=== PATIENT | female | born 1975 | race Caucasian/White ===

== ENCOUNTER → 2020-09-18 14:54 | Outpatient (BNVA) | payer MEDICAID, SELFPAY | PROVIDERS: PCP Family Medicine; Visit Provider Urology ==

== ENCOUNTER 2021-07-29 12:55 | Outpatient (REF) | payer MEDICAID, SELFPAY ==
--- NOTE | ~2021-07-29 | US_ITS ---
EXAMINATION: US RETROPERITONEAL LIMITED (RENAL ONLY) CLINICAL INFORMATION: Calculus of kidney. COMPARISON: Ultrasound abdomen complete 05/09/2017. TECHNIQUE: Real-time imaging of the kidneys. FINDINGS: RIGHT KIDNEY: 12.5 x 6.2 x 6.8 cm (SAG x AP x TRV). The kidney is normal in size, contour, and echogenicity. Renal cortical thickness is normal. No calculi or focal parenchymal lesions. No hydronephrosis. LEFT KIDNEY: 11.8 x 6.9 x 5.1 cm (SAG x AP x TRV). The kidney is normal in size, contour, and echogenicity. Renal cortical thickness is normal. No calculi or focal parenchymal lesions. No hydronephrosis. US/US renal BI IMPRESSION: No stone seen.
== END 2021-07-29 12:56 | disposition home or self-care (01) ==
LOC: HO.US 12:55
PROVIDERS: PCP Internal Medicine; Visit Provider Urology
DX: N20.0 Calculus of kidney (principal)
CPT/HCPCS: 76775

== ENCOUNTER → 2021-08-18 08:23 | Outpatient (BNVA) | payer MEDICAID, SELFPAY | PROVIDERS: PCP Internal Medicine; Visit Provider Urology | DX: N20.0 Calculus of kidney (principal); N32.81 Overactive bladder ==

== ENCOUNTER 2021-11-30 15:06 | Emergency (ER) | payer MEDICAID, SELFPAY ==
--- NOTE | ~2021-11-30 | US_ITS ---
EXAMINATION: ULTRASOUND OF THE PELVIS CLINICAL INFORMATION: Heavy vaginal bleeding. COMPARISON: None. TECHNIQUE: Transabdominal and transvaginal pelvic ultrasound. A transvaginal study was performed in addition to the transabdominal study which did not yield an adequate examination of the uterus and ovaries due to superimposed distended gas-filled loops of bowel. FINDINGS: The uterus is normal in size and appearance, measuring 9 x 4.5 x 5.6 cm longitudinally, anteroposteriorly and transversely. The endometrial stripe thickness is normal, measuring 1 cm in thickness. No focal myometrial mass is seen. Nabothian cysts are identified, appearing complex with internal echoes. The largest measures up to 1 cm. The ovaries bilaterally are visualized, with the right ovary measuring 4.7 x 3.4 x 3.9 cm and the left ovary measuring 2.9 x 1.7 x 1.6 cm. Dominant right ovarian cyst measures 3.1 cm with some internal echoes noted. No adnexal mass or free fluid collection seen. US/US pelvic and transvaginal IMPRESSION: Dominant right ovarian cyst measures 3.1 cm with some internal echoes. This could be a hemorrhagic cyst. Normal appearance of the endometrium. Complex nabothian cysts..
[2021-11-30 16:23] VITALS: BP 124/70; PULSE 86; RESP 16; TEMP 36.2; O2SAT 98; BMI 36.1
[2021-11-30 17:07] LABS: Hematocrit 40.1 % (37.0-47.0); Hemoglobin 12.8 g/dl (12.0-16.0); Mean Corpuscular HGB Conc 31.9 g/dl (31.0-35.0); Mean Corpuscular Hemoglobin 28.4 pg (27.0-33.0); Mean Corpuscular Volume 89.1 fL (80.0-98.0); Mean Platelet Volume 9.8 fL (9.4-12.3); Platelet Count 479 X10*3/uL (160-400); Red Cell Distribution Width 13.6 % (11.0-16.0); White Blood Count 16.8 X10*3/uL (4.8-10.8)
[2021-11-30 17:20] LABS: Anion Gap 11 (12-20); Blood Urea Nitrogen 13 mg/dL (9-16); Calcium 9.5 mg/dL (8.4-10.2); Carbon Dioxide 28 mmol/L (22-29); Chloride 103 mmol/L (96-108); Creatinine Clr Calc Pharmacy 95.8; Estimated Glomerular Filt Rate > 60; Glucose Random 69 mg/dL (60-115); Potassium 4.2 mmol/L (3.3-5.1); Sodium 138 mmol/L (135-145)
[2021-11-30 17:31] LABS: Atypical Lymph Absolute Manual 0.8 x10*3/uL; Atypical Lymphs Percent Manual 5 % (0-6); Band Neutrophils Percent 0 % (3-5); Basophils Abs Manual 0.2 X10*3/uL (0.0-0.2); Basophils Percent Manual 1 % (0-2); Eosinophils Absolute Manual 0.3 X10*3/uL (0.0-0.4); Eosinophils Percent Manual 2 % (0-4); Large Platelet PRESENT; Lymphocytes Absolute Manual 4.2 X10*3/uL (1.2-4.9); Lymphocytes Percent Manual 25 % (20-40); Monocytes Absolute Manual 1.7 X10*3/uL (0.1-1.2); Monocytes Percent Manual 10 % (2-11); Neutrophils Absolute Manual 9.6 X10*3/uL (2.0-8.3); Neutrophils Percent Manual 57 % (45-73); Platelet Estimate NORMAL (NORMAL); Platelet Morphology Comment NORMAL; RBC Morphology NORMAL
[2021-11-30 17:32] LABS: Acanthocytes 1+ (0-2) /OIF; Tear Drop Cells 1+ (0-2) /OIF; Toxic Vacuolation PRESENT
[2021-11-30 21:34] LABS: HCG Quantitative < 2 mIU/mL
[2021-11-30 22:29] VITALS: BP 121/72; PULSE 80; RESP 18; O2SAT 97
--- NOTE | 2021-11-30 22:34 | ED_ITS ---
HPI - Female Genitourinary General Chief complaint: Abdominal Pain Stated complaint: vaginal bleeding for 20 days Time Seen by Provider: 11/30/21 21:06 Source: patient Mode of arrival: ambulatory Limitations: no limitations History of Present Illness HPI Narrative: Patient comes to the emergency room complaining of heavy vaginal bleeding. Patient states that she has been having her menstrual period for 20 days. Patient states that over the last few months, her menstrual periods have been coming irregular, sometimes she has menstrual. Sometimes she does not, and at times like this time, it is very heavy. Patient denies abdominal pain, no chest pain or shortness of breath. Related Data Home Medications Medication Instructions Recorded Confirmed amlodipine 10 mg tablet 10 mg PO DAILY 08/18/21 aspirin 81 mg tablet,delayed 81 mg PO DAILY 08/18/21 release atorvastatin 40 mg tablet 40 mg PO DAILY 08/18/21 calcium carbonate 600 mg-vitamin 1 tab PO DAILY 08/18/21 D3 10 mcg (400 unit) tablet cetirizine 10 mg tablet 10 mg PO DAILY 08/18/21 clonazepam 1 mg tablet 1 mg PO TID PRN 08/18/21 escitalopram oxalate 10 mg tablet 10 mg PO DAILY 08/18/21 gabapentin 800 mg tablet 800 mg PO TID 08/18/21 glipizide 5 mg tablet 5 mg PO BID 08/18/21 hydrochlorothiazide 25 mg tablet 25 mg PO DAILY 08/18/21 losartan 100 mg tablet 100 mg PO DAILY 08/18/21 metformin 1,000 mg tablet 1,000 mg PO 08/18/21 Previous Rx's Medication Instructions Recorded tolterodine 4 mg capsule,extended 4 mg PO BID #180 caps 08/18/21 release 24 hr medroxyprogesterone 10 mg tablet 10 mg PO DAILY #10 tabs 12/01/21 (Provera) Allergies Allergy/AdvReac Type Severity Reaction Status Date / Time No Known Allergies Allergy Verified 11/30/21 16:38 [No Known Allergies*] Review of Systems Review of Systems: Constitutional : No Weight loss, No Fever, No Chills, No Night Sweats, No Fatigue, No Malaise ENT/Mouth : No Hearing loss, No Ear Pain, No Nasal Congestion, No Sinus Pain, No Hoarseness, No sore throat, No Rhinorrhea, No Swallowing Difficulty Eyes: No Eye Pain, No Swelling, No Redness, No Foreign Body, No Discharge, No Vision Changes Cardiovascular : No Chest Pain, No SOB, No Dyspnea on Exertion, No Orthopnea, No Edema, No Palpitations Respiratory : No Cough, No Sputum, No Wheezing, No Smoke Exposure, No Dyspnea Gastrointestinal : No Nausea, No Vomiting, No Diarrhea, No Constipation, No abdominal Pain, No Hematochezia, No Melena Genitourinary : Complaining of intermittent, irregular heavy vaginal bleeding, No Dysuria, No Urinary Frequency, No Hematuria, No Urinary Incontinence, No Urgency, No Flank Pain, No Urinary Flow Changes, No Hesitancy Musculoskeletal : No joint pain, No Myalgias, No Joint Swelling Skin : No Skin Lesions, No rash Neuro : No Weakness, No Numbness, No Paresthesias, No Loss of Consciousness, No Dizziness, No Headache Psych : No Anxiety/Panic, No Depression, No SI/HI/AH/VH, No Social Issues, Heme/Lymph: No Bruising, No Bleeding,No Lymphadenopathy Endocrine : No Polyuria, No Polydipsia, No Temperature Intolerance [facility] Past Medical History Medical History Carpal tunnel syndrome, bilateral Diabetes mellitus HTN (hypertension) Hyperlipidemia Urgency incontinence Urinary incontinence Surgical History History of surgery Family History Family History Father Skin cancer Diabetes mellitus Mother Diabetes mellitus Social History Social History Advance Directives: No Physical Exam Vital Signs: Vital Signs: Last Vital Signs Temp 97.2 F 11/30/21 16:23 Pulse 80 11/30/21 22:29 Resp 18 11/30/21 22:29 BP 121/72 11/30/21 22:29 Pulse Ox 97 11/30/21 22:29 O2 Del Method 11/30/21 22:29 BMI result Body Mass Index 36.1 Const: Other: Appearance: Alert. Oriented X3. No acute distress. Eyes: Pupils equal, round and reactive to light. ENT: Pharynx normal. Neck: Normal inspection. Neck supple. No lymph nodes noted. No crepitus CVS: Normal heart rate and rhythm. Pulses normal. Normal S1 and S2 Respiratory: No respiratory distress. Breath sounds normal. No Wheezing. No rales Abdomen: Soft and nontender. No rigidity. No distention. : Patient has mild to moderate vaginal bleeding. No cervical bleeding with applied pressure in the suprapubic area. No pain in the adnexa. Skin: Skin warm and dry. Normal skin color. Normal skin turgor. Extremities: No lower extremity edema. No Lacerations. No Rash Neuro: Oriented X 3. No motor deficit. No sensory deficit. Moving all extremities. No slurred speech. CN 2 through 12 grossly intact Psych: calm, cooperative, normal affect Course Course Course Narrative: This time, patient has oxog-wl-bdhmwpme vaginal bleeding. I discussed the ultrasound with the patient, patient may have hemorrhagic cyst. However, patient does not have any abdominal pain at this time. We do not have Provera and this facility. Patient will go to a 24 hour pharmacy and start treatment Despite 20 days of vaginal bleeding. Patient's hemoglobin and hematocrit is stable. MDM - Female Genitourinary Lab Data Result diagrams: 11/30/21 16:54 11/30/21 16:54 Labs: Lab Results 11/30/21 11/30/21 Range/Units 16:54 16:54 WBC 16.8 H (4.8-10.8) X10*3/uL RBC 4.50 (4.20-5.50) X10*6/uL Hgb 12.8 (12.0-16.0) g/dl Hct 40.1 (37.0-47.0) % MCV 89.1 (80.0-98.0) fL MCH 28.4 (27.0-33.0) pg MCHC 31.9 (31.0-35.0) g/dl RDW 13.6 (11.0-16.0) % Plt Count 479 H (160-400) X10*3/uL MPV 9.8 (9.4-12.3) fL Immature Gran % (Auto) Cancelled Neut % (Auto) Cancelled Lymph % (Auto) Cancelled [place] % (Auto) Cancelled Eos % (Auto) Cancelled Baso % (Auto) Cancelled Lymph # (Auto) Cancelled [place] # (Auto) Cancelled Eos # (Auto) Cancelled Baso # (Auto) Cancelled Abs Immat Gran (auto) Cancelled Absolute Neuts (auto) Cancelled Absolute Nucleated RBC 0.000 (0.0-0.012) X10*3/uL Nucleated RBC % (auto) 0.0 (0.0-0.2) /100WBC Neutrophils % (Manual) 57 (45-73) % Band Neutrophils % 0 L (3-5) % Lymphocytes % (Manual) 25 (20-40) % Atypical Lymphs % (Man) 5 (0-6) % Monocytes % (Manual) 10 (2-11) % Eosinophils % (Manual) 2 (0-4) % Basophils % (Manual) 1 (0-2) % Abs Neuts (Manual) 9.6 H (2.0-8.3) X10*3/uL Lymphocytes # (Manual) 4.2 (1.2-4.9) X10*3/uL Atyp Lymphs # (Manual) 0.8 x10*3/uL Monocytes # (Manual) 1.7 H (0.1-1.2) X10*3/uL Eosinophils # (Manual) 0.3 (0.0-0.4) X10*3/uL Basophils # (Manual) 0.2 (0.0-0.2) X10*3/uL Toxic Vacuolation PRESENT Platelet Estimate NORMAL (NORMAL) Large Platelets PRESENT Plt Morphology Comment NORMAL RBC Morphology NORMAL Tear Drop Cells 1+ (0-2) /OIF Acanthocytes (Spur) 1+ (0-2) /OIF Sodium 138 (135-145) mmol/L Potassium 4.2 (3.3-5.1) mmol/L Chloride 103 (96-108) mmol/L Carbon Dioxide 28 (22-29) mmol/L Anion Gap 11 L (12-20) BUN 13 (9-16) mg/dL Creatinine 0.76 (0.5-1.4) mg/dL Estim Creat Clear Calc 95.8 Estimated GFR > 60 Random Glucose 69 (60-115) mg/dL Calcium 9.5 (8.4-10.2) mg/dL Beta HCG, Quant < 2 mIU/mL Imaging Data Pelvic ultrasound: Radiologist's impression: FINDINGS: The uterus is normal in size and appearance, measuring 9 x 4.5 x 5.6 cm longitudinally, anteroposteriorly and transversely. The endometrial stripe thickness is normal, measuring 1 cm in thickness. No focal myometrial mass is seen. Nabothian cysts are identified, appearing complex with internal echoes. The largest measures up to 1 cm. The ovaries bilaterally are visualized, with the right ovary measuring 4.7 x 3.4 x 3.9 cm and the left ovary measuring 2.9 x 1.7 x 1.6 cm. Dominant right ovarian cyst measures 3.1 cm with some internal echoes noted. No adnexal mass or free fluid collection seen. US/US pelvic and transvaginal IMPRESSION: Dominant right ovarian cyst measures 3.1 cm with some internal echoes. This could be a hemorrhagic cyst. ? Normal appearance of the endometrium. ? Complex nabothian cysts.. Discharge Plan Discharge Clinical Impression: Dysfunctional uterine bleeding Patient Disposition: Home, Self-Care Instructions: Dysfunctional Uterine Bleeding (ED) Additional Instructions: Please follow-up with your primary care physician tomorrow. If you have any worsening or new symptoms, please return to the emergency room or call 911 Prescriptions: New medroxyprogesterone [Provera] 10 mg tablet 10 mg PO DAILY Qty: 10 0RF No Action clonazepam 1 mg tablet 1 mg PO TID PRN gabapentin 800 mg tablet 800 mg PO TID cetirizine 10 mg tablet 10 mg PO DAILY calcium carbonate-vitamin D3 600 mg-10 mcg (400 unit) tablet 1 tab PO DAILY glipizide 5 mg tablet 5 mg PO BID atorvastatin 40 mg tablet 40 mg PO DAILY hydrochlorothiazide 25 mg tablet 25 mg PO DAILY amlodipine 10 mg tablet 10 mg PO DAILY losartan 100 mg tablet 100 mg PO DAILY aspirin 81 mg tablet,delayed release (DR/EC) 81 mg PO DAILY metformin 1,000 mg tablet 1,000 mg PO escitalopram oxalate 10 mg tablet 10 mg PO DAILY tolterodine 4 mg capsule,extended release 24hr 4 mg PO BID Qty: 180 3RF
[2021-12-01 00:23] VITALS: BP 120/79; PULSE 70; RESP 16; TEMP 36.4; O2SAT 100
== END 2021-12-01 00:51 | disposition home or self-care (01) ==
PROVIDERS: Emergency Provider Emergency Medicine; PCP Internal Medicine
DX: N93.8 Other specified abnormal uterine and vaginal bleeding (principal); N92.0 Excessive and frequent menstruation with regular cycle; Z79.899 Other long term (current) drug therapy
CPT/HCPCS: 36415; 76830; 76856; 80048; 84702; 85007; 85025; 85027; 86850; 86900; 86901; 99283

== ENCOUNTER 2021-12-09 13:39 | Emergency (ER) | payer MEDICAID, SELFPAY ==
[2021-12-09 13:59] VITALS: BP 130/86; PULSE 92; RESP 18; TEMP 36.7; O2SAT 98; BMI 37.6
[2021-12-09 14:13] LABS: Hematocrit 34.3 % (37.0-47.0); Hemoglobin 11.1 g/dl (12.0-16.0); Mean Corpuscular HGB Conc 32.4 g/dl (31.0-35.0); Mean Corpuscular Hemoglobin 28.4 pg (27.0-33.0); Mean Corpuscular Volume 87.7 fL (80.0-98.0); Mean Platelet Volume 9.5 fL (9.4-12.3); Platelet Count 480 X10*3/uL (160-400); Red Blood Count 3.91 X10*6/uL (4.20-5.50); Red Cell Distribution Width 13.7 % (11.0-16.0)
[2021-12-09 14:35] LABS: Anion Gap 13 (12-20); Blood Urea Nitrogen 12 mg/dL (9-16); Calcium 8.9 mg/dL (8.4-10.2); Carbon Dioxide 25 mmol/L (22-29); Chloride 103 mmol/L (96-108); Creatinine Clr Calc Pharmacy 94.9; Estimated Glomerular Filt Rate > 60; Glucose Random 167 mg/dL (60-115); Potassium 3.9 mmol/L (3.3-5.1); Sodium 137 mmol/L (135-145)
--- NOTE | 2021-12-09 20:50 | ED_ITS ---
HPI - Female Genitourinary General Chief complaint: Vaginal Bleeding Stated complaint: cyst and bleeding Time Seen by Provider: 12/09/21 20:06 Source: patient, family and certified court/medical interpreter Mode of arrival: ambulatory History of Present Illness HPI Narrative: 46-year-old female who presents for persistent vaginal bleeding and reports maximum of 3 pads a day and feeling fatigued. She denies any fevers chills but states that she was seen here on 12/01 and diagnosed with DUB and started on Provera 10 mg daily. She states she has some mild cramping but denies any palpitations or shortness S of breath. Related Data Home Medications Medication Instructions Recorded Confirmed amlodipine 10 mg tablet 10 mg PO DAILY 08/18/21 aspirin 81 mg tablet,delayed 81 mg PO DAILY 08/18/21 release atorvastatin 40 mg tablet 40 mg PO DAILY 08/18/21 calcium carbonate 600 mg-vitamin 1 tab PO DAILY 08/18/21 D3 10 mcg (400 unit) tablet cetirizine 10 mg tablet 10 mg PO DAILY 08/18/21 clonazepam 1 mg tablet 1 mg PO TID PRN 08/18/21 escitalopram oxalate 10 mg tablet 10 mg PO DAILY 08/18/21 gabapentin 800 mg tablet 800 mg PO TID 08/18/21 glipizide 5 mg tablet 5 mg PO BID 08/18/21 hydrochlorothiazide 25 mg tablet 25 mg PO DAILY 08/18/21 losartan 100 mg tablet 100 mg PO DAILY 08/18/21 metformin 1,000 mg tablet 1,000 mg PO 08/18/21 Previous Rx's Medication Instructions Recorded tolterodine 4 mg capsule,extended 4 mg PO BID #180 caps 08/18/21 release 24 hr medroxyprogesterone 10 mg tablet 10 mg PO DAILY #10 tabs 12/01/21 (Provera) medroxyprogesterone 10 mg tablet 10 mg PO DAILY #10 tabs 12/09/21 (Provera) nitrofurantoin 100 mg PO Q12H 5 days #10 caps 12/09/21 monohydrate/macrocrystals 100 mg capsule (Macrobid) Allergies Allergy/AdvReac Type Severity Reaction Status Date / Time No Known Allergies Allergy Verified 11/30/21 16:38 [No Known Allergies*] Review of Systems Review of Systems: Pertinent positives and negatives as stated in HPI 10 point review of systems is otherwise negative. PMFSH Past Medical History Source: nursing notes reviewed Medical History Carpal tunnel syndrome, bilateral Diabetes mellitus HTN (hypertension) Hyperlipidemia Urgency incontinence Urinary incontinence Surgical History History of surgery Family History Family History Father Skin cancer Diabetes mellitus Mother Diabetes mellitus Social History Social History Advance Directives: No Advance Directives Information Provided: Yes Physical Exam Vital Signs: Vital Signs: Last Vital Signs Temp 98.1 F 12/09/21 13:59 Pulse 92 12/09/21 13:59 Resp 18 12/09/21 13:59 BP 130/86 12/09/21 13:59 Pulse Ox 98 12/09/21 13:59 O2 Del Method 12/09/21 13:59 BMI result Body Mass Index 37.6 VITAL SIGNS: Reviewed. GENERAL: Well developed, well nourished, in no acute distress. HEAD: Normocephalic/atraumatic EYES: PERRLA, EOMI EARS: Ext canals without abnormality OROPHARYNX: no oral lesions noted, posterior pharynx clear LUNGS: Normal breath sounds. No adventitious sounds or accessory muscle use. SpO2<98> CARDIOVASCULAR: Regular rate and rhythm without noted murmurs ABDOMEN: Soft, non-tender, non-distended with bowel sounds. MUSCULOSKELETAL: No tenderness, deformities, or effusions noted on gross inspection. EXTREMITIES: No cyanosis, clubbing or edema. SKIN: Inspection of the skin reveals no rashes NEUROLOGIC: Alert and oriented x 4. Course Course Course Narrative: 46-year-old female with history and clinical presentation consistent with DUB. Review of all investigations demonstrates mild anemia and I discussed case with the on-call appliance fixer and recommendation is for continuation of the Provera and he will adjust patient's appointment but she needs to call the office in the morning. Patient has been diagnosed the UTI as well. MDM - Female Genitourinary Lab Data Result diagrams: 12/09/21 14:07 12/09/21 14:07 Labs: Lab Results 12/09/21 12/09/21 12/09/21 Range/Units 14:07 14:07 21:05 WBC 12.0 H (4.8-10.8) X10*3/uL RBC 3.91 L (4.20-5.50) X10*6/uL Hgb 11.1 L (12.0-16.0) g/dl Hct 34.3 L (37.0-47.0) % MCV 87.7 (80.0-98.0) fL MCH 28.4 (27.0-33.0) pg MCHC 32.4 (31.0-35.0) g/dl RDW 13.7 (11.0-16.0) % Plt Count 480 H (160-400) X10*3/uL MPV 9.5 (9.4-12.3) fL Absolute Nucleated RBC 0.000 (0.0-0.012) X10*3/uL Nucleated RBC % (auto) 0.0 (0.0-0.2) /100WBC Sodium 137 (135-145) mmol/L Potassium 3.9 (3.3-5.1) mmol/L Chloride 103 (96-108) mmol/L Carbon Dioxide 25 (22-29) mmol/L Anion Gap 13 (12-20) BUN 12 (9-16) mg/dL Creatinine 0.78 (0.5-1.4) mg/dL Estim Creat Clear Calc 94.9 Estimated GFR > 60 POC Glucose 87 (60-115) mg/dL Random Glucose 167 H (60-115) mg/dL Calcium 8.9 D (8.4-10.2) mg/dL Urine Color Urine Appearance Urine pH (5.0-8.0) Ur Specific [place] (1.005-1.025) Urine Protein (NEG-TRACE) MG/DL Urine Glucose (UA) (NEG) MG/DL Urine Ketones (NEG) MG/DL Urine Blood (NEG) Urine Nitrite (NEG) Ur Leukocyte Esterase (NEG) Urine RBC (0) /HPF Urine WBC (0-4) /HPF Ur Squamous Epith Cells /LPF Urine Bacteria /LPF Urine Test (NEGATIVE) 12/09/21 12/09/21 Range/Units 21:07 21:07 WBC (4.8-10.8) X10*3/uL RBC (4.20-5.50) X10*6/uL Hgb (12.0-16.0) g/dl Hct (37.0-47.0) % MCV (80.0-98.0) fL MCH (27.0-33.0) pg MCHC (31.0-35.0) g/dl RDW (11.0-16.0) % Plt Count (160-400) X10*3/uL MPV (9.4-12.3) fL Absolute Nucleated RBC (0.0-0.012) X10*3/uL Nucleated RBC % (auto) (0.0-0.2) /100WBC Sodium (135-145) mmol/L Potassium (3.3-5.1) mmol/L Chloride (96-108) mmol/L Carbon Dioxide (22-29) mmol/L Anion Gap (12-20) BUN (9-16) mg/dL Creatinine (0.5-1.4) mg/dL Estim Creat Clear Calc Estimated GFR POC Glucose (60-115) mg/dL Random Glucose (60-115) mg/dL Calcium (8.4-10.2) mg/dL Urine Color OTHER A Urine Appearance HAZY Urine pH 5.5 (5.0-8.0) Ur Specific [place] 1.025 (1.005-1.025) Urine Protein TRACE (NEG-TRACE) MG/DL Urine Glucose (UA) NEG (NEG) MG/DL Urine Ketones NEG (NEG) MG/DL Urine Blood 3+ H (NEG) Urine Nitrite NEG (NEG) Ur Leukocyte Esterase 2+ H (NEG) Urine RBC 50-75 H (0) /HPF Urine WBC 5-9 H (0-4) /HPF Ur Squamous Epith Cells TRACE /LPF Urine Bacteria TRACE /LPF Urine Test NEGATIVE (NEGATIVE) Discharge Plan Discharge Clinical Impression: Abnormal uterine bleeding (AUB), UTI (urinary tract infection), Anemia Patient Disposition: Home, Self-Care Instructions: Iron Supplements (By mouth), Dysfunctional Uterine Bleeding (ED), Urinary Tract Infection in Women (ED), Iron Rich Diet (ED), Anemia (ED) Additional Instructions: 1. Complete todo el curso de antibi?ticos seg?n lo prescrito. 2. Continuar? con Provera hasta que sea evaluado por el Dr. Zerbe 3. Recomiende comenzar con suplementos de wilfredo de venta tra, ya que se le proporcion? la informaci?n anterior y debe tomarlo diariamente. Deber? tomarlo con alimentos y beber keenan agua, ya que puede causar algo de estre?imiento y cambiar? lopez ke a un color oscuro / thee. 4. El Dr. Alcantar gannon dicho que llame a la oficina por la ma?gissel y acerque la tami al lunes. Regrese a la mar de emergencias si los s?ntomas empeoran. Prescriptions: New nitrofurantoin monohyd/m-cryst [Macrobid] 100 mg capsule 100 mg PO Q12H 5 Days Qty: 10 0RF Rx Instructions: must administer with a meal/food medroxyprogesterone [Provera] 10 mg tablet 10 mg PO DAILY Qty: 10 0RF No Action medroxyprogesterone [Provera] 10 mg tablet 10 mg PO DAILY Qty: 10 0RF clonazepam 1 mg tablet 1 mg PO TID PRN gabapentin 800 mg tablet 800 mg PO TID cetirizine 10 mg tablet 10 mg PO DAILY calcium carbonate-vitamin D3 600 mg-10 mcg (400 unit) tablet 1 tab PO DAILY glipizide 5 mg tablet 5 mg PO BID atorvastatin 40 mg tablet 40 mg PO DAILY hydrochlorothiazide 25 mg tablet 25 mg PO DAILY amlodipine 10 mg tablet 10 mg PO DAILY losartan 100 mg tablet 100 mg PO DAILY aspirin 81 mg tablet,delayed release (DR/EC) 81 mg PO DAILY metformin 1,000 mg tablet 1,000 mg PO escitalopram oxalate 10 mg tablet 10 mg PO DAILY tolterodine 4 mg capsule,extended release 24hr 4 mg PO BID Qty: 180 3RF Referrals: Henry Harvey MD [Primary Care Provider] - Mina Alcantar MD [Physician] - Print Language: Yi
[2021-12-09 21:12] LABS: Glucose, Whole Blood 87 mg/dL (60-115)
[2021-12-09 21:14] LABS: Appearance Urine HAZY; Color Urine OTHER; Glucose Urine UA NEG (NEG); Leukocyte Esterase Urine 2+ (NEG); Nitrite Urine NEG (NEG); PH 5.5 (5.0-8.0); Specific Gravity - Urine 1.025 (1.005-1.025); UACC Culture Trigger YES; Urine Blood 3+ (NEG); Urine Ketones NEG (NEG); Urine Protein TRACE MG/DL (NEG-TRACE)
[2021-12-09 21:17] LABS: UPreg QC Valid YES; Urine Pregnancy NEGATIVE (NEGATIVE)
[2021-12-09 21:20] LABS: Bacteria Urine TRACE /LPF; RBC Urine 50-75 /HPF (0); Squamous Epithelial Cell Urine TRACE /LPF
[2021-12-09] MEDS: Nitrofurantoin Monohyd/M-Cryst 100 MG CAPSULE PO (21:54)
== END 2021-12-09 22:06 | disposition home or self-care (01) ==
PROVIDERS: Emergency Provider Student in an Organized Health Care Education/Training Program; PCP Internal Medicine
DX: N39.0 Urinary tract infection, site not specified (principal); N93.8 Other specified abnormal uterine and vaginal bleeding; Z79.899 Other long term (current) drug therapy; Z79.82 Long term (current) use of aspirin
CPT/HCPCS: 36415; 80048; 81001; 81025; 82947; 85027; 87086; 99282; 99283

== ENCOUNTER 2021-12-15 13:36 | Outpatient (REF) | payer MEDICAID, SELFPAY ==
[2021-12-16 06:51] LABS: CT PCR NOT DETECTED (Not Detect.); NG PCR NOT DETECTED (Not Detect.)
[2021-12-18 12:47] LABS: HPV mRNA E6/E7 rflx Not Detected (Not Detected)
== END 2021-12-15 13:37 | disposition home or self-care (01) ==
LOC: HO.LAB 13:36
PROVIDERS: Visit Provider Obstetrics & Gynecology
DX: Z01.419 Encounter for gynecological examination (general) (routine) without abnormal findings (principal); N93.9 Abnormal uterine and vaginal bleeding, unspecified; N83.299 Other ovarian cyst, unspecified side
CPT/HCPCS: 87491; 87591; 87624; 88142; 99212

== ENCOUNTER 2022-01-05 10:19 | Outpatient (REF) | payer MEDICAID, SELFPAY ==
--- NOTE | ~2022-01-05 | MM_ITS ---
EXAMINATION: MM SCREENING DIGITAL BREAST TOMOSYNTHESIS, BILATERAL CLINICAL INFORMATION: Screening. Asymptomatic. The lifetime risk of breast cancer based on the Tyrer-Cuzick Model is 8%. COMPARISON: Mammography: 08/01/2019, 09/08/2016, 02/21/2014 TECHNIQUE: Digital breast tomosynthesis is performed in both the craniocaudal and mediolateral oblique views along with computer-aided detection (CAD). Synthesized 2D images are generated from the tomosynthesis. FINDINGS: There are scattered areas of fibroglandular density (ACR BI-RADS breast composition Category b). Parenchymal pattern is similar to prior exams. There is no significant mass or architectural abnormality. No developing density or abnormal calcifications. The axilla and skin contours are unremarkable. MM/MM tomosynthesis screening BI IMPRESSION: No mammographic evidence of malignancy. ASSESSMENT: BI-RADS 1: Negative RECOMMENDATION: Routine annual mammography screening. This patient's information was entered into a reminder system with a target due date for their next mammogram.
== END 2022-01-05 10:20 | disposition home or self-care (01) ==
LOC: HO.MAMMO 10:19
PROVIDERS: Visit Provider Obstetrics & Gynecology
DX: Z12.31 Encounter for screening mammogram for malignant neoplasm of breast (principal)
CPT/HCPCS: 77063; 77067

== ENCOUNTER 2022-01-07 10:23 | Outpatient (REF) | payer MEDICAID, SELFPAY ==
[2022-01-07 11:28] LABS: Hematocrit 39.2 % (37.0-47.0); Hemoglobin 12.6 g/dl (12.0-16.0); Mean Corpuscular HGB Conc 32.1 g/dl (31.0-35.0); Mean Corpuscular Hemoglobin 28.3 pg (27.0-33.0); Mean Corpuscular Volume 87.9 fL (80.0-98.0); Mean Platelet Volume 10.1 fL (9.4-12.3); Platelet Count 540 X10*3/uL (160-400); Red Blood Count 4.46 X10*6/uL (4.20-5.50); Red Cell Distribution Width 13.3 % (11.0-16.0); White Blood Count 10.9 X10*3/uL (4.8-10.8)
[2022-01-07 12:15] LABS: HCG Quantitative < 2 mIU/mL; TSH reflex Free T4 1.19 uIU/mL (0.32-4.0)
[2022-01-10 13:37] LABS: CA-125 6 U/mL (<35)
== END 2022-01-07 10:24 | disposition home or self-care (01) ==
LOC: HO.LAB 10:23
PROVIDERS: PCP Internal Medicine; Visit Provider Obstetrics & Gynecology
DX: N93.9 Abnormal uterine and vaginal bleeding, unspecified (principal); N83.299 Other ovarian cyst, unspecified side; Z13.29 Encounter for screening for other suspected endocrine disorder
CPT/HCPCS: 36415; 84443; 84702; 85027; 86304

== ENCOUNTER 2022-01-11 12:52 | Outpatient (REF) | payer MEDICAID, SELFPAY | END 2022-01-11 12:53 | disposition home or self-care (01) | LOC: HO.LAB 12:52 | PROVIDERS: PCP Internal Medicine; Visit Provider Obstetrics & Gynecology | DX: Z32.02 Encounter for pregnancy test, result negative (principal); N93.9 Abnormal uterine and vaginal bleeding, unspecified | CPT/HCPCS: 58100; 81025; 88305 ==

== ENCOUNTER 2022-01-26 14:31 | Outpatient (REF) | payer MEDICAID, SELFPAY ==
[2022-01-26 14:52] LABS: Hematocrit 38.5 % (37.0-47.0); Hemoglobin 12.5 g/dl (12.0-16.0); Mean Corpuscular HGB Conc 32.5 g/dl (31.0-35.0); Mean Corpuscular Hemoglobin 27.6 pg (27.0-33.0); Mean Platelet Volume 9.6 fL (9.4-12.3); Platelet Count 481 X10*3/uL (160-400); Red Blood Count 4.53 X10*6/uL (4.20-5.50); Red Cell Distribution Width 13.2 % (11.0-16.0); White Blood Count 11.9 X10*3/uL (4.8-10.8)
[2022-01-29 11:07] LABS: CA-125 3 U/mL (<35)
== END 2022-01-26 14:32 | disposition home or self-care (01) ==
LOC: HO.LAB 14:31
PROVIDERS: PCP Internal Medicine; Visit Provider Obstetrics & Gynecology
DX: N93.9 Abnormal uterine and vaginal bleeding, unspecified (principal); N83.299 Other ovarian cyst, unspecified side
CPT/HCPCS: 36415; 85027; 86304; 99212

== ENCOUNTER → 2022-02-03 11:52 | Outpatient (BNVA) | payer MEDICAID, SELFPAY | PROVIDERS: PCP Internal Medicine; Visit Provider Obstetrics & Gynecology | DX: N93.9 Abnormal uterine and vaginal bleeding, unspecified (principal) | CPT/HCPCS: 99212 ==

== ENCOUNTER 2023-01-06 11:01 | Outpatient (REF) | payer MEDICAID, SELFPAY | END 2023-01-06 11:02 | disposition home or self-care (01) | LOC: HO.MAMMO 11:01 | PROVIDERS: PCP Internal Medicine; Visit Provider Internal Medicine | DX: Z12.31 Encounter for screening mammogram for malignant neoplasm of breast (principal) | CPT/HCPCS: 77063; 77067 ==

== ENCOUNTER → 2023-01-06 11:15 | Outpatient (BNV) | payer MEDICAID, SELFPAY | PROVIDERS: PCP Internal Medicine; Visit Provider Radiology Diagnostic Radiology | DX: Z12.31 Encounter for screening mammogram for malignant neoplasm of breast (principal) | CPT/HCPCS: 77063; 77067 ==

== ENCOUNTER 2023-02-06 15:52 | Outpatient (REF) | payer MEDICAID, SELFPAY ==
[2023-02-06 18:12] LABS: Basophils Absolute Auto 0.1 X10*3/uL (0.0-0.2); Eosinophils Absolute Auto 0.3 X10*3/uL (0.0-0.4); Hemoglobin 14.8 g/dl (12.0-16.0); Imm Gran Abs Auto 0.08 X10*3/uL (0.00-0.03); Imm Gran Pct Auto 0.6 % (0.0-0.4); Lymphocytes Absolute Auto 5.3 X10*3/uL (1.2-4.9); Lymphocytes Percent Auto 40.9 % (20-40); MANUAL DIFF FLAG SCAN; Mean Corpuscular HGB Conc 31.5 g/dl (31.0-35.0); Mean Corpuscular Hemoglobin 28.5 pg (27.0-33.0); Mean Corpuscular Volume 90.4 fL (80.0-98.0); Mean Platelet Volume 10.6 fL (9.4-12.3); Monocytes Absolute Auto 0.9 X10*3/uL (0.1-1.2); Neutrophils Absolute Auto 6.2 x10*3/uL (2.0-8.3); Neutrophils Percent Auto 48.5 % (45-73); Platelet Count 494 X10*3/uL (160-400); Red Cell Distribution Width 14.7 % (11.0-16.0); SCAN SMEAR FLAG 1; White Blood Count 12.9 X10*3/uL (4.8-10.8)
[2023-02-06 18:31] LABS: Alanine Aminotransferase 23 U/L (0-31); Albumin Level 4.1 g/dL (3.5-5.0); Alkaline Phosphatase 59 U/L (39-117); Anion Gap 16 (12-20); Aspartate Amino Transferase 20 U/L (5-31); Bilirubin Total 0.3 mg/dL (0.0-1.0); Blood Urea Nitrogen 16 mg/dL (9-16); Calcium 9.7 mg/dL (8.4-10.2); Carbon Dioxide 21 mmol/L (22-29); Chloride 106 mmol/L (96-108); Cholesterol 165 mg/dL (<200); Estimated Glomerular Filt Rate > 60; Glucose Random 80 mg/dL (60-115); HDL Cholesterol 34 mg/dL (>40); LDL Cholesterol Calculated 102 mg/dL (<100); Potassium 3.8 mmol/L (3.3-5.1); Sodium 139 mmol/L (135-145); Total Protein 7.4 g/dL (6.5-8.0); Triglycerides 147 mg/dL (<150)
[2023-02-06 18:44] LABS: SLIDE REVIEW VERIFIED
[2023-02-06 18:49] LABS: Vitamin D 25-OH Total 45.1 ng/mL (>30)
[2023-02-06 18:56] LABS: Creatinine Urine 41.44 mg/dL; Microalbumin Urine < 5.0 mg/L
[2023-02-07 04:09] LABS: ~HepC Num1 0.17 S/CO (0.00-0.79); ~Hepatitis C Antibody Nonreactive (Nonreactive)
[2023-02-09 14:13] LABS: HIV RNA PCR Qn Copies Not Detected Copies/mL; HIV RNA PCR Qn Log Copies Not Detected Log cps/mL
== END 2023-02-06 15:53 | disposition home or self-care (01) ==
LOC: HO.CHCLDS 15:52
PROVIDERS: Visit Provider Internal Medicine
DX: Z11.4 Encounter for screening for human immunodeficiency virus [HIV] (principal); E11.42 Type 2 diabetes mellitus with diabetic polyneuropathy
CPT/HCPCS: 36415; 80053; 80061; 82306; 82570; 84443; 85025; 86803; 87536; 87900

== ENCOUNTER → 2023-03-31 13:02 | Outpatient (BNV) | payer MEDICAID, SELFPAY | PROVIDERS: PCP Internal Medicine; Visit Provider Internal Medicine | DX: D75.839 Thrombocytosis, unspecified (principal) | CPT/HCPCS: 99204 ==

== ENCOUNTER 2024-01-16 13:07 | Outpatient (AMB) | payer MEDICAID, SELFPAY ==
--- NOTE | 2024-01-16 13:33 | MHC.OFFVIS ---
Intake Visit Reasons: Overactive Bladder/PVR Intake Note: Patient is present for OVERACTIVE BLADDER /PVR Urology Medication:TOLTERODINE Antibiotic Allergy:NONE Blood Thinner:ASPIRIN Today's PVR:0ML'S Winch Truck Operator Required: No Accompanied by: Self / Same As Patient Allergies No Known Allergies [No Known Allergies*] Allergy (Verified 01/16/24 13:35) HPI Comments Details: Marie is a female. She is a patient of Dr. Olivas. She is seen for the following urologic issues. - stress incontinence - overactive bladder Last seen 11/15/2021 Had been on tolterodine for urgency and frequency No longer effective Progressive diabetes on Jardiance. UA positive for glucose. Waking every 2-3 hours at night. Two prior procedures for stress incontinence. At this point in time reports has recurred Given complicated neurourology history recommend urodynamics with follow-up with Dr. Roth for possible assessment of InterStim Trial Myrbetriq Stress incontinence Previously underwent mid urethral sling De Maria Elena urinary urgency and frequency - diabetes long standing - on gabapentin Responded previously to tolterodine ER 4 mg b.i.d. [facility] Medical History Carpal tunnel syndrome, bilateral Diabetes mellitus HTN (hypertension) Hyperlipidemia Urgency incontinence Urinary incontinence Surgical History H/O tubal ligation History of surgery Family History Father Skin cancer Diabetes mellitus Mother Diabetes mellitus Social History Household Members Other:: daughter Housing: House Alcohol intake: never Patient Tobacco Use Status: Current everyday Tobacco user Review of Systems Const Denies chills and Denies fever(s) Card Reports no additional complaints and Denies syncope Resp Denies cough GI Denies abdominal pain and Denies heartburn Reports as per HPI and Denies change in libido Neuro Denies syncope Psych Denies change in libido Endo Denies change in libido Physical Exam Const General: cooperative, healthy appearing, comfortable and no acute distress Orientation/consciousness: patient oriented x3 HEENT Face and sinus: Yes normal facial exam Mouth: moist mucous membranes Neck Neck: Yes normal visual inspection, Yes full ROM and Yes trachea midline Chest Chest palpation & inspection: normal inspection of the chest Resp Effort & Inspection: normal respiratory effort, able to speak in complete sentences and no respiratory distress GI Inspection: Yes normal to inspection Back/Spine/Pelvis Cervical Spine: normal cervical lordosis Thoracic/Lumbar Spine: thoracic and lumbar spine normal to inspection Skin General skin exam: no rashes or lesions noted Neuro General: patient oriented x3, gait normal, tone normal and moves all extremities Extrem General: Yes normal to inspection and Yes capillary refill normal Office Procedures Post Void Residual Post Residual Void Post Void Residual (PVR): 0 22437-[id number] Void Residual by ultrasound Assessment & Plan Assessment & Plan (1) Nephrolithiasis: Code(s): N20.0 - Calculus of kidney Category: Medical (2) Overactive bladder: Code(s): N32.81 - Overactive bladder Category: Medical Plan Urodynamics Medications: New mirabegron ER (Myrbetriq) 50 mg PO DAILY 30 days 30 tabs 3RF N32.81 - Overactive bladder Patient Instructions: Imaging studies, laboratory and physical exam results were discussed and reviewed in detail. No major barriers to patient understanding were identified. An opportunity to ask questions regarding the treatment plan was provided. All questions were answered. The patient expressed understanding and agreement with the above treatment plan. The patient is aware they should contact our office by phone for worsening of their current condition or the appearance of new urologic symptoms. Compliance is encouraged with any medications and followup testing that is ordered. It is a privilege to participate in the urologic care of your patient. If you have any questions or concerns regarding treatment for the above conditions, or other urologic issues, please do not hesitate to contact me. The office telephone contact is [phone]. This note is constructed using voice recognition software. While every effort has been made to ensure accuracy paper and pulp mill operator errors may have been included. Yours sincerely, Dr Joe Crow MD, [facility] - Urology Providers of Expert, Compassionate Care for the Genitourinary System Coding Level of Care Code Est Pt Level 4 (57003) Diagnoses Nephrolithiasis N20.0 Overactive bladder N32.81 CPT Codes Post Residual Void - PVR CPT Code: 09285-Vhqz Void Residual by ultrasound ([id number])
== END 2024-01-16 14:06 | disposition home or self-care (01) ==
PROVIDERS: PCP Internal Medicine; Referring Provider Internal Medicine; Visit Provider Urology
DX: N20.0 Calculus of kidney (principal); N32.81 Overactive bladder; Z13.9 Encounter for screening, unspecified
CPT/HCPCS: 99214

== ENCOUNTER → 2024-01-16 13:07 | Outpatient (BNVA) | payer MEDICAID, SELFPAY | PROVIDERS: PCP Internal Medicine; Visit Provider Urology | DX: N32.81 Overactive bladder (principal); N39.3 Stress incontinence (female) (male); N20.0 Calculus of kidney | CPT/HCPCS: 51798; 81003; 99212 ==

== ENCOUNTER 2024-03-15 11:30 | Outpatient (REF) | payer MEDICAID, SELFPAY ==
[2024-03-15 13:46] LABS: Estimated Average Glucose 146 mg/dL; Hemoglobin A1C 197.0244 umol/L; Hemoglobin A1c % 6.7 % (<6.0)
[2024-03-15 13:49] LABS: Alanine Aminotransferase 30 U/L (0-31); Albumin Level 4.1 g/dL (3.5-5.0); Alkaline Phosphatase 66 U/L (39-117); Anion Gap 14 (12-20); Aspartate Amino Transferase 17 U/L (5-31); Bilirubin Total 0.3 mg/dL (0.0-1.0); Blood Urea Nitrogen 13 mg/dL (9-16); Calcium 8.8 mg/dL (8.4-10.2); Carbon Dioxide 27 mmol/L (22-29); Chloride 105 mmol/L (96-108); Cholesterol 135 mg/dL (<200); Estimated Glomerular Filt Rate > 60; Glucose Random 163 mg/dL (60-115); HDL Cholesterol 31 mg/dL (>40); LDL Cholesterol Calculated 88 mg/dL (<100); Potassium 3.9 mmol/L (3.3-5.1); Sodium 142 mmol/L (135-145); Triglycerides 83 mg/dL (<150)
== END 2024-03-15 11:31 | disposition home or self-care (01) ==
LOC: HO.HHCL 11:30
PROVIDERS: Visit Provider Internal Medicine
DX: E11.42 Type 2 diabetes mellitus with diabetic polyneuropathy (principal)
CPT/HCPCS: 36415; 80053; 80061; 83036

== ENCOUNTER 2024-03-19 16:20 | Outpatient (REF) | payer MEDICAID, SELFPAY ==
[2024-03-20 13:53] LABS: Bacterial Vaginosis PCR NEGATIVE (Negative); Candida Group PCR DETECTED (Not Detect); Candida glab krusei PCR NOT DETECTED (Not Detect); Trichomonas vaginalis PCR NOT DETECTED (Not Detect)
== END 2024-03-19 16:21 | disposition home or self-care (01) ==
LOC: HO.CHCLNP 16:20
PROVIDERS: Visit Provider Internal Medicine
DX: N89.8 Other specified noninflammatory disorders of vagina (principal)
CPT/HCPCS: 0352U

== ENCOUNTER → 2024-07-03 15:28 | Outpatient (BNVA) | payer MEDICAID, SELFPAY | PROVIDERS: PCP Internal Medicine; Visit Provider Urology | DX: N32.81 Overactive bladder (principal); N20.0 Calculus of kidney; N39.41 Urge incontinence | CPT/HCPCS: 99212 ==

== ENCOUNTER 2025-02-28 10:26 | Outpatient (AMB) | payer MEDICAID, SELFPAY ==
--- NOTE | 2025-02-28 07:56 | MHC.OFFVIS ---
Intake Visit Reasons: LDCT Allergies No Known Allergies (No Known Allergies*) Allergy (Verified 07/03/24 15:35) HPI HPI LDCT: Details: Initial visit for this 49yo smoker with a 30PYH. Patient started smoking at age 17 for 32 years at 1ppd. . Denies marijuana use. Denies second hand smoke exposure. Denies exposure to chemicals or substances like asbestos. . Denies known family history of lung cancer. Denies personal history of cancers. Denies chest CT in last year. . Denies recent travel outside the [place]. Denies recent respiratory illness or recent hospitalization for respiratory issues. Denies testing positive for COVID. Admits receiving COVID Vaccine. . Denies fever, chills, new/worsening cough, hemoptysis, hoarseness or dysphagia. Denies significant chest pain, significant dyspnea or unintentional weight loss. Patient Lung Cancer Screening Questionnaire reviewed with patient by provider. . Shared Decision Making Completed. Patient meets criteria. Discussed in detail with patient, the risk vs benefit of LDCT screening. Patient consents to proceed with scan. Discussed smoking cessation. [facility] Medical History (Updated 02/28/25 @ 10:29 by Brandy Greenberg PA-C) Nicotine dependence, cigarettes, uncomplicated Carpal tunnel syndrome, bilateral Urinary incontinence Diabetes mellitus Hyperlipidemia HTN (hypertension) Urgency incontinence Surgical History (Updated 01/02/25 @ 10:09 by Brandy Greenberg PA-C) History of pubovaginal sling H/O tubal ligation Family History Father Skin cancer Diabetes mellitus Mother Diabetes mellitus Social History (Updated 02/28/25 @ 10:29 by Brandy Greenberg PA-C) Household Members Other:: daughter Housing: House Alcohol intake: never Patient Tobacco Use Status: Current everyday Tobacco user Years Smoked: (onset 17yo, 1ppd x 32yrs, 30pyh) Assessment & Plan Assessment & Plan (1) Nicotine dependence, cigarettes, uncomplicated: Comment: (onset 17yo, 1ppd x 32yrs, 30pyh) Code(s): F17.210 - Nicotine dependence, cigarettes, uncomplicated Category: Medical Plan: - SDM visit completed today in office. - Patient meets criteria for LDCT for lung cancer screening purposes and is asymptomatic. - Smoking cessation counseling offered. Patients can always call [phone]. - Will arrange for a LDCT scan of the chest for screening purposes at [facility]. - Risks, benefits, and alternatives were discussed in detail and the patient agrees to proceed. - Risks discussed include but are not limited to: radiation exposure, anxiety during testing and while awaiting results, false negatives, false positives and possibility of additional intervention such as further imaging or surgical procedures for benign disease. - Benefits are obviously detection of lung cancer at an early stage which can lead to improved outcomes. - Discussed the importance of screening program compliance with adherence to yearly LDCT scan as scheduled - or sooner interval scans for personalized screening regimen. - Discussed follow up plan. Our office will send a letter discussing results and if needed set up phone call and office visit based on CT findings. - Patient educated on results categorization and the management decisions for suspicious findings potentially found on the screening LDCT scan. Any patient with a Lung RADS score of 3 or 4 will be reviewed by a multidisciplinary team at [facility] to form a plan of action in regards to scan findings. - If further work up is warranted for a suspicious lung finding this will be followed by the Lung Cancer Screening program in conjunction with the Thoracic Surgery Department at [facility]. - A copy of the office note and LDCT will be sent to the patient's PCP - as well as documentation on any associated further plans of care. - Incidental findings on LDCT are the PCP's responsibility. These findings are indicated with an S finding on the LDCT Assessment. A note discussing the findings will be sent to the PCP who is then responsible for further management. - All questions answered.? Coding Level of Care Code Lung Cancer Screening G0296 Diagnoses Nicotine dependence, cigarettes, uncomplicated F17.210
--- OUTSIDE RECORDS SUMMARY | 2025-02-28 11:19 | XMS_ITS | Encounter Summary ---
Author Organization [employer] Address [address] [place] [address] Care Team Providers Care Long Term Care Administrator Name Role Phone Henry Harvey MD Primary Care Prov ider Encounter Details Date Type Department Care Team (Latest Contact Info) Description 08/09/2018 Abstract [facility] CONVERSIONS Dental, Provider, DDS Social History Tobacco Use Types Packs/Day Years Used Date Smoking Tobacco: Never Assessed Comments Unknown Sex and Gender Information Value Date Recorded Sex Assigned at Female 03/28/2022 10:26 AM EDT Legal Sex Female 10:26 AM EDT Gender Identity Female 03/28/2022 10:26 AM EDT Sexual Orientation Straight 03/28/2022 10 :26 AM EDT documented as of this encounter Plan of Treatment Upcoming Encounters Date Type Department Care Team (Late st Contact Info) Description 04/21/2025 12:45 PM EST Office Visit [facility] ADULT DENTAL [address] [place] [address] [place], [address] [place] [address] documented as of this encounter Visit Diagnoses Not on filedocumented in this encounter Care Teams Long Term Care Administrator Relationship Specialty Start Date End Date Henry Harvey MD [address] [place] [address] PCP - General Internal Medicine 10/27/19 documented as of this encounter
--- OUTSIDE RECORDS SUMMARY | 2025-02-28 11:19 | XMS_ITS | Encounter Summary ---
Author Organization [employer] Address [address] [place] [address] Care Team Providers Care Meteorologist Liaison Name Role Phone Henry Harvey MD Primary Care Prov ider Encounter Details Date Type Department Care Team ([facility] Contact Info) Description 02/28/2025 Orders Only [facility] External Provider, [facility] Social History Tobacco Use Types Packs/Day Years Used Date Smoking Tobacco: Every Day Cigarettes 1 28 Smokeless Tobacco: Never Alcohol Use Standard Drinks/Week Comments Yes 0 (1 standard drink = 0.6 oz pur e alcohol) Depression Answer Date Recorded Patient Health Questionnaire-9 Score 0 07/25/2024 Patient Health Questionnaire-9 Score 0 07/25/2024 Last PHQ-9: Questionnaire Data Not on file 0 07/25/2024 Housing Stability Answer Date Recorded What is your housing situation today? I have conradroman concepcion 03/19/[address] you li ve. Do you have problems with any of the following? None of the above 03/19/2024 Food Insecurity Answer Date Recorded Within the past 12 months, y ou worried that your food would run out before you got money to buy more: Never True 03/19/2024 Within the past 12 months,th e food you bought just didn't last and you didn't have enough money to get more: Never True Transportation Answer Date Recorded In the past 12 months, has l ack of transportation kept you from medical appts, meetings, work or from getting things needed for daily living? No 03/19/2024 Utilities Answer Date Recorded In the past 12 months, has t he electric, gas, oil or water company threatened to shut off services in your home? No 03/19/2024 Depression Answer Date Recorded Patient Health Questionnaire-2 Score 0 07/25/2024 Internet Access Answer Date Recorded Internet Access Q1 Yes 03/19/2024 Internet Access Q2 Not on file 03/19/2024 Comments Unknown Sex and Gender Information Value [...] Description 04/21/2025 12:45 PM EST Office Visit [facility] ADULT DENTAL [address] [place] [address] [place], [address] [place] [address] documented as of this encounter Procedures Procedure Name Priority Date/Time Associated Diagnosis Comments LDCT LUNG SCREENING Routine 02/28/2025 1 0:39 AM EDT documented in this encounter Results * CT Lung Screening Low dose (02/28/2025 10:39 AM EDT) Anatomical Region Laterality Modality Lung Computed Tomogra phy 02/28/2025 10:3 9 AM EDT Narrative 02/28/2025 11:12 AM EDT [address] [address] [address] Scan Report Signed Patient: Marie Cobos MR#: [id number] : 1975 Acct:[id number] Age/Sex: 49 / F ADM Date: 02/28/25 Loc: HO.CT Attending Dr: Brandy Greenberg PA-C Ordering Physician: Brandy Greenberg PA-C Date of Service: 02/28/25 Procedure(s): CT lung screening Accession Number(s): [id number] cc: Henry Harvey MD; Brandy Greenberg PA-C Report Number: [id number]: Total DLP = 64.00 mGy-cm Reason for Exam: F17.210 - Nicotine dependence, cigarettes, uncomplicated EXAMINATION: CT LOW-DOSE SCREENING CHEST WITHOUT CONTRAST CLINICAL INFORMATION: 49-year-old female, current smoker, 33 pack years, lung cancer screening. COMPARISON: None available. TECHNIQUE: Multidetector volumetric CT imaging of the chest is performed on a Siemens SOMATOM Definition scanner without contrast using low dose technique. Additional 2D coronal and sagittal reformatted images and axial 3D maximum intensity projection (MIP) images are generated on the CT workstation. This CT examination was performed using dose optimization techniques as appropriate, variously including the following: *Automated exposure control *Adjustment of mA and/or kV according to patient size (this includes techniques or standardized protocols for targeted exams where dose is matched to indication/reason for exam; i.e. extremities or head) *Use of iterative reconstruction technique FINDINGS: PULMONARY NODULES: 3 mm nodule in the right major fissure, consistent with intrapulmonary lymph node (series 5, image 58). 3 mm nodule in the right major fissure, consistent with intrapulmonary lymph node (series 5, image 73). No suspicious pulmonary nodules present. LUNGS: Lungs are well expanded and clear bilaterally. There is mild emphysema. No abnormal consolidative opacities or interstitial opacities evident. Minimal thickening of the small airways in keeping with mild chronic bronchitis. No bronchiectasis. There is no effusion or pneumothorax. MEDIASTINUM: Normal thyroid. No mediastinal mass or lymphadenopathy present. Aorta is normal in caliber and course. Main pulmonary artery is normal in caliber. Heart size is normal. There is no pericardial effusion. Moderate aortic valvular calcifications are present. This could indicate aortic stenosis or bicuspid valve. Esophagus is normal. CORONARY ARTERY CALCIFICATION: Mild. CHEST WALL/AXILLA: No abnormal masses or lymph nodes present. UPPER ABDOMEN: Mild fatty infiltration of the liver present. Remainder of the imaged upper abdominal structures appear normal. OSSEOUS STRUCTURES: No suspicious lytic or blastic bone lesions. Mild degenerative changes of the spine. CT/CT lung screening IMPRESSION: 1. No suspicious pulmonary nodules. 2. Mild emphysema. No active pulmonary disease. 3. Mild small airway thickening consistent with mild chronic bronchitis. 4. Aortic valvular calcifications. This could indicate aortic stenosis or bicuspid valve. 5. Diffuse fatty infiltration of the liver. ASSESSMENT: 1. Lung-RADS Category 1: Negative. There are no nodules or there are definitely benign nodules. 2. Lung-RADS Category S: None. RECOMMENDATION: Continued routine annual low-dose CT lung screening in 1 year is recommended. An order for CT CHEST LOW DOSE CANCER SCREENING ([id number]) can be placed. Electronically signed by: Jerson Salvador MD 02/28/2025 11:09 AM EDT Dictated By: Jerson Salvador MD Signed By: <Electronically signed by Jerson Salvador MD in OV> 02/28/25 1109 DD/ 1039 TD/TT: 02/28/25 1054 Gum Worker: Procedure Note Donotuseinterpreter, Image - 02/28/[address] [place] [address] [address] Scan Report Signed Patient: Marie Cobos AMR#: M [id number] : 1975Acct:[id number] Age/Sex: 49 / FADM Date: 02/28/25 Loc: HO.CT Attending Dr: Brandy Greenberg PA-C Ordering Physician: Brandy Greenberg PA-C Date of Service: 02/28/25 Procedure(s): CT lung screening Accession Number(s): [id number] cc: Henry Harvey MD; Brandy Greenberg PA-C Report Number: [id number]: Total DLP = 64.00 mGy-cm Reason for Exam: F17.210 - Nicotine dependence, cigarettes, uncomplicated EXAMINATION: CT LOW-DOSE SCREENING CHEST WITHOUT CONTRAST CLINICAL INFORMATION: 49-year-old female, current smoker, 33 pack years, lung cancer screening. COMPARISON: None available. TECHNIQUE: Multidetector volumetric CT imaging of the chest is performed on a Siemens SOMATOM Definition scanner without contrast using low dose technique. Additional 2D coronal and sagittal reformatted images and axial 3D maximum intensity projection (MIP) images are generated on the CT workstation. This CT examination was performed using dose optimization techniques as appropriate, variously including the following: *Automated exposure control *Adjustment of mA and/or kV according to patient size (this includes techniques or standardized protocols for targeted exams where dose is matched to indication/reason for exam; i.e. extremities or head) *Use of iterative reconstruction technique FINDINGS: PULMONARY NODULES: 3 mm nodule in the right major fissure, consistent with intrapulmonary lymph node (series 5, image 58). 3 mm nodule in the right major fissure, consistent with intrapulmonary lymph node (series 5, image 73). No suspicious pulmonary nodules present. LUNGS: Lungs are well expanded and clear bilaterally. There is mild emphysema. No abnormal consolidative opacities or interstitial opacities evident. Minimal thickening of the small airways in keeping with mild chronic bronchitis. No bronchiectasis. There is no effusion or pneumothorax. MEDIASTINUM: Normal thyroid. No mediastinal mass or lymphadenopathy present. Aorta is normal in caliber and course. Main pulmonary artery is normal in caliber. Heart size is normal. There is no pericardial effusion. Moderate aortic valvular calcifications are present. This could indicate aortic stenosis or bicuspid valve. Esophagus is normal. CORONARY ARTERY CALCIFICATION: Mild. CHEST WALL/AXILLA: No abnormal masses or lymph nodes present. UPPER ABDOMEN: Mild fatty infiltration of the liver present. Remainder of the imaged upper abdominal structures appear normal. OSSEOUS STRUCTURES: No suspicious lytic or blastic bone lesions. Mild degenerative changes of the spine. CT/CT lung screening IMPRESSION: 1. No suspicious pulmonary nodules. 2. Mild emphysema. No active pulmonary disease. 3. Mild small airway thickening consistent with mild chronic bronchitis. 4. Aortic valvular calcifications. This could indicate aortic stenosis or bicuspid valve. 5. Diffuse fatty infiltration of the liver. ASSESSMENT: 1. Lung-RADS Category 1: Negative. There are no nodules or there are definitely benign nodules. 2. Lung-RADS Category S: None. RECOMMENDATION: Continued routine annual low-dose CT lung screening in 1 year is recommended. An order for CT CHEST LOW DOSE CANCER SCREENING ([id number]) can be placed. Electronically signed by: Jerson Salvador MD 02/28/2025 11:09 AM EDT Dictated By: Jerson Salvador MD Signed By: <Electronically signed by Jerson Salvador MD in OV> 02/28/25 1109 DD/ 1039 TD/TT: 02/28/25 1054 Gum Worker: [facility] External Provider IMG CT PROCEDURES Final Result documented in this encounter Visit Diagnoses Not on filedocumented in this encounter Additional Health Concerns Assessment Noted Time PHQ-9 Depression Total Score: 0 07/25/19 25 1:13 PM EST documented as of this encounter Care Teams Meteorologist Liaison Relationship Specialty Start Date End Date Henry Harvey MD [address] [place] [address] PCP - General Internal Medicine 10/27/19 documented as of this encounter
--- OUTSIDE RECORDS SUMMARY | 2025-02-28 11:19 | XMS_ITS | Encounter Summary ---
Author Organization [employer] Address [address] [facility] [address] [place] [address] Care Team Providers Care Shop Cooper Name Role Phone Henry Harvey MD Primary Care Prov ider Reason for Visit * Reason Onset Date Comments Prior Authorization 03/25/2024 Encounter Details Date Type Department Care Team ([facility] Contact Info) Description 03/25/2024 Telephone [facility] MEDICINE [address] [place] [address] Henry Harvey MD [address] [place] [address] Prior Authorization Social History Tobacco Use Types Packs/Day Years Used Date Smoking Tobacco: Former Cigarettes 1 Smokeless Tobacco: Never Alcohol Use Standard Drinks/Week Comments Yes 0 (1 standard drink = 0.6 oz pur e alcohol) Depression Answer Date Recorded Patient Health Questionnaire-9 Score 0 11/23/2022 Housing Stability Answer Date Recorded What is your housing situation today? I have conrad concepcion 03/19/[address] you [...] Date Recorded Patient Health Questionnaire-2 Score 0 11/23/2022 Internet Access Answer Date Recorded Internet Access Q1 Yes 03/19/2024 Internet Access Q2 Not on file 03/19/2024 Comments Unknown Sex and Gender Information Value Date Recorded Sex Assigned at Female 03/28/2022 10:26 AM EDT Legal Sex Female 10:26 AM EDT Gender Identity Female 03/28/2022 10:26 AM EDT Sexual Orientation Straight 03/28/2022 10 :26 AM EDT documented as of this encounter Miscellaneous Notes * Telephone Encounter - Mireya Crowder - 03/25/2024 4:20 PM EDT TC from pt requesting medication refill. Medications needing refill : Dulaglutide (Trulicity) 0.75 MG/0.5ML solution auto-injector To be sent to: [facility]/pharmacy #[id number] documented in this encounter Plan of Treatment Upcoming Encounters Date Type Department Care Team (Late st Contact Info) Description 04/21/2025 12:45 PM EST Office Visit [facility] ADULT DENTAL [address] [place] [address] [place], [address] [place] [address] documented as of this encounter Visit Diagnoses Not on filedocumented in this encounter Additional Health Concerns Assessment Noted Time PHQ-9 Depression Total Score: 0 11/24/19 23 2:12 PM EDT documented as of this encounter Care Teams Shop Cooper Relationship Specialty Start Date End Date Henry Harvey MD [address] [place] [address] PCP - General Internal Medicine 10/27/19 documented as of this encounter
--- OUTSIDE RECORDS SUMMARY | 2025-02-28 11:19 | XMS_ITS | Encounter Summary ---
Author Organization [employer] Address [address] [place] [address] Care Team Providers Care Urban Design Consultant Name Role Phone Henry Harvey MD Primary Care Prov ider Reason for Visit * Reason Comments Med Refill Encounter Details Date Type Department Care Team ([facility] Contact Info) Description 01/13/2024 Refill [facility] [address] [place] [address] Henry Harvey MD [address] [place] [address] Primary hypertension Social History Tobacco Use Types Packs/Day Years Used Date Smoking Tobacco: Former Cigarettes 1 28 Smokeless Tobacco: Never Alcohol Use Standard Drinks/Week Comments Yes 0 (1 standard drink = 0.6 oz pur e alcohol) Depression Answer Date Recorded Patient Health Questionnaire-9 Score 0 11/23/2022 Housing Stability Answer Date Recorded What is your housing situation today? I have conrad concepcion 03/13/[address] you li ve. Do you have problems with any of the following? None of the above 03/13/2023 Food Insecurity Answer Date Recorded Within the past 12 months, y ou worried that your food would run out before you got money to buy more: Never True 03/13/2023 Within the past 12 months,th e food you bought just didn't last and you didn't have enough money to get more: Never True Transportation Answer Date Recorded In the past 12 months, has l ack of transportation kept you from medical appts, meetings, work or from getting things needed for daily living? No 03/13/2023 Utilities Answer Date Recorded In the past 12 months, has t he electric, gas, oil or water company threatened to shut off services in your home? No 03/13/2023 Depression Answer Date Recorded Patient Health Questionnaire-2 Score 0 11/23/2022 Comments Unknown Sex and Gender Information Value [...] Description 04/21/2025 12:45 PM EST Office Visit [facility] [address] [place] [address] [place], [place] [address] [place] [address] documented as of this encounter Visit Diagnoses Diagnosis Primary hypertension Unspecified essential hypertension documented in this encounter Additional Health Concerns Assessment Noted Time PHQ-9 Depression Total Score: 0 11/24/19 23 2:12 PM EDT documented as of this encounter Care Teams Urban Design Consultant Relationship Specialty Start Date End Date Henry Harvey MD [address] [place] [id number] PCP - General Internal Medicine 10/27/19 documented as of this encounter
--- OUTSIDE RECORDS SUMMARY | 2025-02-28 11:19 | XMS_ITS | Clinical Summary ---
Author Organization [employer] Address [address] [place] [address] 7[address] [place] [address] Care Team Providers Care Electronic Technician Name Role Phone Henry Harvey MD Primary Care Prov ider Allergies No known active allergies Medications fluticasone (Flonase) 50 MCG/ACT nasal sprayIndications: Seasonal allergies USE 1 SPRAY IN EACH NOSTRIL IN THE MORNING. SHAKE GENTLY. BEFORE FIRST USE, PRIME PUMP. AFTER USE, CLEAN TIP AND REPLACE CAP. 32 mL 1 08/20/19 23 Active gabapentin (Neurontin) 800 MG tablet TOME ANIL TABLETA LUISA VECES AL DRU 90 tablet 7 10/04/19 24 Active Mirabegron ER (Myrbetriq) 8 MG/ML Suspension Reconstituted ER Take 50 mg by mouth Once per day. Active insulin pen needle 30G x 5 mm misc Use as instructed 100 each 12 03/19/20 24 2024 Active Blood Glucose Monitoring Suppl (FreeStyle Lite) w/Device kit 1 kit Once per day. 1 kit 04/18/20 24 Active FREESTYLE LITE test strip For glucose monitoring, check daily 100 each 12 04/18/20 24 2024 Active Calcium Carb-Cholecalcife rol 600-10 MG-MCG tabletIndications :Osteopenia of lumbar spine Take 1 tablet by mouth Once daily. 90 tablet 3 05/03/20 24 Active losartan-hydroCHL OROthiazide (Hyzaar) 100-25 MG tabletIndications :Primary hypertension Take 1 tablet by mouth Once per day. 90 tablet 3 07/25/19 25 2025 Active Acetaminophen Extra Strength 500 MG tablet TAKE 2 TABLETS BY MOUTH EVERY 8 HOURS IF NEEDED FOR MILD PAIN 120 tablet 07/26/19 25 Active Dulaglutide (Trulicity) 3 MG/0.5ML solution auto-injector Inject 3 mg under the skin 1 (one) time per week. 2 mL 3 10/18/19 25 2025 Active amLODIPine (Norvasc) 5 MG tabletIndications :Primary hypertension Take 1 tablet (5 mg) by mouth in the morning. 90 tablet 1 11/13/19 25 Active atorvastatin (Lipitor) 80 MG tabletIndications :Mixed hyperlipidemia Take 1 tablet (80 mg) by mouth Once per day. 90 tablet 3 11/13/19 25 2025 Active cetirizine (ZyrTEC) 10 MG tabletIndications :Chronic rhinitis Take 1 tablet (10 mg) by mouth in the morning. 90 tablet 1 11/13/19 25 Active aspirin (Aspirin Low Dose) 81 MG EC tablet Take 1 tablet (81 mg) by mouth Once per day. 90 tablet 3 11/13/19 25 2025 Active Dulaglutide (Trulicity) 4.5 MG/0.5ML solution auto-injector Inject 4.5 mg under the skin 1 (one) time per week. 2 mL 3 01/14/20 25 Active topiramate (Topamax) 50 MG tablet Take 1 tablet (50 mg) by mouth Once per day. 90 tablet 1 01/14/20 25 Active naproxen (Naprosyn) 500 MG tablet TAKE 1 TABLET BY MOUTH TWICE A DAY IF NEEDED FOR MILD PAIN 60 tablet 02/19/20 25 Active fluconazole (Diflucan) 150 MG tablet Take 1 tablet (150 mg) by mouth 1 (one) time per week. 12 tablet 1 08/20/19 25 2024 naproxen (Naprosyn) 500 MG tablet TAKE 1 TABLET BY MOUTH TWICE A DAY IF NEEDED FOR MILD PAIN 60 tablet 08/27/19 25 2024 Discontinued Active Problems Problem Noted Date Diagnosed Date Mixed hyperlipidemia 11/12/2024 Assessment & Plan (11/12/2024 2:36 PM EDT): On atorvastatin 80mg, continue low cholesterol diet, exercise as tolerated, pending new labs for guidance of therapy Staining of tooth 10/08/2024 Yeast infection 03/19/2024 Assessment & Plan (03/19/2024 7:04 PM EDT): Will order fluconazole, reviewed lifestyle modifications Advanced periodontitis 03/14/2024 Dental calculus 03/14/2024 Staining of teeth 03/14/2024 Acute gingival inflammation 03/14/2024 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 Type 2 diabetes mellitus wit h diabetic polyneuropathy, without long-term current use of insulin 11/23/2022 Assessment & Plan (10/29/2024 3:16 PM EDT): Uncontrolled, will increase trulicity to 3mg, continue with rest of treatment, encouraged to keep, low carb no sugar diet, follow up in 6 weeks Assessment & Plan (04/18/2024 1:53 PM EST): Will increase trulicity, stop metformin, continue jardiance, continue low carb/no sugar diet, follow up in 3 months Assessment & Plan (03/19/2024 7:03 PM EDT): Will add trulicity for better glucose control, weight loss and cardiovascular benefit Assessment & Plan (07/19/2023 2:19 PM EST): Refers morning results ranges in the 110's, during the day 140-150's, she is on metformin/glipizide and jardiance, will order new labs for guidance of therapy Eye exam booked for jul 24 at [place] Assessment & Plan (04/27/2023 12:15 PM EST): On triple oral therapy, will order new A1c for guidance of therapy, she refers ranges from 80's to 140's Eye exam due in june Assessment & Plan (02/06/2023 3:43 PM EDT): Controlled, a1c today was 7.0%. No changes will be made, reinforced importance of tight glucose control Assessment & Plan (11/23/2022 2:53 PM EDT): On metformin/jardiance and glipizide, today was 130 ranges from 90-145, new labs will be ordered for guidance of therapy Eye exam done, pending ophtalmology evaluation for eyelid surgery Callus of foot 11/23/2022 Assessment & Plan (11/23/2022 2:54 PM EDT): Will refer to podiatry for left foot callus Encounter for screening mamm ogram for malignant neoplasm of breast 11/23/2022 Assessment & Plan (11/23/2022 2:55 PM EDT): Will order a mammogram Screening for colon cancer 11/23/2022 Assessment & Plan (07/19/2023 2:20 PM EST): Patient has cologuard kit at home Assessment & Plan (11/23/2022 2:56 PM EDT): Patient refused colonoscopy, risk were discussed, will send cologuard which she agrees Diabetic polyneuropathy 03/21/2018 Gastroesophageal reflux disease without esophagi tis 02/28/2018 Hyperlipidemia associated with type 2 diabetes m gomez 02/28/2018 Assessment & Plan (11/12/2024 2:34 PM EDT): On trulicity 3.0, told to decrease carbs and eliminate sugar, pending blood work, will follow up in 3 months Assessment & Plan (10/29/2024 3:24 PM EDT): Will order blood test for guidance of therapy, encouraged to keep a healthy diet, exercise, avoid fried/fast food, Assessment & Plan (11/23/2022 2:52 PM EDT): On atorvastatin 40mg, will order new labs for guidance of therapy Hypertension 02/28/2018 Assessment & Plan (04/18/2024 1:54 PM EST): Controlled, keep low sodium diet and exercise as tolerated, keep bp log, follow up in 3 months Assessment & Plan (03/19/2024 7:02 PM EDT): Slightly elevated today, but refers has remained stable at home, will leave current therapy, continue low sodium diet and exercise as tolerated Assessment & Plan (01/13/2024 10:25 PM EDT): Patient not monitoring her blood pressure, encouraged to keep low soium diet, loose weight, exercise as tolerated Assessment & Plan (07/19/2023 2:20 PM EST): Controlled, on amlodipine 5mg, losartan/hydrochlorothiazide 100/25, no changes will be made, keep bp log, target <130/80 Assessment & Plan (04/27/2023 12:16 PM EST): Controlled with increased losartan, reinforced low sodium diet and exercise as tolerated, follow up in 3 months Assessment & Plan (02/06/2023 3:42 PM EDT): Controlled, reinforced low sodium diet and exercise as tolerated Assessment & Plan (11/23/2022 2:51 PM EDT): Controlled, last results as /82-120/79-127/80, on losartan/hctz 100/25 and amlodipine 5mg, reinforced low sodium diet and exercise as tolerated, she refers has been losing weight. Migraine 02/28/2018 Mood disorder 02/28/2018 Back pain 08/01/2014 Hepatic steatosis 06/04/2014 Encounters Date Type Department Care Team Description 02/28/2025 Orders Only [facility] External Provider, [facility] 02/15/2025 Refill [facility] [address] [place] [address] Henry Harvey MD 01/14/2025 Telephone [facility] [address] [place] [address] Henry Harvey MD Medication Question 01/13/2025 1:30 PM EDT Telemedicine [facility] [address] [place] [address] Henry Harvey MD Screening for colon cancer (Primary Dx); Encounter for screening mammogram for malignant neoplasm of breast 01/13/2025 Travel 01/10/2025 Telephone [facility] [address] [place] [address] Henry Harvey MD chart prep from Last 3 Months Social History Tobacco Use Types Packs/Day Years Used Date Smoking Tobacco: Every Day Cigarettes 1 28 Smokeless Tobacco: Never Tobacco Cessation:Ready to Q uit: Not Asked; Counseling Given: Not Answered Alcohol Use Standard Drinks/Week Comments Yes 0 [...] Orientation Straight 03/28/2022 10 :26 AM EDT Last Filed Vital Signs Vital Sign Reading Time Taken Comments Blood Pressure 122/78 01/13/2025 1:51 PM EDT Pulse 84 03/19/2024 2:44 PM EDT Temperature 36.7 C (98.1 F) 03/19/2024 2:44 PM EDT Respiratory Rate 20 03/19/2024 2:44 PM EDT Oxygen Saturation - - Inhaled Oxygen Concentration - - Weight 93 kg (205 lb) 03/19/2024 2:44 PM EDT Height 160 cm (5' 3 ) 03/19/2024 2:44 PM EDT Body Mass Index 36.31 03/19/2024 2:44 PM EDT Plan of Treatment Upcoming Encounters Date Type Department Care Team (Late st Contact Info) Description 04/21/2025 12:45 PM EST Office Visit [facility] [address] [place] [address] [place], [place] [address] [place] [address] Health Maintenance Due Date Last Done Comments CT Colonography 1975 Colonoscopy 1974 Colorectal Cancer Screening 1974 FIT DNA/Cologuard 1974 FIT 1974 FOBT 1975 HIV Screening 1975 Sigmoidoscopy 1974 Disability Screening 1974 Diabetes: Foot Exam 1984 Family Planning (PISQ) 1989 Pneumococcal Vaccine: 50+ Years (1 of 2 - PCV) 1993 Diabetes: Urine Protein Screening 02/07/2024 02/06/2023, 09/18/2020 Lung Cancer Screening 2024 02/28/2025 Zoster Vaccines (1 of 2) 2024 Eye Exam 07/25/2024 Dental Oral Exam 09/13/2024 03/14/2024, , 02/01/2018, Additional history exists Diabetes: Hemoglobin A1C 09/13/2024 024, 02/06/2023, 01/07/2022, Additional history exists Mammogram 01/06/2025 01/06/2023, 03/0 09/2019, 08/01/2019, Additional history exists COVID-19 Vaccine ( season) 2025 01/06/2021, 12/16/2020 Influenza Vaccine (#1) 2025 9, 02/28/2018, 02/28/2017, Additional history exists Dental X-Ray: Bitewings 03/15/2025 03/14/20 24, 02/14/2019, 02/01/2018, Additional history exists Lipid Panel 03/15/2025 03/15/2024, 01/27, 03/09/2021, Additional history exists Dental Prophylaxis 04/11/2025 10/08/2024, 1 07/24/2023, 02/14/2019, Additional history exists Alcohol/Substance Use Screening 07/25/2025 07/25/2024 Depression Screening 07/25/2025 07/25/2024, 07/25/19 25 SDOH Screening 07/25/2025 07/25/2024 Tobacco Screening 10/08/2025 10/08/2024 Cervical Cancer Screening 12/15/2026 DTaP/Tdap/Td Vaccines (3 - Td or Tdap) 12/15/2026 12/15/2016, 05/02/2014 HPV/Cotest 12/15/2026 12/15/2021, 11/27, 04/06/2021 Pap Smear 12/15/2026 12/15/2021, 04/06/2021 Dental X-Ray: Full Mouth 03/15/2027 024, 02/14/2019, 03/19/2014 RSV Patients and Patients Aged 60 years or older (1 - 1-dose 75+ series) 2049 Hepatitis A Vaccines Completed 01/21/2016, 02/14/20 15 Hepatitis B Vaccines Completed 02/22/2019, 09/11/2018, 01/21/2016 Hepatitis C Screening Completed 02/06/2023 HIB Vaccines Aged Out No longer eligi ble based on patient's age to complete this topic HPV Vaccines Aged Out No longer eligi ble based on patient's age to complete this topic IPV Vaccines Aged Out No longer eligi ble based on patient's age to complete this topic Meningococcal B Vaccine Aged Out No l onger eligible based on patient's age to complete this topic Meningococcal Vaccine Aged Out No kari rosa eligible based on patient's age to complete this topic RSV under 20 months Aged Out No longe r eligible based on patient's age to complete this topic Rotavirus Vaccines Aged Out No longer eligible based on patient's age to complete this topic Procedures Procedure Name Priority Date/Time Associated Diagnosis Comments LDCT LUNG SCREENING Routine 02/28/2025 1 0:39 AM EDT PROPHYLAXIS - ADULT Routine 10/08/2024 2 :00 PM EDT Staining of tooth Dental calculus Advanced periodontitis HEMOGLOBIN A1C Routine 03/15/2024 11:30 AM EDT Type 2 diabetes mellitus with diabetic polyneuropathy, without long-term current use of insulin ([facility]) LIPID PANEL, STANDARD Routine 03/15/2024 11:30 AM EDT Type 2 diabetes mellitus with diabetic polyneuropathy, without long-term current use of insulin ([facility]/HCC) INTRAORAL - COMPLETE SERIES OF RADIOGRAPHIC IMAGES Routine 03/14/2024 1:00 PM EDT Advanced periodontitis Dental calculus Staining of teeth Acute gingival inflammation PERIODIC ORAL EVALUATION - ESTABLISHED PATIENT Routine 03/14/2024 1:00 PM EDT ALBUMIN, RANDOM URINE W/CREATININE Routine 02/06/2023 4:00 PM EDT HEPATITIS C AB W/REFL TO HCV RNA, QN, PCR Routine 02/06/2023 3:56 PM EDT Type 2 diabetes mellitus with diabetic polyneuropathy, without long-term current use of insulin (CMS/HCC) BI MAMMOGRAM SCREENING TOMOSYNTHESIS BILATERAL Routine 01/06/2023 11:30 AM EDT ZZZ HISTORICAL HPV E6/E7 RFLX LG 16 18/45 Routine 12/15/2021 1:36 PM EDT HM PAP/HPV Routine 12/15/2021 from Last 3 Months or Most Recently Relevant to Health Maintenance Results * CT Lung Screening Low dose (02/28/2025 10:39 AM EDT) Anatomical Region Laterality Modality Lung Computed Tomogra phy 02/28/2025 10:3 9 AM EDT Narrative 02/28/2025 11:12 AM EDT [place] [address] [address] Scan Report Signed Patient: Marie Cobos MR#: [id number] : 1975 Acct:[id number] Age/Sex: 49 / F ADM Date: 02/28/25 Loc: HO.CT Attending Dr: Brandy Greenberg PA-C Ordering Physician: Brandy Greenberg PA-C Date of Service: 02/28/25 Procedure(s): CT lung screening Accession Number(s): [id number] cc: Henry Harvey MD; Brandy Greenberg PA-C Report Number: [id number]: Total DLP = 64.00 mGy-cm Reason for [...] for CT CHEST LOW DOSE CANCER SCREENING ([id number]) can be placed. Electronically signed by: Jerson Salvador MD 02/28/2025 11:09 AM EDT Dictated By: Jerson Salvador MD Signed By: <Electronically signed by Jerson Salvador MD in OV> 02/28/25 1109 DD/ 1039 TD/TT: 02/28/25 1054 Cell Biologist: Procedure Note Donyasirinterpreter, Image - 02/28/[address] [address] [address] Scan Report Signed Patient: Marie Cobos AMR#: [id number] : 1975Acct:[id number] Age/Sex: 49 / FADM Date: 02/28/25 Loc: HO.CT Attending Dr: Brandy Greenberg PA-C Ordering Physician: Brandy Greenberg PA-C Date of Service: 02/28/25 Procedure(s): CT lung screening Accession Number(s): [id number] cc: Henry Harvey MD; Brandy Greenberg PA-C Report Number: [id number]: Total DLP = 64.00 mGy-cm Reason for [...] for CT CHEST LOW DOSE CANCER SCREENING ([id number]) can be placed. Electronically signed by: Jerson Salvador MD 02/28/2025 11:09 AM EDT Dictated By: Jerson Salvador MD Signed By: <Electronically signed by Jerson Salvador MD in OV> 02/28/25 1109 DD/ 1039 TD/TT: 02/28/25 1054 Cell Biologist: us [facility] External Provider IMG CT PROCEDURES Final Result * (ABNORMAL) Hemoglobin A1c (03/15/2024 11:30 AM EDT) Hemoglobin A1c 6.7(H) <6.0 % [facility] Comment:Hemoglobin A1C Refer ence Range Adults: 4.8 - 6.0 % Non diabetic: < 6.0 % Goal: < 7.0 %Additional Action Suggested: > 8.0 %Note: Hemoglobin A1c results are invalid for patients with abnormal amounts of HbF. Blood transfusions may impact the HbA1c concentration in the patient sample. Estimated Average Glucose 146 mg/dL [facility] Comment:eAG = Estimated ave rage glucose which is %A1C expressed asaverage glucose, using the formula of the M0H-NnvrqrlEydgyfz Glucose study (ADAG), Diabetes Care, Vol.31,#8,Dec. 2007 Blood Venous blood specimen / Unknown 03/15/2024 11:30 AM EDT 03/15/2024 1:15 PM EDT us Henry Fajardo MD LAB BLOOD ORDERABL ES Final Result Performing Organization Address [facility] Co de Phone Number [facility] [address] [place] [address] [phone] * (ABNORMAL) Lipid Panel, Standard (03/15/2024 11:30 AM EDT) Triglycerides 83 <150 mg/dL [facility] Comment:Desirable Triglyceri de: less than 150 mg/dLBorderline High Triglyceride 150-199 mg/dLHigh Triglyceride: 200-499 mg/dLVery High Triglyceride: greater than or equal to 5OO mg/dL Cholesterol 135 <200 mg/dL [facility] Comment:Desirable Cholestero l: less than 200 mg/dLBorderline High Cholesterol: 200-239 mg/dLHigh Cholesterol: greater than 239 mg/dL LDL Cholesterol Calculated 88 <100 mg/dL [facility] Comment:Desirable LDL: less than 100 mg/dLNear Optimal/Above Optimal LDL: 110- 129 mg/dLBorderline High LDL: 130-159 mg/dLHigh LDL: 160-189 mg/dLVery High LDL: greater than or equal to 190 mg/dL HDL Cholesterol 31(L) >40 mg/dL [facility] Comment:Desirable HDL: great er than 40 mg/dL Note: This HDL assay may give artificially low results in patients with liver disease. Blood Venous blood specimen / Unknown 03/15/2024 11:30 AM EDT 03/15/2024 1:15 PM EDT us Henry Fajardo MD LAB BLOOD ORDERABL ES Final Result Performing Organization Address City/[facility]/ZIP Co de Phone Number [facility] [address] [place] [address] [phone] * Albumin, Random Urine W/Creatinine (02/06/2023 4:00 PM EDT) Creatinine, Urine 41.44 mg/dL [facility] Microalbumin Urine <5.0 mg/L [facility] Microalbum Creatinine Ratio Ur TNP <30 ug/mg cr [facility] Comment:Unable to calculate albumin/creatinine ratio due to lowmicroalbumin or creatinine result. 02/06/2023 4:00 PM EDT 02/06/2023 6:38 PM EDT Henry Fajardo MD LAB URINE ORDERABL ES Final Result Performing Organization Address [facility] Co de Phone Number [facility] [address] [place] [address] [phone] * Hepatitis C Antibody with Reflex to HCV, RNA, Quantitative, Real-Time PCR (02/06/2023 3:56 PM EDT) Hepatitis C Antibody Nonreactive Nonreactive [facility] Comment:Antibodies to HCV no t detected; does not exclude early acuteHCV infection. Blood Venous blood specimen / Unknown 02/06/2023 3:56 PM EDT 02/06/2023 5:49 PM EDT Henry Fajardo MD LAB BLOOD ORDERABL ES Final Result Performing Organization Address [facility] Co de Phone Number [facility] [address] [place] [address] [phone] * BI Mammogram Screening Tomosynthesis Bilateral (01/06/2023 11:30 AM EDT) Anatomical Region Laterality Modality Breast Bilateral Mammography 01/06/2023 11:3 0 AM EDT Narrative 01/09/2023 12:13 PM EDT [address] [place] [address] Mammography Report Signed Patient: Marie Cobos MR#: [id number] : 1975 Acct:[id number] Age/Sex: 47 / F ADM Date: 01/06/23 Loc: HO.MAMMO Attending Dr: Henyr Fajardo MD Ordering Physician: Henry Harvey MD Res ults: Date of Service: 01/06/23 Follow Up: Procedure(s): MM tomosynthesis screening BI Accession Number(s): [id number] cc: Henry Harvey MD EXAMINATION: MM SCREENING DIGITAL BREAST TOMOSYNTHESIS, BILATERAL CLINICAL INFORMATION: Screening. Asymptomatic. COMPARISON: Mammography: This study is compared with prior exams dating back to 2017. TECHNIQUE: Digital breast tomosynthesis is performed in both the craniocaudal and mediolateral oblique views along with computer-aided detection (CAD). Synthesized 2D images are generated from the tomosynthesis. FINDINGS: There are scattered areas of fibroglandular density (ACR BI-RADS breast composition Category b). There are no significant masses, abnormal calcifications, or other abnormalities. MM/MM tomosynthesis screening BI IMPRESSION: No mammographic evidence of malignancy. ASSESSMENT: BI-RADS BI-RADS 1 - Negative RECOMMENDATION: Routine annual mammography screening. 1 year F/U This examination should not preclude the clinical evaluation of a suspicious palpable abnormality. This patient's information was entered into a reminder system with a target due date for their next mammogram. Dictated By: Delmy Woods MD Signed By: <Electronically signed by Delmy Woods MD in OV> 01/09/23 1210 DD/ 1130 TD/TT: Cell Biologist: Procedure Note Donotuseinterpreter, Image - 01/09/[address] [place] [address] Mammography Report Signed Patient: Marie Cobos AMR#: [id number] : 1975Acct:[id number] Age/Sex: 47 / FADM Date: 01/06/23 Loc: HO.MAMMO Attending Dr: Henry Fajardo MD Ordering Physician: Henry Harvey ults: Date of Service: 01/06/23Follow Up: Procedure(s): MM tomosynthesis screening BI Accession Number(s): [id number] cc: Henry Harvey MD EXAMINATION: MM SCREENING DIGITAL BREAST TOMOSYNTHESIS, BILATERAL CLINICAL INFORMATION: Screening. Asymptomatic. COMPARISON: Mammography: This study is compared with prior exams dating back to 2017. TECHNIQUE: Digital breast tomosynthesis is performed in both the craniocaudal and mediolateral oblique views along with computer-aided detection (CAD). Synthesized 2D images are generated from the tomosynthesis. FINDINGS: There are scattered areas of fibroglandular density (ACR BI-RADS breast composition Category b). There are no significant masses, abnormal calcifications, or other abnormalities. MM/MM tomosynthesis screening BI IMPRESSION: No mammographic evidence of malignancy. ASSESSMENT: BI-RADS BI-RADS 1 - Negative RECOMMENDATION: Routine annual mammography screening. 1 year F/U This examination should not preclude the clinical evaluation of a suspicious palpable abnormality. This patient's information was entered into a reminder system with a target due date for their next mammogram. Dictated By: Delmy Woods MD Signed By: <Electronically signed by Delmy Woods MD in OV> 01/09/23 1210 DD/ 1130 TD/TT: Cell Biologist: Henry Fajardo MD IMG BI PROCEDURES Final Result * HPV E6/E7 RFLX LG 16 18/45 (12/15/2021 1:36 PM EDT) HPV 16 RNA [facility] HPV 18/45 RNA [facility] HPV E6 E7 ADD TNP [facility] HPV mRNA E6/E7 rflx Not Detected Not Detected [facility] Comment: Methodology: Video Coordinator-Mediated Amplification This assay detects E6/E7 viral messenger RNA (mRNA) from 14 high-risk HPV types (16,18,31,33,35,39,45,51,52,56,58,59,66,68). Cervical sources are required for HPV testing. If a vaginal source from a patient who has had a total hysterectomy with removal of cervix was submitted, please contact the testing laboratory for alternative testing options. For additional information, please refer to http://education.Automile/faq/DXX410k2 (This link if provided for information/ educational purposes only.) THIS TEST WAS PERFORMED AT: [facility] [address] [place] [address] [address] [address] LAMINE PIMENTEL MD 12/15/2021 1:36 PM EDT Mina Alcantar MD HISTORICAL/NON ORDERABLE LABS Fi nal Result [facility] [address] * Hm Pap Smear (12/15/2021) Lina Provider HEALTH MAINTENANCE Final Result from Last 3 Months or Most Recently Relevant to Health Maintenance Insurance [facility] C3 DENTAL-[facility] MEDICAID STAND ADULT Care Teams Electronic Technician Relationship Specialty Start Date End Date Henry Harvey MD [address] [place] [phone] PCP - General Internal Medicine 10/27/19
--- OUTSIDE RECORDS SUMMARY | 2025-02-28 11:20 | XMS_ITS | Encounter Summary ---
Author Organization [employer] Address [address] [facility] 7 [place] [address] Care Team Providers Care Front Desk Admin Name Role Phone Henry Harvey MD Primary Care Prov ider Encounter Details Date Type Department Care Team ([facility] Contact Info) Description 08/19/2024 Orders Only [facility] CHC MED & PEDS [address] [place] [address] Henry Harvey MD [address] [place] [address] Social History Tobacco Use Types Packs/Day Years [...] Description 04/21/2025 12:45 PM EST Office Visit [facility] ADULT DENTAL [address] [place] [address] [place], Ally [address] [place] [address] documented as of this encounter Visit Diagnoses Not on filedocumented in this encounter Additional Health Concerns Assessment Noted Time PHQ-9 Depression Total Score: 0 07/25/19 25 1:13 PM EST documented as of this encounter Care Teams Front Desk Admin Relationship Specialty Start Date End Date Henyr Harvey MD [address] [place] [address] PCP - General Internal Medicine 10/27/19 documented as of this encounter
--- OUTSIDE RECORDS SUMMARY | 2025-02-28 11:20 | XMS_ITS | Encounter Summary ---
Author Organization [employer] Address [address] [place] [address] Care Team Providers Care Production Wood Craftsman Name Role Phone Henry Harvey MD Primary Care Prov ider Reason for Visit * Reason Onset Date Comments Reschedule 12/12/2022 Encounter Details Date Type Department Care Team ([facility] Contact Info) Description 12/12/2022 Telephone [facility] CHC MED & PEDS [address] [place] [address] Henry Harvey MD [address] [place] [address] Reschedule Social History Tobacco Use Types Packs/Day Years Used Date Smoking Tobacco: Former Cigarettes 1 28 Smokeless Tobacco: Never Alcohol Use Standard Drinks/Week Comments Yes 0 (1 standard drink = 0.6 oz pur e alcohol) Depression Answer Date Recorded Patient Health Questionnaire-9 Score 0 11/23/2022 Depression Answer Date Recorded Patient Health Questionnaire-2 Score 0 11/23/2022 Comments Unknown Sex and Gender Information Value Date Recorded Sex Assigned at Female 03/28/2022 10:26 AM EDT Legal Sex Female 10:26 AM EDT Gender Identity Female 03/28/2022 10:26 AM EDT Sexual Orientation Straight 03/28/2022 10 :26 AM EDT documented as of this encounter Miscellaneous Notes * Telephone Encounter - Shana Ch - 12/12/2022 2:07 PM EDT Tc from pt requesting to r/s 11/08 derm f/u Please contact pt at [phone] documented in this encounter Plan of Treatment Upcoming Encounters Date Type Department Care Team (Late st Contact Info) Description 04/21/2025 12:45 PM EST Office Visit [facility] ADULT DENTAL [address] [place] [address] Ally [place] [address] [place] [address] documented as of this encounter Visit Diagnoses Not on filedocumented in this encounter Additional Health Concerns Assessment Noted Time PHQ-9 Depression Total Score: 0 11/24/19 23 2:12 PM EDT documented as of this encounter Care Teams Production Wood Craftsman Relationship Specialty Start Date End Date Henry Harvey MD [address] [place] [id number] PCP - General Internal Medicine 10/27/19 documented as of this encounter
--- OUTSIDE RECORDS SUMMARY | 2025-02-28 11:20 | XMS_ITS | Encounter Summary ---
Author Organization [employer] Address [address] [place] [address] 7 [place] [address] Care Team Providers Care Community Resource Officer Name Role Phone Henry Harvey MD Primary Care Prov ider Reason for Visit * Reason Comments Med Refill Encounter Details Date Type Department Care Team ([facility] Contact Info) Description 08/23/2024 Refill [facility] CHC MED & PEDS [address] [place] [address] Henry Harvey MD [address] [place] [address] Social History Tobacco Use Types Packs/Day Years [...] Description 04/21/2025 12:45 PM EST Office Visit [facility] ADULT DENTAL [address] [place] [address] [place], Ally [address] [place] [address] documented as of this encounter Visit Diagnoses Not on filedocumented in this encounter Additional Health Concerns Assessment Noted Time PHQ-9 Depression Total Score: 0 07/25/19 25 1:13 PM EST documented as of this encounter Care Teams Community Resource Officer Relationship Specialty Start Date End Date Henry Harvey MD [address] [place] [phone] PCP - General Internal Medicine 10/27/19 documented as of this encounter
--- OUTSIDE RECORDS SUMMARY | 2025-02-28 11:20 | XMS_ITS | Encounter Summary ---
Author Organization [employer] Address [address] [facility] 7 [place] [address] Care Team Providers Care Terminal Make Up Operator Name Role Phone Henry Harvey MD Primary Care Prov ider Reason for Visit * Reason Onset Date Comments Prior Authorization 10/16/2024 Encounter Details Date Type Department Care Team ([facility] Contact Info) Description 10/16/2024 Telephone [facility] MEDICINE [address] [place] [address] Henry Harvey MD [address] [place] [address] Prior Authorization Social History Tobacco Use Types [...] encounter Miscellaneous Notes * Telephone Encounter - Gadiel Browne - 10/16/2024 2:57 PM EDT Tc from pt stating Dulaglutide (Trulicity) 3 MG/0.5ML solution auto-injector needs a PA. documented in this encounter Plan of Treatment Upcoming Encounters Date Type Department Care Team (Late st Contact Info) Description 04/21/2025 12:45 PM EST Office Visit [facility] ADULT DENTAL [address] [place] [address] [place], Ally [address] [place] [address] documented as of this encounter Visit Diagnoses Not on filedocumented in this encounter Additional Health Concerns Assessment Noted Time PHQ-9 Depression Total Score: 0 07/25/19 25 1:13 PM EST documented as of this encounter Care Teams Terminal Make Up Operator Relationship Specialty Start Date End Date Henry Harvey MD [address] [place] [address] PCP - General Internal Medicine 10/27/19 documented as of this encounter
--- OUTSIDE RECORDS SUMMARY | 2025-02-28 11:20 | XMS_ITS | Clinical Summary ---
Author Organization [facility] Address [address] [facility] [address] [place] [phone] Phone Care Team Providers Care Name Plate Stamper Name Role Phone Henry Harvey MD Primary Care Prov ider Allergies No known active allergies Medications tolterodine (DETROL LA) 4 MG 24 hr capsule TOME ANIL C PSULA DOS VECES AL D A 2 Active terbinafine HCL (LAMISIL) 250 mg tablet TOME ANIL TABLETA TODOS LOS D 2 Active pantoprazole (PROTONIX) 20 MG tablet TOME ANIL TABLETA TODOS LOS D 2 Active naproxen (NAPROSYN) 500 MG tablet TOME ANIL TABLETA DOS VECES AL D A CON ALIMENTO 2 Active metFORMIN (GLUCOPHAGE) 1000 MG tablet TOME ANIL TABLETA DOS VECES AL D A IN AM AND EVENING 2 Active losartan-hydroC HLOROthiazide (HYZAAR) 100-25 mg per tablet TOME ANIL TABLETA TODOS LOS D 2 Active glipiZIDE (GLUCOTROL) 5 MG tablet TOME ANIL TABLETA DOS VECES AL D A BEFORE MEALS 2 Active escitalopram oxalate (LEXAPRO) 20 MG tablet TOME ANIL TABLETA TODOS LOS D EN LA MA JASMINE 2 Active JARDIANCE 25 mg tablet TOME ANIL TABLETA TODOS LOS D EN LA MA JASMINE 2 Active clonazePAM (KLONOPIN) 1 MG tablet TOME ANIL TABLETA LUISA VECES AL D A CUANDO SEA NECESARIO 2 Active cetirizine (ZYRTEC) 10 MG tablet Take 10 mg by mouth daily. 2 Active calcium carbonate-vitam in D3 1500 mg (600 mg elemental)-400 units per tablet Take 1 tablet by mouth daily. 2 Active atorvastatin (LIPITOR) 40 MG tablet TOME ANIL TABLETA TODOS LOS D 2 Active aspirin 81 MG EC tablet Take 81 mg by mouth daily. 2 Active amLODIPine (NORVASC) 5 MG tablet TOME ANIL TABLETA TODOS LOS D 2 Active acetaminophen (TYLENOL) 500 MG tablet TOME ANIL O DOS TABLETAS POR V A ORAL CADA OCHO HORAS CUANDO SEA NECESARIO PARA EL DOLOR 2 Active medroxyPROGESTE Abdirashid (PROVERA) 2.5 MG tabletIndicatio ns:Menorrhagia with irregular cycle TOME ANLI TABLETA TODOS LOS BUNN 30 tablet 3 3 Active Active Problems Problem Noted Date Diagnosed Date Hyperlipidemia 03/08/2022 Hypertension 03/08/2022 Type 2 diabetes mellitus wit h neurological manifestations, controlled 03/08/2022 Back pain 08/01/2014 CTS (carpal tunnel syndrome) 08/01/2014 Obesity 08/01/2014 Hepatic steatosis 06/04/2014 Immunizations Immunization Administration Dates Next Due Tdap 05/02/2014 Family History Relation Status Comments Mother Alive Social History Tobacco Use Types Packs/Day Years Used Date Smoking Tobacco: Every Day Cigarettes Smokeless Tobacco: Never Alcohol Use Standard Drinks/Week Comments Not Currently 0 (1 standard drink = 0.6 oz pur e alcohol) Education Answer Date Recorded Are you interested in more education? Not on lucille e 09/23/2022 Are you concerned about learning? Not on file 09/23/2022 No 09/23/2022 No 09/23/2022 Digital Access Answer Date Recorded No 10/24/2022 No 10/24/2022 No 10/24/2022 Reliable internet access at home? Not on file 10/24/2022 Device with a working camera? Not on file Comments No Sex and Gender Information Value Date Recorded Sex Assigned at Not on file Legal Sex Female 9:30 PM EDT Gender Identity Not on file Sexual Orientation Not on file Last Filed Vital Signs Vital Sign Reading Time Taken Comments Blood Pressure 122/76 06/29/2022 1:29 PM EST Pulse - - Temperature - - Respiratory Rate - - Oxygen Saturation - - Inhaled Oxygen Concentration - - Weight 93 kg (205 lb) 03/08/2022 2:41 PM EDT Height 157.5 cm (5' 2 ) 06/29/2022 1:29 PM EST Body Mass Index - - Plan of Treatment Health Maintenance Due Date Last Done Comments CREATININE LEVEL 1974 HEMOGLOBIN A1C 1974 POTASSIUM LEVEL 1974 DEPRESSION SCREENING 1986 SMOKING Hx and SMOKELESS TOB ACCO SCREENING 1987 HEPATITIS C SCREENING 1992 HIV ONE-TIME SCREENING (18-6 5 YEARS) 1992 PNEUMOCOCCAL VACCINES (50+ y ears) (1 of 2 - PCV) 1993 PAP SMEAR 1995 MAMMOGRAM 2014 COLOGUARD 2019 COLONOSCOPY 2019 COLORECTAL CANCER SCREENING 2019 FIT TEST 2019 FOBT 2019 SIGMOIDOSCOPY 2019 VIRTUAL COLONOSCOPY 2019 DIABETIC EYE EXAM 03/08/2022 10/08/2014 BLOOD PRESSURE 12/27/2022 06/29/2022 ZOSTER VACCINES (1 of 2) 2024 Adult Td,Tdap Booster 05/02/2024 05/02/2014 INFLUENZA VACCINE (#1) 2024 COVID-19 VACCINE (1 - 2023-2 5 season) 2025 HEPATITIS A VACCINES Aged Out No long er eligible based on patient's age to complete this topic HIB VACCINES Aged Out No longer eligi ble based on patient's age to complete this topic MENINGOCOCCAL VACCINES (ACWY) Aged Out No longer eligible based on patient's age to complete this topic MENINGOCOCCAL VACCINES (B) Aged Out N o longer eligible based on patient's age to complete this topic Medical Devices Not on file Insurance [facility] C3 ACO C3 ACO C3 ACO C3 ACO C3 ACO C3 ACO C[address] [place] [address] [place] [address] C3 ACO [facility] C3 ACO Care Teams Name Plate Stamper Relationship Specialty Start Date End Date Henry Harvey MD [address] [place] [phone] PCP - General Internal Medicine 02/16/22 Additional Source Comments The information contained in this document represents components of the legal health record. It is not the complete legal health record.[facility]
--- OUTSIDE RECORDS SUMMARY | 2025-02-28 11:20 | XMS_ITS | Encounter Summary ---
Author Organization [employer] Address [address] [facility] 7 [place] [address] Care Team Providers Care Casing Wringer Operator Name Role Phone Henry Harvey MD Primary Care Prov ider Reason for Visit * Reason Comments Med Refill Encounter Details Date Type Department Care Team ([facility] Contact Info) Description 11/10/2023 Refill [facility] CHC MED & PEDS [address] [place] [address] Henry Harvey MD [address] [place] [address] Primary hypertension; Type 2 diabetes mellitus without complication, without long-term current use of insulin ([facility]) Social History Tobacco Use Types Packs/Day Years Used Date Smoking Tobacco: Former Cigarettes 06 25 Smokeless Tobacco: Never Alcohol Use Standard Drinks/Week [...] Description 04/21/2025 12:45 PM EST Office Visit [facility] ADULT DENTAL [address] [place] [address] [place], Ally [address] [place] [address] documented as of this encounter Visit Diagnoses Diagnosis Primary hypertension Unspecified essential hypertension Type 2 diabetes mellitus without complication, without long-term current use of insulin (HCC) documented in this encounter Additional Health Concerns Assessment Noted Time PHQ-9 Depression Total Score: 0 11/24/19 23 2:12 PM EDT documented as of this encounter Care Teams Casing Wringer Operator Relationship Specialty Start Date End Date Henry Harvey MD [address] [place] [address] PCP - General Internal Medicine 10/27/19 documented as of this encounter
--- OUTSIDE RECORDS SUMMARY | 2025-02-28 11:20 | XMS_ITS | Encounter Summary ---
Author Organization [employer] Address [address] [facility] 7 [place] [address] Care Team Providers Care Incinerator Plant Laborer Name Role Phone Henry Harvey MD Primary Care Prov ider Reason for Visit * Reason Comments Med Refill Encounter Details Date Type Department Care Team ([facility] Contact Info) Description 11/04/2023 Refill [facility] CHC MED & PEDS [address] [place] [address] Henry Harvey MD [address] [place] [address] Primary hypertension Social History Tobacco Use Types [...] Description 04/21/2025 12:45 PM EST Office Visit [facility] ADULT DENTAL [address] [place] [address] [place], Ally [address] [place] [address] documented as of this encounter Visit Diagnoses Diagnosis Primary hypertension Unspecified essential hypertension documented in this encounter Additional Health Concerns Assessment Noted Time PHQ-9 Depression Total Score: 0 11/24/19 23 2:12 PM EDT documented as of this encounter Care Teams Incinerator Plant Laborer Relationship Specialty Start Date End Date Henry Harvey MD [address] [place] [id number] PCP - General Internal Medicine 10/27/19 documented as of this encounter
--- OUTSIDE RECORDS SUMMARY | 2025-02-28 11:20 | XMS_ITS | Encounter Summary ---
Author Organization [employer] Address [address] [place] [address] 7 [place] [address] Care Team Providers Care Rubber Goods Finisher Name Role Phone Henry Harvey MD Primary Care Prov ider Reason for Visit * Reason Comments Med Refill Encounter Details Date Type Department Care Team ([facility] Contact Info) Description 08/23/2024 Refill [facility] CHC MED & PEDS [address] [place] [address] Henry Harvey MD [address] [place] [address] Social History Tobacco Use Types Packs/Day Years [...] Description 04/21/2025 12:45 PM EST Office Visit [facility] ADULT DENTAL [address] [place] [address] [place], Ally [address] [place] [address] documented as of this encounter Visit Diagnoses Not on filedocumented in this encounter Additional Health Concerns Assessment Noted Time PHQ-9 Depression Total Score: 0 07/25/19 25 1:13 PM EST documented as of this encounter Care Teams Rubber Goods Finisher Relationship Specialty Start Date End Date Henry Harvey MD [address] [place] [id number] PCP - General Internal Medicine 10/27/19 documented as of this encounter
--- OUTSIDE RECORDS SUMMARY | 2025-02-28 11:20 | XMS_ITS | Encounter Summary ---
Author Organization [employer] Address [address] [facility] 7 [place] [address] Care Team Providers Care Director Talent Management Name Role Phone Henry Harvey MD Primary Care Prov ider Reason for Visit * Reason Comments Med Refill Encounter Details Date Type Department Care Team ([facility] Contact Info) Description 10/18/2024 Refill [facility] CHC MED & PEDS [address] [place] [address] Henry Harvey MD [address] [place] [address] Primary hypertension Social History Tobacco Use Types [...] [facility] ADULT DENTAL [address] [place] [address] [place], Ally [address] [place] [address] documented as of this encounter Visit Diagnoses Diagnosis Primary hypertension Unspecified essential hypertension documented in this encounter Additional Health Concerns Assessment Noted Time PHQ-9 Depression Total Score: 0 07/25/19 25 1:13 PM EST documented as of this encounter Care Teams Director Talent Management Relationship Specialty Start Date End Date Henry Harvey MD [address] [place] [address] PCP - General Internal Medicine 10/27/19 documented as of this encounter
--- OUTSIDE RECORDS SUMMARY | 2025-02-28 11:20 | XMS_ITS | Clinical Summary ---
Author Organization [facility] Address [address] [place] [address] Phone Care Team Providers Care Periodontal Assistant Name Role Phone Henry Harvey Primary Care Provide r Allergies No known active allergies Medications metFORMIN (GLUCOPHAGE) 1,000 mg tablet Take 1 tablet (1,000 mg total) by mouth 2 (two) times a day with meals. 5 Active glipiZIDE (GLUCOTROL) 5 mg tablet Take 1 tablet (5 mg total) by mouth 1 (one) time each day. 5 Active hydroCHLOROthiazi de (HYDRODIURIL) 50 mg tablet Take 1 tablet (50 mg total) by mouth 1 (one) time each day. 5 Active losartan (COZAAR) 100 mg tablet Take 1 tablet (100 mg total) by mouth 1 (one) time each day. 5 Active simvastatin (ZOCOR) 20 mg tablet take 1 tablet by mouth at bedtime 5 Active gabapentin (NEURONTIN) 100 mg capsule Take 1 Cap by mouth 3 times daily. Take 1 cap by mouth 3 times tid for 5 days, then 2 cap tid for 5 days, then 3 cap tid 5 Active fluorouraciL 5 % solution Apply 2 Drops topically daily. To the plantar wart 5 Active ammonium lactate (AMLACTIN) 12 % cream Apply to dry skin twice weekly 5 Active omeprazole (PriLOSEC) [address] capsule Take 1 Cap by mouth daily. 5 Active naproxen (NAPROSYN) 500 mg tablet Take 1 Tab by mouth 2 times daily (with meals). 5 Active RANITIDINE HCL ORAL ranitidine (ZANTAC) 300 MG capsule -Take 300 mg by mouth every evening. Active glucose blood test strip 1 Strip by In Vitro route 2 times daily. Active FREESTYLE LANCETS MISC 1 Strip by Does not apply route 2 times daily. Active medical supply, miscellaneous (BLOOD PRESSURE CUFF MISC) 1 Each by Does not apply route daily. BP cuff for home monitoring 4 Active UNABLE TO FIND Med Name: Salicylic Acid 40 % - Apply 1 Applicator topically daily. - Active ammonium lactate (AmLactin) 12 % lotion Apply topically if needed for dry skin. 400 g 5 09/05/19 26 Active Active Problems Problem Noted Date Diagnosed Date Hyperlipidemia 03/22/2024 Hypertension 03/22/2024 Type 2 diabetes mellitus wit h neurological manifestations, controlled ([facility] V24, [facility] V28) 03/22/2024 Back pain 08/01/2014 CTS (carpal tunnel syndrome) 08/01/2014 Obesity 08/01/2014 Hepatic steatosis 06/04/2014 Encounters Date Type Department Care Team Description 02/11/2025 2:15 PM EDT Office Visit Orthopedic Surgery [place] [address] [phone] Fred Bolton DPM Exostosis of right foot (Primary Dx); Verruca plantaris; Hammer toe of left foot; Acquired hammer toe of right foot 12/25/2024 2:00 PM EDT Office Visit Orthopedic Surgery [facility] [address] [phone] Fred Bolton DPM Dermatophytosis of nail (Primary Dx); Diabetic mononeuropathy simplex ([facility] V24, [facility] V28); Verruca plantaris; Acquired hammer toe of right foot; Hammer toe of left foot from Last 3 Months Immunizations Immunization Administration Dates Next Due Tdap Tetanus diptheria acell ular pertussis (Boostrix; Adacel) 7yo and older 05/02/2014 Medical History Medical History Date Comments Hypertension DX:Hypertension Diabetes ([facility] V24, [facility] V28) DX:Diabetes ([facility]) Hyperlipidemia DX:Hyperlipidemi a Diabetes mellitus type 2, uncontrolled DX:Diabetes mellitus type 2, uncontrolled Type 2 diabetes mellitus wit h neurological manifestations, controlled ([facility] V24, [facility] V28) DX:Type 2 diabetes mellitus with neurological manifestations, controlled ([facility]) Family History Medical History Relation Name Comments Blindness Neg Hx Cataracts Neg Hx Glaucoma Neg Hx Macular degeneration Neg Hx Strabismus Neg Hx Relation Name Status Comments Father Alive diabetes, HTN Mother Alive diabetes, HTN Social History Tobacco Use Types Packs/Day Years Used Date Smoking Tobacco: Every Day Cigarettes Alcohol Use Standard Drinks/Week Comments No 0 (1 standard drink = 0.6 oz pur e alcohol) Comments Unknown Sex and Gender Information Value Date Recorded Sex Assigned at Not on file Legal Sex Female 5:08 AM EST Gender Identity Not on file Sexual Orientation Not on file Obstetrics History Last Filed Vital Signs Vital Sign Reading Time Taken Comments Blood Pressure - - Pulse - - Temperature - - Respiratory Rate - - Oxygen Saturation - - Inhaled Oxygen Concentration - - Weight 94.3 kg (208 lb) 12/25/2024 2:17 PM EDT Height 157.5 cm (5' 2.01 ) 12/25/2024 2:17 PM ED T Body Mass Index 38.03 12/25/2024 2:17 PM EDT Plan of Treatment Upcoming Encounters Date Type Department Care Team (Late st Contact Info) Description 03/20/2025 1:30 PM EDT Office Visit Orthopedic Surgery - [place] [address] [phone] Fred Bolton, DPM [address] [phone] Health Maintenance Due Date Last Done Comments Breast Cancer Screening 1974 Colorectal Cancer Screening: Colonoscopy 1974 Diabetes: Annual Foot Exam 1984 Diabetes: Annual Retina Eye Exam 1984 Pneumococcal Vaccine: 50+ Years (1 of 2 - PCV) 1993 Cervical Cancer Screening: Pap Smear 1995 Diabetes: Annual GFR (Glomerular Filtration Rate) 09/12/2015 09/11/2014 HIV Screening 05/01/2022 Lung Cancer Screening (Low Dose CT) 05/01/2022 Social Influencers of Health Screening 05/01/2022 Diabetes: Annual Urine Albumin-Creatinine Ratio (uACR) 05/12/2022 09/11/2014 Hypertension/CHF/CAD Annual BMP Blood Test 05/12/2022 09/11/2014 Zoster Vaccines (1 of 2) 2024 Depression Screening 05/29/2024 Diabetes: Blood Sugar Control Test (HGBA1C) 09/13/2024 03/15/2024, 09/11/2014 COVID-19 Vaccine (3 - season) 2025 01/06/2021, 12/16/2020 Influenza Vaccine (#1) 2025 9, 02/28/2018, 02/28/2017, Additional history exists DTaP,Tdap,and Td Vaccines (3 - Td or Tdap) 12/15/2026 12/15/2016, 05/02/2014 Cholesterol Screening (Lipid Panel) 03/15/2029 03/15/2024, 09/11/2014 RSV Immunization Adult Patients (1 - 1-dose 75+ series) 2049 Hepatitis A Vaccines Aged Out 01/21/2016, 02/14/20 15 No longer eligible based on patient's age to complete this topic Hepatitis B Vaccines Completed 02/22/2019, 09/11/2018, 01/21/2016 Hepatitis C Screening Completed 02/06/2023 HIB Vaccines Aged Out No longer eligi ble based on patient's age to complete this topic HPV Vaccines Aged Out No longer eligi ble based on patient's age to complete this topic IPV Vaccines Aged Out No longer eligi ble based on patient's age to complete this topic MMR Vaccines Aged Out No longer eligi ble based on patient's age to complete this topic Meningococcal ACWY Vaccine Aged Out N o longer eligible based on patient's age to complete this topic Meningococcal B Vaccine Aged Out No l onger eligible based on patient's age to complete this topic RSV Immunization Patients Under 20 months Aged Out No longer eligible based on patient's age to complete this topic Varicella Vaccines Aged Out No longer eligible based on patient's age to complete this topic Procedures Procedure Name Priority Date/Time Associated Diagnosis Comments HM URINE ALBUMIN CREATININE RATIO Routine 09/11/2014 ANNUAL BMP BLOOD TEST Routine 09/11/2014 HEMOGLOBIN A1C Routine 09/11/2014 LIPID PANEL Routine 09/11/2014 from Last 3 Months or Most Recently Relevant to Health Maintenance Results * Urine Albumin Creatinine Ratio (09/11/2014) Urine Albumin Creatinine Ratio abstracted [facility] Provider MD HEALTH MAINTENANCE Final Result * Annual BMP Blood Test (09/11/2014) Pathologist [facility] Annual BMP Blood Test abstracted [facility] Provider MD HEALTH MAINTENANCE Final Result * (ABNORMAL) Hemoglobin A1c (09/11/2014) Pathologist [facility] Hemoglobin A1C 6.7(A) 4.0 - 6.0 % Blood Venous blood specimen / Unknown Result [facility] Provider MD LAB BLOOD ORDERABLES Ary l Result * (ABNORMAL) Lipid panel (09/11/2014) Pathologist [facility] LDL/HDL Ratio 4 0 - 4 Triglycerides 182(A) 0 - 150 mg/dL Cholesterol 219(A) 0 - 200 mg/dL HDL 49 >=40 mg/dL LDL Cholesterol 134(A) 0 - 100 mg/dL Blood Venous blood specimen / Unknown Result [facility] Provider LAB BLOOD ORDERABLES Ary l Result from Last 3 Months or Most Recently Relevant to Health Maintenance Insurance MEDICAID - [place] Care Teams Periodontal Assistant Relationship Specialty Start Date End Date Henry Harvey [address] [place], [place] PCP - General 01/17/24
--- OUTSIDE RECORDS SUMMARY | 2025-02-28 11:20 | XMS_ITS | Encounter Summary ---
Author Organization [employer] Address [address] [place] [address] 7 [place] [address] Care Team Providers Care Dot Net Architect Name Role Phone Henry Harvey MD Primary Care Prov ider Encounter Details Date Type Department Care Team (Late Contact Info) Description 02/23/2023 Orders Only [facility] MEDICINE [address] [place], [place] [phone] Provider, MD Lina Social History Tobacco Use Types Packs/Day Years [...] Office Visit [facility] ADULT DENTAL [address] [place], [place] [phone] Ally Berumen [address] [place], [place] [phone] documented as of this encounter Procedures Procedure Name Priority Date/Time Associated Diagnosis Comments HM PAP/HPV Routine 12/15/2021 documented in this encounter Results * Hm Pap Smear (12/15/2021) us Historical Provider HEALTH MAINTENANCE Final Result documented in this encounter Visit Diagnoses Not on filedocumented in this encounter Additional Health Concerns Assessment Noted Time PHQ-9 Depression Total Score: 0 11/24/19 23 2:12 PM EDT documented as of this encounter Care Teams Dot Net Architect Relationship Specialty Start Date End Date Henry Harvey MD [address] [place] [id number] PCP - General Internal Medicine 10/27/19 documented as of this encounter
--- OUTSIDE RECORDS SUMMARY | 2025-02-28 11:20 | XMS_ITS | Encounter Summary ---
Author Organization [email or web address] Address [address] [place] [address] [address], [place] [address] Care Team Providers Care Framing Machine Tender Name Role Phone Henry Harvey MD Primary Care Prov ider Encounter Details Date Type Department Care Team ([facility] Contact Info) Description 02/16/2023 Orders Only [facility] MED & PEDS [address] [place], [place] [phone] Henry Harvey MD [address] [place] [address] Mixed hyperlipidemia Social History Tobacco Use Types Packs/Day Years [...] Encounters Date Type Department Care Team (Late Contact Info) Description 04/21/2025 12:45 PM EST Office Visit [facility] ADULT DENTAL [address] [place], [place] [phone] [place], Ally [address] [place] [address] documented as of this encounter Visit Diagnoses Diagnosis Mixed hyperlipidemia documented in this encounter Additional Health Concerns Assessment Noted Time PHQ-9 Depression Total Score: 0 11/24/19 23 2:12 PM EDT documented as of this encounter Care Teams Framing Machine Tender Relationship Specialty Start Date End Date Henry Harvey MD [address] [place] [id number] PCP - General Internal Medicine 10/27/19 documented as of this encounter
== END 2025-02-28 10:49 | disposition home or self-care (01) ==
LOC: HO.HPS 10:26
PROVIDERS: PCP Internal Medicine; Referring Provider Internal Medicine; Visit Provider Physician Assistant Medical
DX: F17.210 Nicotine dependence, cigarettes, uncomplicated (principal)
CPT/HCPCS: G0296

== ENCOUNTER 2025-02-28 10:34 | Outpatient (REF) | payer MEDICAID, SELFPAY ==
--- NOTE | ~2025-02-28 | CT_ITS ---
EXAMINATION: CT LOW-DOSE SCREENING CHEST WITHOUT CONTRAST CLINICAL INFORMATION: 49-year-old female, current smoker, 33 pack years, lung cancer screening. COMPARISON: None available. TECHNIQUE: Multidetector volumetric CT imaging of the chest is performed on a Siemens SOMATOM Definition scanner without contrast using low dose technique. Additional 2D coronal and sagittal reformatted images and axial 3D maximum intensity projection (MIP) images are generated on the CT workstation. This CT examination was performed using dose optimization techniques as appropriate, variously including the following: *Automated exposure control *Adjustment of mA and/or kV according to patient size (this includes techniques or standardized protocols for targeted exams where dose is matched to indication/reason for exam; i.e. extremities or head) *Use of iterative reconstruction technique FINDINGS: PULMONARY NODULES: 3 mm nodule in the right major fissure, consistent with intrapulmonary lymph node (series 5, image 58). 3 mm nodule in the right major fissure, consistent with intrapulmonary lymph node (series 5, image 73). No suspicious pulmonary nodules present. LUNGS: Lungs are well expanded and clear bilaterally. There is mild emphysema. No abnormal consolidative opacities or interstitial opacities evident. Minimal thickening of the small airways in keeping with mild chronic bronchitis. No bronchiectasis. There is no effusion or pneumothorax. MEDIASTINUM: Normal thyroid. No mediastinal mass or lymphadenopathy present. Aorta is normal in caliber and course. Main pulmonary artery is normal in caliber. Heart size is normal. There is no pericardial effusion. Moderate aortic valvular calcifications are present. This could indicate aortic stenosis or bicuspid valve. Esophagus is normal. CORONARY ARTERY CALCIFICATION: Mild. CHEST WALL/AXILLA: No abnormal masses or lymph nodes present. UPPER ABDOMEN: Mild fatty infiltration of the liver present. Remainder of the imaged upper abdominal structures appear normal. OSSEOUS STRUCTURES: No suspicious lytic or blastic bone lesions. Mild degenerative changes of the spine. CT/CT lung screening IMPRESSION: 1. No suspicious pulmonary nodules. 2. Mild emphysema. No active pulmonary disease. 3. Mild small airway thickening consistent with mild chronic bronchitis. 4. Aortic valvular calcifications. This could indicate aortic stenosis or bicuspid valve. 5. Diffuse fatty infiltration of the liver. ASSESSMENT: 1. Lung-RADS Category 1: Negative. There are no nodules or there are definitely benign nodules. 2. Lung-RADS Category S: None. RECOMMENDATION: Continued routine annual low-dose CT lung screening in 1 year is recommended. An order for CT CHEST LOW DOSE CANCER SCREENING ([id number]) can be placed. Electronically signed by: Jerson Salvador MD 02/28/2025 11:09 AM EDT
== END 2025-02-28 10:35 | disposition home or self-care (01) ==
LOC: HO.CT 10:34
PROVIDERS: PCP Internal Medicine; Visit Provider Physician Assistant Medical
DX: Z12.2 Encounter for screening for malignant neoplasm of respiratory organs (principal); F17.210 Nicotine dependence, cigarettes, uncomplicated
CPT/HCPCS: 71271; G0296

== ENCOUNTER → 2025-02-28 10:36 | Outpatient (BNV) | payer MEDICAID, SELFPAY | PROVIDERS: PCP Internal Medicine; Visit Provider Radiology Diagnostic Radiology | DX: F17.210 Nicotine dependence, cigarettes, uncomplicated (principal) | CPT/HCPCS: 71271 ==

== ENCOUNTER 2025-04-07 10:50 | Outpatient (REF) | payer MEDICAID, SELFPAY ==
--- OUTSIDE RECORDS SUMMARY | 2025-04-07 12:56 | XMS_ITS | Encounter Summary ---
Author Organization [employer] Address [address] [place] [address] Care Team Providers Care [employer] Combination Teacher Name Role Phone Henry Harvey MD Primary Care Prov ider Encounter Details Date Type Department Care Team (Latest Contact Info) Description 08/09/2018 Abstract [facility] CONVERSIONS Dental, Provider, DDS Social History [...] Description 04/21/2025 12:45 PM EST Office Visit [facility] ADULT DENTAL [address] [place] [address] [place], Ally [address] [place] [address] 05/13/2025 1:15 PM EST Office Visit [facility] MED [facility] PEDS [address] [place] [address] Henry Harvey MD [address] [place], [place] [phone] documented as of this encounter Visit Diagnoses Not on filedocumented in this encounter Care Teams [employer] Combination Teacher Relationship Specialty Start Date End Date Henry Harvey MD [address] [place] [address] PCP - General Internal Medicine 10/27/19 documented as of this encounter
--- OUTSIDE RECORDS SUMMARY | 2025-04-07 12:56 | XMS_ITS | Encounter Summary ---
Author Organization [employer] Address [address] [facility] 7 [place] [address] Care Team Providers Care Labeling Strategist Name Role Phone Henry Harvey MD Primary Care Prov ider Reason for Visit * Reason Onset Date Comments Prior Authorization 03/25/2024 Encounter Details Date Type Department Care Team ([facility] Contact Info) Description 03/25/2024 Telephone [facility] MEDICINE [address] [place] [address] Henry Harvey MD [address] [place] [address] Prior Authorization Social History Tobacco Use Types [...] MG/0.5ML solution auto-injector To be sent to: [id number] documented in this encounter Plan of Treatment Upcoming Encounters Date Type Department Care Team (Late st Contact Info) Description 04/21/2025 12:45 PM EST Office Visit [facility] ADULT DENTAL [address] [place] [address] [place], Ally [address] [place] [address] 05/13/2025 1:15 PM EST Office Visit [facility] CHC MED & PEDS [address] [place] [address] Henry Harvey MD [address] [place] [address] documented as of this encounter Visit Diagnoses Not on filedocumented in this encounter Additional Health Concerns Assessment Noted Time PHQ-9 Depression Total Score: 0 11/24/19 23 2:12 PM EDT documented as of this encounter Care Teams Labeling Strategist Relationship Specialty Start Date End Date Henry Harvey MD [address] [place] [id number] PCP - General Internal Medicine 10/27/19 documented as of this encounter
--- OUTSIDE RECORDS SUMMARY | 2025-04-07 12:56 | XMS_ITS | Encounter Summary ---
Author Organization [employer] Address [address] [facility] 7 [place] [address] Care Team Providers Care Trouble Lineman Name Role Phone Henry Harvey MD Primary Care Prov ider Reason for Visit * Reason Comments Med Refill Encounter Details Date Type Department Care Team ([facility] Contact Info) Description 01/13/2024 Refill [facility] CHC MED & PEDS [address] [place] [address] Henry Harvey MD [address] [place] [address] Primary hypertension Social History Tobacco Use Types [...] Description 04/21/2025 12:45 PM EST Office Visit [facility] ADULT DENTAL [address] [place] [address] [place], Ally [address] [place] [address] 05/13/2025 1:15 PM EST Office Visit [facility] CHC MED & PEDS [address] [place] [address] Henry Harvey MD [address] [place] [address] documented as of this encounter Visit Diagnoses Diagnosis Primary hypertension Unspecified essential hypertension documented in this encounter Additional Health Concerns Assessment Noted Time PHQ-9 Depression Total Score: 0 11/24/19 23 2:12 PM EDT documented as of this encounter Care Teams Trouble Lineman Relationship Specialty Start Date End Date Henry Harvey MD [address] [place] [address] PCP - General Internal Medicine 10/27/19 documented as of this encounter
--- OUTSIDE RECORDS SUMMARY | 2025-04-07 12:56 | XMS_ITS | Clinical Summary ---
Author Organization [employer] Address [address] [place] [address] 7[address] [place] [address] Care Team Providers Care Contract Clerk Name Role Phone Henry Harvey MD Primary Care Prov ider Allergies No known active allergies Medications fluticasone (Flonase) 50 MCG/ACT nasal sprayIndications:S easonal allergies USE 1 SPRAY IN EACH NOSTRIL [...] mg by mouth Once per day. Active Blood Glucose Monitoring Suppl (FreeStyle Lite) w/Device kit 1 kit Once per day. 1 kit 04/18/20 24 Active FREESTYLE LITE test strip For glucose monitoring, check daily 100 each 12 04/18/20 24 025 Active Calcium Carb-Cholecalcifer ol 600-10 MG-MCG tabletIndications: Osteopenia of lumbar spine Take 1 tablet by mouth Once daily. 90 tablet 3 05/03/20 24 Active losartan-hydroCHLO ROthiazide (Hyzaar) 100-25 MG tabletIndications: Primary hypertension Take 1 tablet by mouth Once per day. 90 tablet 3 07/25/19 25 026 Active Acetaminophen Extra Strength 500 MG tablet TAKE 2 TABLETS BY MOUTH EVERY 8 HOURS IF NEEDED FOR MILD PAIN 120 tablet 07/26/19 25 Active Dulaglutide (Trulicity) 3 MG/0.5ML solution auto-injector Inject 3 mg under the skin 1 (one) time per week. 2 mL 3 10/18/19 25 026 Active amLODIPine (Norvasc) 5 MG tabletIndications: Primary hypertension Take 1 tablet (5 mg) by mouth in the morning. 90 tablet 1 11/13/19 25 Active atorvastatin (Lipitor) 80 MG tabletIndications: Mixed hyperlipidemia Take 1 tablet (80 mg) by mouth Once per day. 90 tablet 3 11/13/19 25 026 Active cetirizine (ZyrTEC) 10 MG tabletIndications: Chronic rhinitis Take 1 tablet (10 mg) by mouth in the morning. 90 tablet 1 11/13/19 25 Active aspirin (Aspirin Low Dose) 81 MG EC tablet Take 1 tablet (81 mg) by mouth Once per day. 90 tablet 3 11/13/19 25 026 Active Dulaglutide (Trulicity) 4.5 MG/0.5ML solution auto-injector [...] MILD PAIN 60 tablet 02/19/20 25 Active insulin pen needle 30G x 5 mm misc Use as instructed 100 each 12 03/19/20 24 025 Active Problems Problem Noted Date Diagnosed Date Mixed hyperlipidemia 11/12/2024 Assessment & Plan (03/10/2025 2:00 PM EDT): On statin therapy, keep low cholesterol diet and exercise as tolerated, target LDL<70 Assessment & Plan (11/12/2024 2:36 PM EDT): [...] with persistant vaginal cyst, will refer to ob-lunch wagon operator for evaluation Assessment & Plan (02/06/2023 3:42 [...] Eye exam booked for jul 24 at [place] Assessment & Plan (04/27/2023 12:15 PM EST): [...] Hyperlipidemia associated with type 2 diabetes m ellitus 02/28/2018 Assessment & Plan (11/12/2024 2:34 PM [...] of therapy Hypertension 02/28/2018 Assessment & Plan (03/10/2025 1:59 PM EDT): Controlled, keep low sodium diet and exercise as tolerated, keep blood pressure log, target <140/90 Assessment & Plan (04/18/2024 1:54 PM EST): [...] 2:51 PM EDT): Controlled, last results as [id number]/[id number]/79-127/80, on losartan/hctz 100/25 and amlodipine 5mg, reinforced low sodium diet and exercise as tolerated, she refers has been losing weight. Migraine 02/28/2018 Mood disorder 02/28/2018 Back pain 08/01/2014 Hepatic steatosis 06/04/2014 Encounters Date Type Department Care Team Description 02/28/2025 Orders Only [facility] External Provider, [facility] 02/15/2025 Refill [facility] [address] [place] [address] Henry Harvey MD 01/14/2025 Telephone [facility] [address] [place] [address] Henry Harvey MD Medication Question 01/13/2025 1:30 PM EDT Telemedicine [facility] [address] [place] [address] Henry Harvey MD Screening for colon cancer (Primary Dx); Encounter for screening mammogram for malignant neoplasm of breast; Dietary counseling; Exercise counseling; Primary hypertension; Mixed hyperlipidemia 01/13/2025 Travel 01/10/2025 Telephone [facility] [address] [place] [address] Henry Harvey MD chart prep from Last [...] Description 04/21/2025 12:45 PM EST Office Visit [facility] ADULT DENTAL [address] [place] [address] [place], Ally [address] [place] [address] 05/13/2025 1:15 PM EST Office Visit [facility] CHC MED & PEDS [address] [place] [address] Henry Harvey MD [address] [place] [address] Health Maintenance Due Date Last Done Comments CT Colonography 1974 Colonoscopy 1974 Colorectal Cancer Screening 1974 FIT DNA/Cologuard 1974 FIT 1974 FOBT 1974 HIV Screening 1974 Sigmoidoscopy 1974 Disability Screening 1974 Diabetes: Foot Exam 1984 Family Planning (PISQ) 1989 Pneumococcal Vaccine: 50+ Years (1 of 2 - PCV) 1993 Diabetes: Urine Protein Screening 02/07/2024 02/06/2023, 09/18/2020 Zoster Vaccines (1 of 2) 2024 Eye [...] Screening 07/25/2025 07/25/2024 Tobacco Screening 10/08/2025 10/08/2024 Lung Cancer Screening 02/28/2026 02/28/2025 Cervical Cancer Screening 12/15/2026 DTaP/Tdap/Td Vaccines (3 - Td or Tdap) 12/15/2026 12/15/2016, 05/02/2014 HPV/Cotest 12/15/2026 12/15/2021, 11/27, 04/06/2021 Pap Smear 12/15/2026 12/15/2021, 04/06/2021 Dental X-Ray: Full Mouth 03/15/2027 024, 02/14/2019, 03/19/2014 RSV Patients and Patients Aged 60 years or older (1 - 1-dose 75+ series) 2049 Hepatitis A Vaccines Completed 01/21/2016, 02/14/20 Hepatitis B Vaccines Completed 02/22/2019, 09/11/2018, 01/21/2016 [...] polyneuropathy, without long-term current use of insulin ([facility]/HCC) LIPID PANEL, STANDARD Routine 03/15/2024 11:30 AM EDT Type 2 diabetes mellitus with diabetic polyneuropathy, without long-term current use of insulin ([facility]/HCC) INTRAORAL - COMPLETE SERIES OF RADIOGRAPHIC IMAGES [...] AM EDT Narrative 02/28/2025 11:12 AM EDT [place] [address] [address] Scan Report Signed Patient: Marie Cobos MR#: [id number] : 1975 Acct:[id number] Age/Sex: 49 / F ADM Date: 02/28/25 Loc: HO.CT Attending Dr: Brandy Greenberg PA-C Ordering Physician: Brandy Greenberg PA-C Date of Service: 02/28/25 Procedure(s): CT lung screening Accession Number(s): [id number] cc: Henry Harvey MD; Brandy Greenberg PA-C Report Number: [id number]: Total DLP = 64.00 mGy-cm Reason for [...] for CT CHEST LOW DOSE CANCER SCREENING ([id number]) can be placed. Electronically signed by: Jerson Salvador MD 02/28/2025 11:09 AM EDT Dictated By: Jerson Salvador MD Signed By: <Electronically signed by Jerson Salvador MD in OV> 02/28/25 1109 DD/ 1039 TD/TT: 02/28/25 1054 Frame Nailer: Procedure Note Donotuseinterpreter, Image - 02/28/[address] [place] [address] [address] Scan Report Signed Patient: Marie Cobos AMR#: [id number] : 1975Acct:[id number] Age/Sex: 49 / FADM Date: 02/28/25 Loc: HO.CT Attending Dr: Brandy Greenberg PA-C Ordering Physician: Brandy Greenberg PA-C Date of Service: 02/28/25 Procedure(s): CT lung screening Accession Number(s): [id number] cc: Henry Harvey MD; Brandy Greenberg PA-C Report Number: [id number]: Total DLP = 64.00 mGy-cm Reason for [...] for CT CHEST LOW DOSE CANCER SCREENING ([id number]) can be placed. Electronically signed by: Jerson Salvador MD 02/28/2025 11:09 AM EDT Dictated By: Jesron Salvador MD Signed By: <Electronically signed by Jerson Salvaodr MD in OV> 02/28/25 1109 DD/ 1039 TD/TT: 02/28/25 1054 Frame Nailer: [facility] External Provider IMG CT PROCEDURES Final Result * (ABNORMAL) Hemoglobin A1c (03/15/2024 11:30 AM EDT) Hemoglobin A1c 6.7(H) <6.0 % [facility] Comment:Hemoglobin A1C Refer ence Range Adults: 4.8 - 6.0 % Non diabetic: < 6.0 % Goal: < 7.0 %Additional Action Suggested: > 8.0 %Note: Hemoglobin A1c results are invalid for patients with abnormal amounts of HbF. Blood transfusions may impact the HbA1c concentration in the patient sample. Estimated Average Glucose 146 mg/dL [facility] Comment:eAG = Estimated ave rage glucose which is %A1C expressed asaverage glucose, using the formula of the [id number] Glucose study (ADAG), Diabetes Care, Vol.31,#8,Dec. 2007 Blood Venous blood specimen / Unknown 03/15/2024 11:30 AM EDT 03/15/2024 1:15 PM EDT us Henry Fajardo MD LAB BLOOD ORDERABL ES Final Result [facility] [address] [place] [phone] * (ABNORMAL) Lipid Panel, Standard (03/15/2024 11:30 AM EDT) Triglycerides 83 <150 mg/dL [facility] Comment:Desirable Triglyceri de: less than 150 mg/dLBorderline High Triglyceride 150-199 mg/dLHigh Triglyceride: 200-499 mg/dLVery High Triglyceride: greater than or equal to 5OO mg/dL Cholesterol 135 <200 mg/dL [facility] Comment:Desirable Cholestero l: less than 200 mg/dLBorderline High Cholesterol: 200-239 mg/dLHigh Cholesterol: greater than 239 mg/dL LDL Cholesterol Calculated 88 <100 mg/dL [facility] Comment:Desirable LDL: less than 100 mg/dLNear Optimal/Above Optimal LDL: 110- 129 mg/dLBorderline High LDL: 130-159 mg/dLHigh LDL: 160-189 mg/dLVery High LDL: greater than or equal to 190 mg/dL HDL Cholesterol 31(L) >40 mg/dL [facility] Comment:Desirable HDL: great er than 40 mg/dL Note: This HDL assay may give artificially low results in patients with liver disease. Blood Venous blood specimen / Unknown 03/15/2024 11:30 AM EDT 03/15/2024 1:15 PM EDT Henry Fajardo MD LAB BLOOD ORDERABL ES Final Result Performing Organization Address [facility] Co de Phone Number [facility] [address] [place] [phone] * Albumin, Random Urine W/Creatinine (02/06/2023 4:00 PM EDT) Creatinine, Urine 41.44 mg/dL [facility] Microalbumin Urine <5.0 mg/L [facility] Microalbum Creatinine Ratio Ur TNP <30 ug/mg cr [facility] Comment:Unable to calculate albumin/creatinine ratio due to lowmicroalbumin or creatinine result. 02/06/2023 4:00 PM EDT 02/06/2023 6:38 PM EDT Henry Fajardo MD LAB URINE ORDERABL ES Final Result Performing Organization Address [facility] de Phone Number [facility] [address] [place] [phone] * Hepatitis C Antibody with Reflex to HCV, RNA, Quantitative, Real-Time PCR (02/06/2023 3:56 PM EDT) Hepatitis C Antibody Nonreactive Nonreactive [facility] Comment:Antibodies to HCV no t detected; does not exclude early acuteHCV infection. Blood Venous blood specimen / Unknown 02/06/2023 3:56 PM EDT 02/06/2023 5:49 PM EDT Henry Fajardo MD LAB BLOOD ORDERABL ES Final Result Performing Organization Address [facility] Co de Phone Number [facility] [address] [place] [address] [phone] * BI Mammogram Screening Tomosynthesis Bilateral (01/06/2023 11:30 AM EDT) Anatomical Region Laterality Modality Breast Bilateral Mammography 01/06/2023 11:3 0 AM EDT Narrative 01/09/2023 12:13 PM EDT [facility] [address] [place] [address] Mammography Report Signed Patient: Marie Cobos MR#: M [id number] : 1975 Acct:[id number] Age/Sex: 47 / F ADM Date: 01/06/23 Loc: JM Attending Dr: Henry Fajardo MD Ordering Physician: Henry Harvey MD Res ults: Date of Service: 01/06/23 Follow Up: Procedure(s): MM tomosynthesis screening BI Accession Number(s): [id number] cc: Henry Harvey MD EXAMINATION: MM SCREENING [...] in OV> 01/09/23 1210 DD/ 1130 TD/TT: Frame Nailer: Procedure Note Donotuseinterpreter, Image - 01/09/2023 [place] [facility] [address] [place] [address] Mammography Report Signed Patient: Marie Cobos AMR#: M [id number] : 1975Acct:[id number] Age/Sex: 47 / FADM Date: 01/06/23 Loc: HO.MAMMO Attending Dr: Henry Fajardo MD Ordering Physician: Henry Harvey ults: Date of Service: 01/06/23Follow Up: Procedure(s): MM tomosynthesis screening BI Accession Number(s): [id number] cc: Henry Harvey MD EXAMINATION: MM SCREENING [...] in OV> 01/09/23 1210 DD/ 1130 TD/TT: Frame Nailer: Henry Fajardo MD IMG BI PROCEDURES Final Result * HPV E6/E7 RFLX LG 16 18/45 (12/15/2021 1:36 PM EDT) HPV 16 RNA [facility] HPV 18/45 RNA [facility] HPV E6 E7 ADD [facility] HPV mRNA E6/E7 rflx Not Detected Not Detected [facility] Comment: Methodology: Sole Scraper-Mediated Amplification This assay detects E6/E7 viral messenger RNA (mRNA) from 14 high-risk HPV types (16,18,31,33,35,39,45,51,52,56,58,59,66,68). Cervical sources are required for HPV testing. If a vaginal source from a patient who has had a total hysterectomy with removal of cervix was submitted, please contact the testing laboratory for alternative testing options. For additional information, please refer to http://education.[employer].com/faq/SFW685d1 (This link if provided for information/ educational purposes only.) THIS TEST WAS PERFORMED AT: [employer] [facility] [address] [place] [address],[place] [address] LAMINE PIMENTEL MD 12/15/2021 1:36 PM EDT Mina Alcantar MD HISTORICAL/NON ORDERABLE LABS Fi nal Result [facility] [address] * Hm Pap Smear (12/15/2021) Historical Provider HEALTH MAINTENANCE Final Result from Last 3 Months or Most Recently Relevant to Health Maintenance Insurance [facility] C[facility] [place] [facility] STAND ADULT * Guarantor: Marie Cobos Account Type Relation to Patient Date of Phone Billing Address Personal/Family Self [place], [place] Care Teams Contract Clerk Relationship Specialty Start Date End Date Henry Harvey MD [address] [place] [address] PCP - General Internal Medicine 10/27/19
--- OUTSIDE RECORDS SUMMARY | 2025-04-07 12:58 | XMS_ITS | Encounter Summary ---
Author Organization [employer] Address [address] [facility] 7 [place] [address] Care Team Providers Care Technical Developer Name Role Phone Henry Harvey MD Primary Care Prov ider Reason for Visit * Reason Comments Med Refill Encounter Details Date Type Department Care Team ([facility] Contact Info) Description 08/23/2024 Refill [facility] PEDS [address] [place] [address] Henry Harvey MD [address] [place] [address] Social History Tobacco Use Types Packs/Day Years [...] Description 04/21/2025 12:45 PM EST Office Visit [facility] ADULT DENTAL [address] [place] [address] [place], Ally [address] [place] [address] 05/13/2025 1:15 PM EST Office Visit [facility] PEDS [address] [place] [address] Henry Harvey MD [address] [place] [address] documented as of this encounter Visit Diagnoses Not on filedocumented in this encounter Additional Health Concerns Assessment Noted Time PHQ-9 Depression Total Score: 0 07/25/19 25 1:13 PM EST documented as of this encounter Care Teams Technical Developer Relationship Specialty Start Date End Date Henry Harvey MD [address] [place] [address] PCP - General Internal Medicine 10/27/19 documented as of this encounter
--- OUTSIDE RECORDS SUMMARY | 2025-04-07 12:58 | XMS_ITS | Encounter Summary ---
Author Organization [employer] Address [address] [place] [address] [address], [place] [address] Care Team Providers Care Health Care Facilities Inspector Name Role Phone Henry Harvey MD Primary Care Prov ider Encounter Details Date Type Department Care Team ([facility] Contact Info) Description 02/16/2023 Orders Only [facility] & PEDS [address] [place], [place] [phone] Henry Harvey MD [address] [place] [address] Mixed hyperlipidemia Social History Tobacco Use Types [...] Description 04/21/2025 12:45 PM EST Office Visit [facility] ADULT DENTAL [address] [place], [place] [phone] [place], Ally [address] [place], [place] [phone] 05/13/2025 1:15 PM EST Office Visit [facility] MED & PEDS [address] [place] [address] Henry Harvey MD [address] [place] [address] documented as of this encounter Visit Diagnoses Diagnosis Mixed hyperlipidemia documented in this encounter Additional Health Concerns Assessment Noted Time PHQ-9 Depression Total Score: 0 11/24/19 23 2:12 PM EDT documented as of this encounter Care Teams Health Care Facilities Inspector Relationship Specialty Start Date End Date Henry Harvey MD [address] [place] [address] PCP - General Internal Medicine 10/27/19 documented as of this encounter
--- OUTSIDE RECORDS SUMMARY | 2025-04-07 12:58 | XMS_ITS | Encounter Summary ---
Author Organization [employer] Address [address] [facility] 7 [place] [address] Care Team Providers Care Formal Wear Rental Clerk Name Role Phone Henry Harvey MD Primary Care Prov ider Encounter Details Date Type Department Care Team ([facility] Contact Info) Description 08/19/2024 Orders Only [facility] MED & PEDS [address] [place] [address] Henry Harvey MD [address] [place] [address] Social History Tobacco Use Types Packs/Day Years [...] your housing situation today? I have conrad concepicon 03/19/[address] you li [...] Description 04/21/2025 12:45 PM EST Office Visit [facility] ADULT DENTAL [address] [place] [address] [place], Ally [address] [place] [address] 05/13/2025 1:15 PM EST Office Visit [facility]C MED & PEDS [address] [place] [address] Henry Harvey MD [address] [place] [address] documented as of this encounter Visit Diagnoses Not on filedocumented in this encounter Additional Health Concerns Assessment Noted Time PHQ-9 Depression Total Score: 0 07/25/19 25 1:13 PM EST documented as of this encounter Care Teams Formal Wear Rental Clerk Relationship Specialty Start Date End Date Henry Harvey MD [address] [place] [address] PCP - General Internal Medicine 10/27/19 documented as of this encounter
--- OUTSIDE RECORDS SUMMARY | 2025-04-07 12:58 | XMS_ITS | Encounter Summary ---
Author Organization [employer] Address [address] [facility] 7 [place] [address] Care Team Providers Care Maintenance Technician 2Nd Shift Name Role Phone Henry Harvey MD Primary Care Prov ider Reason for Visit * Reason Comments Med Refill Encounter Details Date Type Department Care Team ([facility] Contact Info) Description 10/18/2024 Refill [facility] PED[facility] [address] [place] [address] Henry Harvey MD [address] [place] [address] Primary hypertension Social History Tobacco Use Types [...] Description 04/21/2025 12:45 PM EST Office Visit [facility] ADULT DENTAL [address] [place] [address] [place], Ally [address] [place] [address] 05/13/2025 1:15 PM EST Office Visit [facility] MED & PEDS [address] [place] [address] Henry Harvey MD [address] [place] [address] documented as of this encounter Visit Diagnoses Diagnosis Primary hypertension Unspecified essential hypertension documented in this encounter Additional Health Concerns Assessment Noted Time PHQ-9 Depression Total Score: 0 07/25/19 25 1:13 PM EST documented as of this encounter Care Teams Maintenance Technician 2Nd Shift Relationship Specialty Start Date End Date Henry Harvey MD [address] [place] [address] PCP - General Internal Medicine 10/27/19 documented as of this encounter
--- OUTSIDE RECORDS SUMMARY | 2025-04-07 12:58 | XMS_ITS | Encounter Summary ---
Author Organization [employer] Address [address] [place] [address] Care Team Providers Care Hard Tile Setter Apprentice Name Role Phone Henry Harvey MD Primary Care Prov ider Reason for Visit * Reason Onset Date Comments Reschedule 12/12/2022 Encounter Details Date Type Department Care Team ([facility] Contact Info) Description 12/12/2022 Telephone [facility] MED & PEDS [address] [place] [address] Henry Harvey MD [address] [place] [address] Reschedule Social History Tobacco Use Types Packs/Day [...] 11/08 derm f/u Please contact pt at [phone] documented in this encounter Plan of Treatment Upcoming Encounters Date Type Department Care Team ([facility] Contact Info) Description 04/21/2025 12:45 PM EST Office Visit [facility] ADULT DENTAL [address] [place] [address] [place], Ally [address] [place] [address] 05/13/2025 1:15 PM EST Office Visit [facility] MED [facility] PEDS [address] [place] [address] Henry Harvey MD [address] [place] [address] documented as of this encounter Visit Diagnoses Not on filedocumented in this encounter Additional Health Concerns Assessment Noted Time PHQ-9 Depression Total Score: 0 11/24/19 23 2:12 PM EDT documented as of this encounter Care Teams Hard Tile Setter Apprentice Relationship Specialty Start Date End Date Henry Harvey MD [address] [place] [address] PCP - General Internal Medicine 10/27/19 documented as of this encounter
--- OUTSIDE RECORDS SUMMARY | 2025-04-07 12:58 | XMS_ITS | Encounter Summary ---
Author Organization [employer] Address [address] [facility] 7 [place] [address] Care Team Providers Care Maintenance Of Way Supervisor Name Role Phone Henry Harvey MD Primary Care Prov ider Reason for Visit * Reason Comments Med Refill Encounter Details Date Type Department Care Team ([facility] Contact Info) Description 08/23/2024 Refill [facility] MED & PEDS [address] [place] [address] Henry Harvey MD [address] [place] [address] Social History Tobacco Use Types Packs/Day Years [...] Description 04/21/2025 12:45 PM EST Office Visit [facility] ADULT DENTAL [address] [place] [address] [place], Ally [address] [place] [address] 05/13/2025 1:15 PM EST Office Visit [facility] MED & PEDS [address] [place] [address] Henry Harvey MD [address] [place] [address] documented as of this encounter Visit Diagnoses Not on filedocumented in this encounter Additional Health Concerns Assessment Noted Time PHQ-9 Depression Total Score: 0 07/25/19 25 1:13 PM EST documented as of this encounter Care Teams Maintenance Of Way Supervisor Relationship Specialty Start Date End Date Henry Harvey MD [address] [place] [address] PCP - General Internal Medicine 10/27/19 documented as of this encounter
--- OUTSIDE RECORDS SUMMARY | 2025-04-07 12:58 | XMS_ITS | Encounter Summary ---
Author Organization [employer] Address [address] [facility] 7 [place] [address] Care Team Providers Care Endless Bed Drum Sander Name Role Phone Henry Harvey MD Primary Care Prov ider Reason for Visit * Reason Onset Date Comments Prior Authorization 10/16/2024 Encounter Details Date Type Department Care Team ([facility] Contact Info) Description 10/16/[address] [facility] MEDICINE [address] [place] [address] Henry Harvey MD [address] [place] [address] Prior Authorization Social History Tobacco Use Types [...] Description 04/21/2025 12:45 PM EST Office Visit [facility] ADULT DENTAL [address] [place] [address] [place], Ally [address] [place] [address] 05/13/2025 1:15 PM EST Office Visit [facility] CHC MED & PEDS [address] [place] [address] Henry Harvey MD [address] [place] [address] documented as of this encounter Visit Diagnoses Not on filedocumented in this encounter Additional Health Concerns Assessment Noted Time PHQ-9 Depression Total Score: 0 07/25/19 25 1:13 PM EST documented as of this encounter Care Teams Endless Bed Drum Sander Relationship Specialty Start Date End Date Henry Harvey MD [address] [place] [phone] PCP - General Internal Medicine 10/27/19 documented as of this encounter
--- OUTSIDE RECORDS SUMMARY | 2025-04-07 12:58 | XMS_ITS | Encounter Summary ---
Author Organization [employer] Address [address] [place] [address] Care Team Providers Care Hazardous Materials Waste Technician Name Role Phone Henry Harvey MD Primary Care Prov ider Encounter Details Date Type Department Care Team (Late Contact Info) Description 02/23/2023 Orders Only [facility] MEDICINE [address] [place] [address] Provider, MD Lina Social History Tobacco Use [...] Description 04/21/2025 12:45 PM EST Office Visit [facility] ADULT DENTAL [address] [place] [address] Thang Berumenaris [address] [place] [address] 05/13/2025 1:15 PM EST Office Visit [facility] CHC MED & PEDS [address] [place], [place] [phone] Henry Harvey MD [address] [place] [address] documented as of this encounter Procedures Procedure [...] documented as of this encounter Care Teams Hazardous Materials Waste Technician Relationship Specialty Start Date End Date McgillHenry Carmichael MD [address] [place] [address] PCP - General Internal Medicine 10/27/19 documented as of this encounter
--- OUTSIDE RECORDS SUMMARY | 2025-04-07 12:58 | XMS_ITS | Encounter Summary ---
Author Organization [employer] Address [address] [facility] 7 [place] [address] Care Team Providers Care Axle And Frame Mechanic Name Role Phone Henry Harvey MD Primary Care Prov ider Reason for Visit * Reason Comments Med Refill Encounter Details Date Type Department Care Team ([facility] Contact Info) Description 11/04/2023 Refill [facility] CHC MED & PEDS [address] [place] [address] Henry Harvey MD [address] [place] [address] Primary hypertension Social History Tobacco Use Types [...] Description 04/21/2025 12:45 PM EST Office Visit [facility] ADULT DENTAL [address] [place] [address] [place], Ally [address] [place] [address] 05/13/2025 1:15 PM EST Office Visit [facility] CHC MED & PEDS [address] [place] [address] Henry Harvey MD [address] [place] [address] documented as of this encounter Visit Diagnoses Diagnosis Primary hypertension Unspecified essential hypertension documented in this encounter Additional Health Concerns Assessment Noted Time PHQ-9 Depression Total Score: 0 11/24/19 23 2:12 PM EDT documented as of this encounter Care Teams Axle And Frame Mechanic Relationship Specialty Start Date End Date Henry Harvey MD [address] [place] [address] PCP - General Internal Medicine 10/27/19 documented as of this encounter
--- OUTSIDE RECORDS SUMMARY | 2025-04-07 12:58 | XMS_ITS | Clinical Summary ---
Author Organization [address] [facility] Address [address] [place] [address] Phone Care Team Providers Care Cut Off Machine Unloader Name Role Phone Henry Harvey Primary Care [...] diabetes mellitus wit h neurological manifestations, controlled ([facility] V24, [facility] V28) 03/22/2024 Back pain 08/01/2014 CTS (carpal tunnel syndrome) 08/01/2014 Obesity 08/01/2014 Hepatic steatosis 06/04/2014 Encounters Date Type Department Care Team Description 03/20/2025 1:30 PM EDT Office Visit Orth[facility] Surgery [place] [address] [phone] Fred Bolton DPM Exostosis of right foot (Primary Dx); Hammer toe of left foot; Acquired hammer toe of right foot; Dermatophytosis of nail; Verruca plantaris 02/11/2025 2:15 PM EDT Office Visit [facility] [place] [address] [phone] Fred Bolton DPM Exostosis of right foot (Primary Dx); Verruca plantaris; Hammer toe of left foot; Acquired hammer toe of right foot from Last 3 Months Immunizations Immunization Administration Dates Next Due Tdap Tetanus diptheria acell ular pertussis (Boostrix; Adacel) 7yo and older 05/02/2014 Medical History Medical History Date Comments Hypertension DX:Hypertension Diabetes ([facility] V24, [facility] V28) DX:Diabetes ([facility]) Hyperlipidemia DX:Hyperlipidemi a Diabetes mellitus type 2, uncontrolled DX:Diabetes mellitus type 2, uncontrolled Type 2 diabetes mellitus wit h neurological manifestations, controlled ([facility] V24, [facility] V28) DX:Type 2 diabetes mellitus with neurological manifestations, controlled ([facility]) Family History Medical History Relation Name Comments [...] Team (Late st Contact Info) Description 04/21/2025 2:15 PM EST Office Visit [facility] - [place] [address] [phone] Fred Bolton, DPM [address] [phone] Health Maintenance Due Date Last Done Comments Breast Cancer Screening 1974 Colorectal Cancer Screening: Colonoscopy 1974 Diabetes: Annual Foot Exam 1984 Diabetes: Annual Retina Eye Exam 1984 Pneumococcal Vaccine: 50+ Years (1 of 2 - PCV) 1993 Cervical Cancer Screening: Pap Smear 1995 Diabetes: Annual GFR (Glomerular Filtration Rate) 09/12/2015 09/11/2014 HIV Screening 05/01/2022 Social Influencers of Health Screening 05/01/2022 Diabetes: Annual Urine Albumin-Creatinine Ratio (uACR) 05/12/2022 09/11/2014 Hypertension/CHF/CAD Annual BMP Blood Test 05/12/2022 09/11/2014 RSV Immunization Adult Patients (1 - Risk 50-74 years 1-dose series) 2024 Zoster Vaccines (1 of 2) 2024 Depression Screening 05/29/2024 Diabetes: Blood Sugar Control Test (HGBA1C) 09/13/2024 03/15/2024, 09/11/2014 COVID-19 Vaccine (3 - season) 2025 01/06/2021, 12/16/2020 Influenza Vaccine (#1) 2025 9, 02/28/2018, 02/28/2017, Additional history exists Lung Cancer Screening (Low Dose CT) 02/28/2026 02/28/2025 DTaP,Tdap,and Td Vaccines (3 - Td or Tdap) 12/15/2026 12/15/2016, 05/02/2014 Cholesterol Screening (Lipid Panel) 03/15/2029 03/15/2024, 09/11/2014 Hepatitis A Vaccines Aged Out 01/21/2016, 02/14/20 [...] Results * Urine Albumin Creatinine Ratio (09/11/2014) [facility]ologist [facility] Urine Albumin Creatinine Ratio abstracted Result [facility] Provider [place] [employer] Final Result * Annual BMP Blood Test (09/11/2014) Pathologist Critical [facility] hospital Annual BMP Blood Test abstracted [facility] Provider [place] [employer] Final Result * (ABNORMAL) Hemoglobin A1c (09/11/2014) [facility] Hemoglobin A1C 6.7(A) 4.0 - 6.0 % Blood Venous blood specimen / Unknown Result [facility] Provider MD LAB BLOOD ORDERABLES Ary l Result * (ABNORMAL) Lipid panel (09/11/2014) Pathologist [facility] LDL/HDL Ratio 4 0 - 4 Triglycerides 182(A) 0 - 150 mg/dL Cholesterol 219(A) 0 - 200 mg/dL HDL 49 >=40 mg/dL LDL Cholesterol 134(A) 0 - 100 mg/dL Blood Venous blood specimen / Unknown Result [facility] Provider MD LAB BLOOD ORDERABLES Ary l Result from Last 3 Months or Most Recently Relevant to Health Maintenance Insurance MEDICAID - [place] Care Teams Cut Off Machine Unloader Relationship Specialty Start Date End Date Henry Harvey [address] [place], [place] PCP - General 01/17/24
--- OUTSIDE RECORDS SUMMARY | 2025-04-07 12:58 | XMS_ITS | Encounter Summary ---
Author Organization [employer] Address [address] [facility] 7 [place] [address] Care Team Providers Care Hotel General Manager Name Role Phone Henry Harvey MD Primary Care Prov ider Reason for Visit * Reason Comments Med Refill Encounter Details Date Type Department Care Team ([facility] Contact Info) Description 11/10/2023 Refill [facility] CHC MED & PEDS [address] [place] [address] Henry Harvey MD [address] [place] [address] Primary hypertension; Type 2 diabetes mellitus without complication, without long-term current use of insulin ([facility]) Social History Tobacco Use Types Packs/Day Years [...] Description 04/21/2025 12:45 PM EST Office Visit [facility] ADULT DENTAL [address] [place] [address] [place], Ally [address] [place] [address] 05/13/2025 1:15 PM EST Office Visit [facility] CHC MED & PEDS [address] [place] [address] Henry Harvey MD [address] [place] [address] documented as of this encounter Visit Diagnoses Diagnosis Primary hypertension Unspecified essential hypertension Type 2 diabetes mellitus without complication, without long-term current use of insulin (HCC) documented in this encounter Additional Health Concerns Assessment Noted Time PHQ-9 Depression Total Score: 0 11/24/19 23 2:12 PM EDT documented as of this encounter Care Teams Hotel General Manager Relationship Specialty Start Date End Date Henry Harvey MD [address] [place] [address] PCP - General Internal Medicine 10/27/19 documented as of this encounter
[2025-04-07 15:05] LABS: Alanine Aminotransferase 37 U/L (0-31); Albumin Level 4.1 g/dL (3.5-5.0); Alkaline Phosphatase 85 U/L (39-117); Anion Gap 13 (12-20); Aspartate Amino Transferase 38 U/L (5-31); Blood Urea Nitrogen 14 mg/dL (9-16); Calcium 8.7 mg/dL (8.4-10.2); Carbon Dioxide 24 mmol/L (22-29); Chloride 107 mmol/L (96-108); Cholesterol 155 mg/dL (<200); Estimated Glomerular Filt Rate > 60; HDL Cholesterol 31 mg/dL (>40); Potassium 3.5 mmol/L (3.3-5.1); Sodium 140 mmol/L (135-145); Total Protein 7.0 g/dL (6.5-8.0); Triglycerides 153 mg/dL (<150)
[2025-04-07 15:17] LABS: Microalbum/Creatinine Ratio Ur 10.4 ug/mg cr (<30)
== END 2025-04-07 10:51 | disposition home or self-care (01) ==
LOC: HO.CHCLDS 10:50
PROVIDERS: Visit Provider Internal Medicine
DX: E11.69 Type 2 diabetes mellitus with other specified complication (principal); E78.5 Hyperlipidemia, unspecified
CPT/HCPCS: 36415; 80053; 80061; 82043; 82570; 83036

== ENCOUNTER 2025-04-18 15:40 | Outpatient (AMB) | payer MEDICAID, SELFPAY ==
--- OUTSIDE RECORDS SUMMARY | 2025-04-18 15:42 | XMS_ITS | Encounter Summary ---
Author Organization [employer] Address [address] [facility] 7 [place] [address] Care Team Providers Care Solar System Designer Name Role Phone Henry Harvey MD Primary Care Prov ider Reason for Visit * Reason Onset Date Comments Prior Authorization 10/16/2024 Encounter Details Date Type Department Care Team ([facility] [address] Contact Info) Description 10/16/2024 Telephone [facility] MEDICINE [address] [place] [address] Henry Harvey MD [address] [place] [address] Prior Authorization Social History Tobacco Use Types [...] 12:45 PM EST Office Visit [facility] ADULT DENTAL [address] [place] [address] [place], Ally [address] [place] [address] 05/13/2025 1:15 PM EST Office Visit [facility] CHC MED & PEDS [address] [place] [address] Henry Harvey MD [address] [place] [address] documented as of this encounter Visit Diagnoses Not on filedocumented in this encounter Additional Health Concerns Assessment Noted Time PHQ-9 Depression Total Score: 0 07/25/19 25 1:13 PM EST documented as of this encounter Care Teams Solar System Designer Relationship Specialty Start Date End Date Henry Harvey MD [address] [place] [address] PCP - General Internal Medicine 10/27/19 documented as of this encounter
--- OUTSIDE RECORDS SUMMARY | 2025-04-18 15:42 | XMS_ITS | Encounter Summary ---
Author Organization [employer] Address [address] [facility] 7 [place] [address] Care Team Providers Care Digital Content Marketing Manager Name Role Phone Henry Harvey MD Primary Care Prov ider Reason for Visit * Reason Comments Med Refill Encounter Details Date Type Department Care Team ([facility] Contact Info) Description 01/13/2024 Refill [facility] CHC MED & PEDS [address] [place] [address] Henry Harvey MD [address] [place] [address] Primary hypertension Social History Tobacco Use Types [...] 12:45 PM EST Office Visit [facility] ADULT DENTAL [address] [place] [address] [place], Ally [address] [place] [address] 05/13/2025 1:15 PM EST Office Visit [facility] CHC MED & PEDS [address] [place] [address] Henry Harvey MD [address] [place] [address] documented as of this encounter Visit Diagnoses Diagnosis Primary hypertension Unspecified essential hypertension documented in this encounter Additional Health Concerns Assessment Noted Time PHQ-9 Depression Total Score: 0 11/24/19 23 2:12 PM EDT documented as of this encounter Care Teams Digital Content Marketing Manager Relationship Specialty Start Date End Date Henry Harvey MD [address] [place] [address] PCP - General Internal Medicine 10/27/19 documented as of this encounter
--- OUTSIDE RECORDS SUMMARY | 2025-04-18 15:42 | XMS_ITS | Encounter Summary ---
Author Organization [employer] Address [address] [place] [address] Care Team Providers Care Supervisor Burling And Joining Name Role Phone Henry Harvey MD Primary Care Prov ider Encounter Details Date Type Department Care Team (Latest Contact Info) Description 08/09/2018 Abstract [facility] CONVERSIONS Dental, Provider, DDS Social History Tobacco [...] Description 04/21/2025 12:45 PM EST Office Visit [facility] ADULT DENTAL [address] [place] [address] [place], Ally [address] [place] [address] 05/13/2025 1:15 PM EST Office Visit [facility] CHC MED & PEDS [address] [place] [address] Henry Harvey MD [address] [place], [place] [phone] documented as of this encounter Visit Diagnoses Not on filedocumented in this encounter Care Teams Supervisor Burling And Joining Relationship Specialty Start Date End Date Henry Harvey MD [address] [place] [address] PCP - General Internal Medicine 10/27/19 documented as of this encounter
--- OUTSIDE RECORDS SUMMARY | 2025-04-18 15:42 | XMS_ITS | Encounter Summary ---
Author Organization [employer] Address [address] [facility] 7 [place] [address] Care Team Providers Care Lehr Operator Name Role Phone Henry Harvey MD Primary Care Prov ider Reason for Visit * Reason Comments Med Refill Encounter Details Date Type Department Care Team ([facility] [address] Contact Info) Description 10/18/2024 Refill [facility] CHC MED & PEDS [address] [place] [address] Henry Harvey MD [address] [place] [address] Primary hypertension Social History Tobacco Use Types [...] Visit [facility] ADULT DENTAL [address] [place] [address] [place], Ally [address] [place] [address] 05/13/2025 1:15 PM EST Office Visit [facility] CHC MED & PEDS [address] [place] [address] Henry Harvey MD [address] [place] [address] documented as of this encounter Visit Diagnoses Diagnosis Primary hypertension Unspecified essential hypertension documented in this encounter Additional Health Concerns Assessment Noted Time PHQ-9 Depression Total Score: 0 07/25/19 25 1:13 PM EST documented as of this encounter Care Teams Lehr Operator Relationship Specialty Start Date End Date Henry Harvey MD [address] [place] [address] PCP - General Internal Medicine 10/27/19 documented as of this encounter
--- OUTSIDE RECORDS SUMMARY | 2025-04-18 15:42 | XMS_ITS | Encounter Summary ---
Author Organization [employer] Address [address] [place] [address], [place] [address] Care Team Providers Care Hopper Feeder Name Role Phone Henry Harvey MD Primary Care Prov ider Encounter Details Date Type Department Care Team ([facility] Contact Info) Description 02/16/2023 Orders Only [facility] CHC MED & PEDS [address] [place], [place] [phone] Henry Harvey MD [address] [place] [address] Mixed hyperlipidemia Social History Tobacco Use Types [...] Description 04/21/2025 12:45 PM EST Office Visit [facility] ADULT DENTAL [address] [place], [place] [phone] [place], Ally [address] [place], [place] [phone] 05/13/2025 1:15 PM EST Office Visit [facility] CHC MED & PEDS [address] [place] [address] Henry Harvey MD [address] [place] [address] documented as of this encounter Visit Diagnoses Diagnosis Mixed hyperlipidemia documented in this encounter Additional Health Concerns Assessment Noted Time PHQ-9 Depression Total Score: 0 11/24/19 23 2:12 PM EDT documented as of this encounter Care Teams Hopper Feeder Relationship Specialty Start Date End Date Henry Harvey MD [address] [place] [address] PCP - General Internal Medicine 10/27/19 documented as of this encounter
--- OUTSIDE RECORDS SUMMARY | 2025-04-18 15:42 | XMS_ITS | Clinical Summary ---
Author Organization [employer] Address [address] [place] [address] 7t [place] [address] Care Team Providers Care Campground Cleaning Attendant Name Role Phone Henry Harvey MD Primary [...] with persistant vaginal cyst, will refer to ob-housekeeper supervisor for evaluation Assessment & Plan (02/06/2023 3:42 [...] Eye exam booked for jul 24 at [facility] Assessment & Plan (04/27/2023 12:15 PM EST): [...] Department Care Team Description 02/28/2025 Orders Only [facility] External Provider, [facility] 02/15/2025 Refill [facility] [address] [place] [address] Henry Harvey MD from Last 3 Months Social History Tobacco [...] Office Visit [facility] [address] [place] [address] [place], Ally [address] [place] [address] 05/13/2025 1:15 PM EST Office Visit [facility] [address] [place], [place] [phone] Henry Harvey MD [address] [place], [place] [phone] Health Maintenance Due Date Last Done Comments CT Colonography 1974 Colonoscopy 1974 FIT DNA/Cologuard 1974 FOBT 1975 HIV Screening 1975 Sigmoidoscopy 1974 Disability Screening 1974 Diabetes: Foot Exam 1984 Family Planning (PISQ) 1989 Pneumococcal Vaccine: 50+ Years (1 of 2 - PCV) 1993 Colorectal Cancer Screening 03/18/2023 FIT 03/18/2023 03/18/2022 RSV Patients and Patients Aged 60 years or older (1 - Risk 50-74 years 1-dose series) 2024 Zoster Vaccines (1 of 2) 2024 Eye Exam 07/25/2024 Dental Oral Exam 09/13/2024 03/14/2024, , 02/01/2018, Additional history exists Mammogram 01/06/2025 01/06/2023, 09/2019, 08/01/2019, Additional history exists COVID-19 Vaccine ( - season) 2025 01/06/2021, 12/16/2020 Influenza Vaccine (#1) 2025 9, 02/28/2018, 02/28/2017, Additional history exists Dental X-Ray: Bitewings 03/15/2025 03/14/20 24, 02/14/2019, 02/01/2018, Additional history exists Dental Prophylaxis 04/11/2025 10/08/2024, 1 07/24/2023, 02/14/2019, Additional history exists Diabetes: Hemoglobin A1C 07/08/2025 025, 03/15/2024, 02/06/2023, Additional history exists Alcohol/Substance Use Screening 07/25/2025 07/25/2024 Depression Screening 07/25/2025 07/25/2024, 07/25/19 25 SDOH Screening 07/25/2025 07/25/2024 Tobacco Screening 10/08/2025 10/08/2024 Lung Cancer Screening 02/28/2026 02/28/2025 Diabetes: Urine Protein Screening 04/07/2026 04/07/2025, 02/06/2023, 09/18/2020 Lipid Panel 04/07/2026 04/07/2025, 02/26, 02/06/2023, Additional history exists Cervical Cancer Screening 12/15/2026 DTaP/Tdap/Td Vaccines (3 - Td or Tdap) 12/15/2026 12/15/2016, 05/02/2014 HPV/Cotest 12/15/2026 12/15/2021, 11/27, 04/06/2021 Pap Smear 12/15/2026 12/15/2021, 04/06/2021 Dental X-Ray: Full Mouth 03/15/2027 024, 02/14/2019, 03/19/2014 Hepatitis A Vaccines Completed 01/21/2016, 02/14/20 15 [...] Procedure Name Priority Date/Time Associated Diagnosis Comments ALBUMIN, RANDOM URINE W/CREATININE Routine 04/07/2025 10:58 AM EST Hyperlipidemia associated with type 2 diabetes mellitus (HCC) LIPID PANEL, STANDARD Routine 04/07/2025 10:52 AM EST Hyperlipidemia associated with type 2 diabetes mellitus (HCC) COMPREHENSIVE METABOLIC PANEL Routine 04/07/2025 10:52 AM EST Hyperlipidemia associated with type 2 diabetes mellitus (HCC) HEMOGLOBIN A1C Routine 04/07/2025 10:52 AM EST Hyperlipidemia associated with type 2 diabetes mellitus (HCC) LDCT LUNG SCREENING Routine 02/28/2025 1 0:39 AM EDT PROPHYLAXIS - ADULT Routine 10/08/2024 2 :00 PM EDT Staining of tooth Dental calculus Advanced periodontitis INTRAORAL - COMPLETE SERIES OF RADIOGRAPHIC IMAGES Routine 03/14/2024 1:00 PM EDT Advanced periodontitis Dental calculus Staining of teeth Acute gingival inflammation PERIODIC ORAL EVALUATION - ESTABLISHED PATIENT Routine 03/14/2024 1:00 PM EDT HEPATITIS C AB W/REFL TO HCV RNA, QN, PCR Routine 02/06/2023 3:56 PM EDT Type 2 diabetes mellitus with diabetic polyneuropathy, without long-term current use of insulin ([facility]/HCC) BI MAMMOGRAM SCREENING TOMOSYNTHESIS BILATERAL Routine 01/06/2023 11:30 AM EDT ZZZ HISTORICAL HPV E6/E7 RFLX LG 16 18/45 Routine 12/15/2021 1:36 PM EDT HM PAP/HPV Routine 12/15/2021 from Last 3 Months or Most Recently Relevant to Health Maintenance Results * Albumin, Random Urine W/Creatinine (04/07/2025 10:58 AM EST) Creatinine, Urine 162.56 mg/dL [facility] Microalbumin Urine 17.0 mg/L [facility] Microalbum Creatinine Ratio Ur 10.4 <30 ug/mg cr [facility] Comment:Albumin/Creatinine R atio Reference Ranges: Normal: < 30 ug/mg creatinine Microalbuminuria: 30 - 300 ug/mg creatinineClinical Albuminuria: > 300 ug/mg creatinine Urine (Urine, Random) 04/07/2025 10:58 AM EST 04/07/2025 2:32 PM EST Henry Fajardo MD LAB URINE ORDERABL ES Final Result [facility] [address] [place] [phone] * (ABNORMAL) Hemoglobin A1c (04/07/2025 10:52 AM EST) Hemoglobin A1c 9.1(H) <6.0 % [facility] Comment:Hemoglobin A1C Refer ence Range Adults: 4.8 - 6.0 % Non diabetic: < 6.0 % Goal: < 7.0 %Additional Action Suggested: > 8.0 %Note: Hemoglobin A1c results are invalid for patients with abnormal amounts of HbF. Blood transfusions may impact the HbA1c concentration in the patient sample. Estimated Average Glucose 214 mg/dL [facility] Comment:eAG = Estimated ave rage glucose which is %A1C expressed asaverage glucose, using the formula of the J3L-NurnjzyQzwidcl Glucose study (ADAG), Diabetes Care, Vol.31,#8,Dec. 2007 Blood Venous blood specimen / Unknown 04/07/2025 10:52 AM EST 04/07/2025 2:17 PM EST Henry Fajardo MD LAB BLOOD ORDERABL ES Final Result Performing Organization Address [facility]/ZIP Co de Phone Number [facility] [address] [place] [phone] * (ABNORMAL) Lipid Panel, Standard (04/07/2025 10:52 AM EST) Triglycerides 153(H) <150 mg/dL [facility] Comment:Desirable Triglyceri de: less than 150 mg/dLBorderline High Triglyceride 150-199 mg/dLHigh Triglyceride: 200-499 mg/dLVery High Triglyceride: greater than or equal to 5OO mg/dL Cholesterol 155 <200 mg/dL [facility] Comment:Desirable Cholestero l: less than 200 mg/dLBorderline High Cholesterol: 200-239 mg/dLHigh Cholesterol: greater than 239 mg/dL LDL Cholesterol Calculated 94 <100 mg/dL [facility] Comment:Desirable LDL: less than 100 mg/dLNear Optimal/Above Optimal LDL: 110- 129 mg/dLBorderline High LDL: 130-159 mg/dLHigh LDL: 160-189 mg/dLVery High LDL: greater than or equal to 190 mg/dL HDL Cholesterol 31(L) >40 mg/dL [facility] Comment:Desirable HDL: great er than 40 mg/dL Note: This HDL assay may give artificially low results in patients with liver disease. Blood Venous blood specimen / Unknown 04/07/2025 10:52 AM EST 04/07/2025 2:21 PM EST Henry Fajardo MD LAB BLOOD ORDERABL ES Final Result Performing Organization Address [facility]/ZIP Co de Phone Number [facility] [address] [place] [phone] * (ABNORMAL) Comprehensive Metabolic Panel (04/07/2025 10:52 AM EST) Sodium 140 135 - 145 mmol/L [facility] Potassium 3.5 3.3 - 5.1 mmol/L [facility] Chloride 107 96 - 108 mmol/L [facility] Carbon Dioxide 24 22 - 29 mmol/L [facility] Anion Gap 13 12 - 20 [facility] Urea Nitrogen (BUN) 14 9 - 16 mg/dL [facility] Creatinine, Serum 0.66 0.5 - 1.4 mg/dL [facility] Estimated Glomerular Filt Rate >60 [facility] Comment:Chronic Kidney Disea se: Estimated GFR < 60 mL/min/1.98r6Pdayog Kidney Disease: Estimated GFR < 15 mL/min/1.73m2 Glucose 207(H) 60 - 115 mg/dL [facility] Calcium 8.7 8.4 - 10.2 mg/dL [facility] Bilirubin, Total 0.3 0.0 - 1.0 mg/dL [facility] Aspartate Amino Transferase 38(H) 5 - 31 U/L [facility] Alanine Aminotransferase 37(H) 0 - 31 U/L [facility] Total Protein 7.0 6.5 - 8.0 g/dL [facility] Albumin Level 4.1 3.5 - 5.0 g/dL [facility] Alkaline Phosphatase 85 39 - 117 U/L [facility] Blood Venous blood specimen / Unknown 04/07/2025 10:52 AM EST 04/07/2025 2:21 PM EST us Henry Fajardo MD LAB BLOOD ORDERABL ES Final Result [facility] [address] [place] [phone] * CT Lung Screening Low dose (02/28/2025 10:39 AM EDT) Anatomical Region Laterality Modality Lung Computed Tomogra phy 02/28/2025 10:3 9 AM EDT Narrative 02/28/2025 11:12 AM EDT [place] [address] [address] Scan Report Signed Patient: Marie Cobos MR#: M [id number] : 1975 Acct:[id number] Age/Sex: 49 / F ADM Date: 02/28/25 Loc: HO.CT Attending Dr: Brandy Greenberg PA-C Ordering Physician: Brandy Greenberg PA-C Date of Service: 02/28/25 Procedure(s): CT lung screening Accession Number(s): [id number] cc: Henry Harvey MD; Brandy Greenberg PA-C Report Number: [id number]: Total DLP = 64.00 mGy-cm Reason for [...] for CT CHEST LOW DOSE CANCER SCREENING ([id number]) can be placed. Electronically signed by: Jerson Salvador MD 02/28/2025 11:09 AM EDT Dictated By: Jerson Salvador MD Signed By: <Electronically signed by Jerson Salvador MD in OV> 02/28/25 1109 DD/ 1039 TD/TT: 02/28/25 1054 Dealer Development Manager: Procedure Note Donotuseinterpreter, Image - 02/28/[address] [address] [address] Scan Report Signed Patient: Marie Cobos AMR#: [id number] : 1975Acct:[id number] Age/Sex: 49 / FADM Date: 02/28/25 Loc: HO.CT Attending Dr: Brandy Greenberg PA-C Ordering Physician: Brandy Greenberg PA-C Date of Service: 02/28/25 Procedure(s): CT lung screening Accession Number(s): [id number] cc: Henry Harvey MD; Brandy Greenberg PA-C Report Number: [id number]: Total DLP = 64.00 mGy-cm Reason for [...] for CT CHEST LOW DOSE CANCER SCREENING ([id number]) can be placed. Electronically signed by: Jerson Salvador MD 02/28/2025 11:09 AM EDT Dictated By: Jerson Salvador MD Signed By: <Electronically signed by Jerson Salvador MD in OV> 02/28/25 1109 DD/ 1039 TD/TT: 02/28/25 1054 Dealer Development Manager: [facility] External Provider IMG CT PROCEDURES Final Result * Hepatitis C Antibody with Reflex to HCV, RNA, Quantitative, Real-Time PCR (02/06/2023 3:56 PM EDT) Hepatitis C Antibody Nonreactive Nonreactive [facility] Comment:Antibodies to HCV no t detected; does not exclude early acuteHCV infection. Blood Venous blood specimen / Unknown 02/06/2023 3:56 PM EDT 02/06/2023 5:49 PM EDT Henry Fajardo MD LAB BLOOD ORDERABL ES Final Result [facility] [address] [place] [phone] * BI Mammogram Screening Tomosynthesis Bilateral (01/06/2023 11:30 AM EDT) Anatomical Region Laterality Modality Breast Bilateral Mammography 01/06/2023 11:3 0 AM EDT Narrative 01/09/2023 12:13 PM EDT [facility] [address] [place] [address] Mammography Report Signed Patient: Marie Cobos MR#: [id number] : 1975 Acct:[id number] Age/Sex: 47 / F ADM Date: 01/06/23 Loc: MAMMO Attending Dr: Henry Fajardo MD Ordering Physician: Henry Harvey MD Res ults: Date of Service: 01/06/23 Follow Up: Procedure(s): MM tomosynthesis screening BI Accession Number(s): [id number] cc: Henry Harvey MD EXAMINATION: MM SCREENING [...] in OV> 01/09/23 1210 DD/ 1130 TD/TT: Dealer Development Manager: Procedure Note Donotuseinterpreter, Image - 01/09/2023 [facility] [address] [place] [address] Mammography Report Signed Patient: Marie Cobos [facility]#: [id number] : 1975Acct:[id number] Age/Sex: 47 / FADM Date: 01/06/23 Loc: MAMMO Attending Dr: Henry Fajardo MD Ordering Physician: Henry Harvey ults: Date of Service: 01/06/23Follow Up: Procedure(s): MM tomosynthesis screening BI Accession Number(s): [id number] cc: Henry Harvey MD EXAMINATION: MM SCREENING [...] in OV> 01/09/23 1210 DD/ 1130 TD/TT: Dealer Development Manager: Henry Fajardo MD IMG BI PROCEDURES Final Result * HPV E6/E7 RFLX LG 16 18/45 (12/15/2021 1:36 PM EDT) HPV 16 RNA [facility] HPV 18/45 RNA [facility] HPV E6 E7 ADD [facility]NP [facility] HPV mRNA E6/E7 rflx Not Detected Not Detected [facility] Comment: Methodology: Advertising Designer-Mediated Amplification This assay detects E6/E7 viral messenger RNA (mRNA) from 14 high-risk HPV types (16,18,31,33,35,39,45,51,52,56,58,59,66,68). Cervical sources are required for HPV testing. If a vaginal source from a patient who has had a total hysterectomy with removal of cervix was submitted, please contact the testing laboratory for alternative testing options. For additional information, please refer to http://education.Keelvar/faq/XFS070s9 (This link if provided for information/ educational purposes only.) THIS TEST WAS PERFORMED AT: [facility] [address] [place] [address] [address]LO[address],[place] [phone] LAMINE PIMENTEL MD 12/15/2021 1:36 PM EDT Mina Alcantar MD HISTORICAL/NON ORDERABLE LABS Fi nal Result [facility] [address] * Pap Smear (12/15/2021) Historical Provider HEALTH MAINTENANCE Final Result from Last 3 Months or Most Recently Relevant to Health Maintenance Insurance [facility] C3 DENTAL-[facility] MEDICAID STAND ADULT Care Teams Campground Cleaning Attendant Relationship Specialty Start Date End Date McgillHenry Carmichael MD [address] [place] [phone] PCP - General Internal Medicine 10/27/19
--- OUTSIDE RECORDS SUMMARY | 2025-04-18 15:42 | XMS_ITS | Encounter Summary ---
Author Organization [employer] Address [address] [facility] 7 [place] [address] Care Team Providers Care Language Path Name Role Phone Henry Harvey MD Primary Care Prov ider Reason for Visit * Reason Onset Date Comments Prior Authorization 03/25/2024 Encounter Details Date Type Department Care Team ([facility] Contact Info) Description 03/25/2024 Telephone [facility] [address] [place] [address] Henry Harvey MD [address] [place] [address] Prior Authorization Social History Tobacco Use Types [...] Description 04/21/2025 12:45 PM EST Office Visit [facility] [address] [place] [address] [place], Ally [address] [place] [address] 05/13/2025 1:15 PM EST Office Visit [facility] [address] [place] [address] Henry Harvey MD [address] [place] [address] documented as of this encounter Visit Diagnoses Not on filedocumented in this encounter Additional Health Concerns Assessment Noted Time PHQ-9 Depression Total Score: 0 11/24/19 23 2:12 PM EDT documented as of this encounter Care Teams Language Path Relationship Specialty Start Date End Date Henry Harvey MD [address] [place] [phone] PCP - General Internal Medicine 10/27/19 documented as of this encounter
--- OUTSIDE RECORDS SUMMARY | 2025-04-18 15:42 | XMS_ITS | Encounter Summary ---
Author Organization [employer] Address [address] [place] [phone] Care Team Providers Care Technical Assistance Consultant Name Role Phone Henry Harvey MD Primary Care Prov ider Encounter Details Date Type Department Care Team (Late Contact Info) Description 02/23/2023 Orders Only [facility] [address] [place] [address] Provider, MD Lina Social History Tobacco Use [...] Description 04/21/2025 12:45 PM EST Office Visit [facility] ADULT DENTAL [address] [place] [address] Thang Berumenaris [address] [place] [address] 05/13/2025 1:15 PM EST Office Visit [facility] [address] [place], [place] [phone] Henry Harvey MD [address] [place] [address] documented as of this encounter Procedures Procedure [...] as of this encounter Care Teams Technical Assistance Consultant Relationship Specialty Start Date End Date McgillHenry Carmichael MD [address] [place] [address] PCP - General Internal Medicine 10/27/19 documented as of this encounter
--- OUTSIDE RECORDS SUMMARY | 2025-04-18 15:42 | XMS_ITS | Encounter Summary ---
Author Organization [employer] Address [address] [place] [address] Care Team Providers Care Placement Assistant Name Role Phone Henry Harvey MD Primary Care Prov ider Reason for Visit * Reason Onset Date Comments Reschedule 12/12/2022 Encounter Details Date Type Department Care Team ([facility] Contact Info) Description 12/12/2022 Telephone [facility] [address] [place] [address] Henry Harvey MD [address] [place] [address] Reschedule Social History Tobacco Use Types Packs/Day [...] 11/08 derm f/u Please contact pt at [phone] documented in this encounter Plan of Treatment Upcoming Encounters Date Type Department Care Team (Late st Contact Info) Description 04/21/2025 12:45 PM EST Office Visit [facility] ADULT DENTAL [address] [place] [address] [place], Ally [address] [place] [address] 05/13/2025 1:15 PM EST Office Visit [facility] [address] [place] [address] Henry Harvey MD [address] [place] [address] documented as of this encounter Visit Diagnoses Not on filedocumented in this encounter Additional Health Concerns Assessment Noted Time PHQ-9 Depression Total Score: 0 11/24/19 23 2:12 PM EDT documented as of this encounter Care Teams Placement Assistant Relationship Specialty Start Date End Date Henry Harvey MD [address] [place] [address] PCP - General Internal Medicine 10/27/19 documented as of this encounter
--- OUTSIDE RECORDS SUMMARY | 2025-04-18 15:42 | XMS_ITS | Encounter Summary ---
Author Organization [employer] Address [address] [facility] 7 [place] [address] Care Team Providers Care Hand Packer/Packager Name Role Phone Henry Harvey MD Primary Care Prov ider Reason for Visit * Reason Comments Med Refill Encounter Details Date Type Department Care Team ([facility] Contact Info) Description 11/10/2023 Refill [facility] [address] [place] [address] Henry Harvey MD [address] [place] [address] Primary hypertension; Type 2 diabetes mellitus without complication, without long-term current use of insulin ([facility]) Social History Tobacco Use Types Packs/Day [...] Description 04/21/2025 12:45 PM EST Office Visit [facility] ADULT D[facility] [address] [place] [address] [place], Ally [address] [place] [address] 05/13/2025 1:15 PM EST Office Visit [facility] [address] [place] [address] Henry Harvey MD [address] [place] [address] documented as of this encounter Visit Diagnoses Diagnosis Primary hypertension Unspecified essential hypertension Type 2 diabetes mellitus without complication, without long-term current use of insulin (HCC) documented in this encounter Additional Health Concerns Assessment Noted Time PHQ-9 Depression Total Score: 0 11/24/19 23 2:12 PM EDT documented as of this encounter Care Teams Hand Packer/Packager Relationship Specialty Start Date End Date Henry Harvey MD [address] [place] [address] PCP - General Internal Medicine 10/27/19 documented as of this encounter
--- OUTSIDE RECORDS SUMMARY | 2025-04-18 15:42 | XMS_ITS | Encounter Summary ---
Author Organization [employer] Address [address] [facility] 7 [place] [address] Care Team Providers Care Coal Pulverizing Operator Name Role Phone Henry Harvey MD Primary Care Prov ider Reason for Visit * Reason Comments Med Refill Encounter Details Date Type Department Care Team ([facility] Contact Info) Description 08/23/2024 Refill [facility] [address] [place] [address] Henry Harvey MD [address] [place] [address] Social History Tobacco Use Types Packs/Day Years [...] Description 04/21/2025 12:45 PM EST Office Visit [facility] ADULT DENTAL [address] [place] [address] [place], Ally [address] [place] [address] 05/13/2025 1:15 PM EST Office Visit [facility] [address] [place] [address] Henry Harvey MD [address] [place] [address] documented as of this encounter Visit Diagnoses Not on filedocumented in this encounter Additional Health Concerns Assessment Noted Time PHQ-9 Depression Total Score: 0 07/25/19 25 1:13 PM EST documented as of this encounter Care Teams Coal Pulverizing Operator Relationship Specialty Start Date End Date Henry Harvey MD [address] [place] [address] PCP - General Internal Medicine 10/27/19 documented as of this encounter
--- OUTSIDE RECORDS SUMMARY | 2025-04-18 15:42 | XMS_ITS | Clinical Summary ---
Author Organization [facility] Address [address] [place] [phone] Phone Care Team Providers Care Metal Die Finisher Name Role Phone Henry Harvey Primary Care [...] diabetes mellitus wit h neurological manifestations, controlled ([facility] V24, [facility] V28) 03/22/2024 Back pain 08/01/2014 CTS (carpal tunnel syndrome) 08/01/2014 Obesity 08/01/2014 Hepatic steatosis 06/04/2014 Encounters Date Type Department Care Team Description 03/20/2025 1:30 PM EDT Office Visit [facility] [place] [address] [phone] Fred Bolton DPM Exostosis of right foot (Primary Dx); Hammer toe of left foot; Acquired hammer toe of right foot; Dermatophytosis of nail; Verruca plantaris 02/11/2025 2:15 PM EDT Office Visit [facility] [place] [address] [phone] Fred Bolton DPM Exostosis of right foot (Primary Dx); Verruca plantaris; Hammer toe of left foot; Acquired hammer toe of right foot from Last 3 Months Immunizations Immunization Administration Dates Next Due Tdap Tetanus diptheria acell ular pertussis (Boostrix; Adacel) 7yo and older 05/02/2014 Medical History Medical History Date Comments Hypertension DX:Hypertension Diabetes ([facility] V24, [facility] V28) DX:Diabetes ([facility]) Hyperlipidemia DX:Hyperlipidemi a Diabetes mellitus type 2, uncontrolled DX:Diabetes mellitus type 2, uncontrolled Type 2 diabetes mellitus wit h neurological manifestations, controlled ([facility] V24, [facility] V28) DX:Type 2 diabetes mellitus with neurological manifestations, controlled ([facility]) Family History Medical History Relation Name Comments [...] PM EST Office Visit [facility] - [place] [address] [phone] Fred Bolton, DPM [address] [phone] Health Maintenance Due Date Last [...] * Urine Albumin Creatinine Ratio (09/11/2014) Pathologist [facility] Urine Albumin Creatinine Ratio abstracted Result [facility] Provider [place] HEALTH MAINTENANCE Final Result * Annual BMP Blood Test (09/11/2014) Pathologist [facility] Annual BMP Blood Test abstracted [facility] Provider [place] HEALTH MAINTENANCE Final Result * (ABNORMAL) Hemoglobin A1c (09/11/2014) [facility] Hemoglobin A1C 6.7(A) 4.0 - 6.0 % Blood Venous blood specimen / Unknown Result [facility] Provider MD LAB BLOOD ORDERABLES Ary l Result * (ABNORMAL) Lipid panel (09/11/2014) Pathologist [facility] LDL/HDL Ratio 4 0 - 4 Triglycerides 182(A) 0 - 150 mg/dL Cholesterol 219(A) 0 - 200 mg/dL HDL 49 >=40 mg/dL LDL Cholesterol 134(A) 0 - 100 mg/dL Blood Venous blood specimen / Unknown Result [facility] Provider MD LAB BLOOD ORDERABLES Ary l Result from Last 3 Months or Most Recently Relevant to Health Maintenance Insurance MEDICAID - [place] Care Teams Metal Die Finisher Relationship Specialty Start Date End Date Henry Harvey [address] [place], [place] PCP - General 01/17/24
--- OUTSIDE RECORDS SUMMARY | 2025-04-18 15:42 | XMS_ITS | Encounter Summary ---
Author Organization [employer] Address [address] [facility] 7 [place] [address] Care Team Providers Care Health Service Worker Name Role Phone Henry Harvey MD Primary Care Prov ider Reason for Visit * Reason Comments Med Refill Encounter Details Date Type Department Care Team ([facility] Contact Info) Description 11/04/2023 Refill [facility] CHC MED & PEDS [address] [place] [address] Henry Harvey MD [address] [place] [address] Primary hypertension Social History Tobacco Use Types [...] Description 04/21/2025 12:45 PM EST Office Visit [facility] ADULT DENTAL [address] [place] [address] [place], Ally [address] [place] [address] 05/13/2025 1:15 PM EST Office Visit [facility] CHC MED & PEDS [address] [place] [address] Henry Harvey MD [address] [place] [address] documented as of this encounter Visit Diagnoses Diagnosis Primary hypertension Unspecified essential hypertension documented in this encounter Additional Health Concerns Assessment Noted Time PHQ-9 Depression Total Score: 0 11/24/19 23 2:12 PM EDT documented as of this encounter Care Teams Health Service Worker Relationship Specialty Start Date End Date Henry Harvey MD [address] [place] [address] PCP - General Internal Medicine 10/27/19 documented as of this encounter
--- OUTSIDE RECORDS SUMMARY | 2025-04-18 15:42 | XMS_ITS | Encounter Summary ---
Author Organization [employer] Address [address] [facility] 7 [place] [address] Care Team Providers Care Plastics Fabricator Or Welder Name Role Phone Henry Harvey MD Primary Care Prov ider Reason for Visit * Reason Comments Med Refill Encounter Details Date Type Department Care Team ([facility] Contact Info) Description 08/23/2024 Refill [facility] CHC MED & PEDS [address] [place] [address] Henry Harvey MD [address] [place] [address] Social History Tobacco Use Types Packs/Day Years [...] Description 04/21/2025 12:45 PM EST Office Visit [facility] ADULT DENTAL [address] [place] [address] [place], Ally [address] [place] [address] 05/13/2025 1:15 PM EST Office Visit [facility] CHC MED & PEDS [address] [place] [address] Henry Harvey MD [address] [place] [address] documented as of this encounter Visit Diagnoses Not on filedocumented in this encounter Additional Health Concerns Assessment Noted Time PHQ-9 Depression Total Score: 0 07/25/19 25 1:13 PM EST documented as of this encounter Care Teams Plastics Fabricator Or Welder Relationship Specialty Start Date End Date Henry Harvey MD [address] [place] [address] PCP - General Internal Medicine 10/27/19 documented as of this encounter
--- OUTSIDE RECORDS SUMMARY | 2025-04-18 15:42 | XMS_ITS | Encounter Summary ---
Author Organization [employer] Address [address] [facility] 7 [place] [address] Care Team Providers Care Interventional Nurse Name Role Phone Henry Harvey MD Primary Care Prov ider Encounter Details Date Type Department Care Team ([facility] Contact Info) Description 08/19/2024 Orders Only [facility] CHC MED & PEDS [address] [place] [address] Henry Harvey MD [address] [place] [address] Social History Tobacco Use Types Packs/Day Years [...] Description 04/21/2025 12:45 PM EST Office Visit [facility] ADULT DENTAL [address] [place] [address] [place], Ally [address] [place] [address] 05/13/2025 1:15 PM EST Office Visit [facility] CHC MED & PEDS [address] [place] [address] Henry Harvey MD [address] [place] [address] documented as of this encounter Visit Diagnoses Not on filedocumented in this encounter Additional Health Concerns Assessment Noted Time PHQ-9 Depression Total Score: 0 07/25/19 25 1:13 PM EST documented as of this encounter Care Teams Interventional Nurse Relationship Specialty Start Date End Date Henry Harvey MD [address] [place] [address] PCP - General Internal Medicine 10/27/19 documented as of this encounter
--- NOTE | 2025-04-18 16:01 | MHC.OFFVIS ---
Intake Visit Reasons: PVR Follow Up Intake Note: Reason for Visit: PVR Urology Medication: Tolterodine,Myrbetriq Blood Thinners: Aspirin Imaging: None Last PSA: None Last PVR:none PVR: 54 Allergies No Known Allergies (No Known Allergies*) Allergy (Verified 07/03/24 15:35) HPI Comments Details: Marie is a female. She is a patient of Dr. Olivas. She is seen for the following urologic issues. - stress incontinence - overactive bladder - ANITA Six-month follow-up Myrbetriq has been successful Progressive diabetes on Jardiance. UA positive for glucose. Waking every 2-3 hours at night. - HbA1c 04/22 9.1 Two prior procedures for stress incontinence. At this point in time reports has recurred Given complicated neurourology history recommend urodynamics with follow-up with Dr. Roth for possible assessment of InterStim Management of diabetes is primary Stress incontinence Previously underwent mid urethral sling De Maria Elena urinary urgency and frequency - diabetes long standing - on gabapentin Responded previously to tolterodine ER 4 mg b.i.d. [facility] Medical History (Updated 04/18/25 @ 16:22 by Joe Crow MD) Nicotine dependence, cigarettes, uncomplicated Carpal tunnel syndrome, bilateral Urinary incontinence Diabetes mellitus Hyperlipidemia HTN (hypertension) Urgency incontinence Surgical History (Updated 01/02/25 @ 10:09 by Brandy Greenberg PA-C) History of pubovaginal sling H/O tubal ligation Family History Father Skin cancer Diabetes mellitus Mother Diabetes mellitus Social History (Updated 02/28/25 @ 10:29 by Brandy Greenberg PA-C) Household Members Other:: daughter Housing: House Alcohol intake: never Patient Tobacco Use Status: Current everyday Tobacco user Years Smoked: (onset 17yo, 1ppd x 32yrs, 30pyh) Review of Systems Const Denies chills and Denies fever(s) Card Reports no additional complaints and Denies syncope Resp Denies cough GI Denies abdominal pain and Denies heartburn Reports as per HPI and Denies change in libido Neuro Denies syncope Psych Denies change in libido Endo Denies change in libido Physical Exam Const General: cooperative, healthy appearing, comfortable and no acute distress Orientation/consciousness: patient oriented x3 HEENT Face and sinus: Yes normal facial exam Mouth: moist mucous membranes Neck Neck: Yes normal visual inspection, Yes full ROM and Yes trachea midline Chest Chest palpation & inspection: normal inspection of the chest Resp Effort & Inspection: normal respiratory effort, able to speak in complete sentences and no respiratory distress GI Inspection: Yes normal to inspection Back/Spine/Pelvis Cervical Spine: normal cervical lordosis Thoracic/Lumbar Spine: thoracic and lumbar spine normal to inspection Skin General skin exam: no rashes or lesions noted Neuro General: patient oriented x3, gait normal, tone normal and moves all extremities Extrem General: Yes normal to inspection and Yes capillary refill normal Office Procedures Post Void Residual Post Residual Void Post Void Residual (PVR): 54 [id number] Void Residual by ultrasound Assessment & Plan Assessment & Plan (1) Enuresis, nocturnal only: Code(s): N39.44 - Nocturnal enuresis Category: Medical Plan Continue Myrbetriq Orders: Orders AMB Post Void Residual by ultrasound 04/18/25 N39.41 - Urge incontinence Medications: Changed From mirabegron ER (Myrbetriq) 50 mg PO DAILY 30 tabs 1RF N32.81 - Overactive bladder To mirabegron ER (Myrbetriq) 50 mg PO DAILY 90 tabs 3RF 90 days N32.81 - Overactive bladder Refilled underpads As directed 2 nightly for incontinence 60 ea 3RF Patient Instructions: This note is constructed using voice recognition software. While every effort has been made to ensure accuracy business rules developer errors may have been included. Imaging studies, laboratory and physical exam results were discussed and reviewed in detail. No major barriers to patient understanding were identified. An opportunity to ask questions regarding the treatment plan was provided. All questions were answered. The patient expressed understanding and agreement with the above treatment plan. The patient is aware they should contact our office by phone for worsening of their current condition or the appearance of new urologic symptoms. Compliance is encouraged with any medications and followup testing that is ordered. It is a privilege to participate in the urologic care of your patient. If you have any questions or concerns regarding treatment for the above conditions, or other urologic issues, please do not hesitate to contact me. The office telephone contact is [phone]. Sincerely, Dr Joe Crow MD, MAXIMILIANO [facility] - Urology Compassionate Specialist Care for the Genitourinary System Coding Level of Care Code Complex visit Add On G2211 Diagnoses Enuresis, nocturnal only N39.44 CPT Codes Post Residual Void - PVR CPT Code: 00880-Kanr Void Residual by ultrasound ([id number])
== END 2025-04-18 16:28 | disposition home or self-care (01) ==
LOC: HO.HUSH 15:40
PROVIDERS: Visit Provider Urology
DX: N39.44 Nocturnal enuresis (principal)
CPT/HCPCS: 99213

== ENCOUNTER → 2025-04-18 15:40 | Outpatient (BNVA) | payer MEDICAID, SELFPAY | PROVIDERS: Visit Provider Urology | DX: N39.44 Nocturnal enuresis (principal); E11.9 Type 2 diabetes mellitus without complications; Z79.85 Long-term (current) use of injectable non-insulin antidiabetic drugs; Z98.890 Other specified postprocedural states; Z87.448 Personal history of other diseases of urinary system | CPT/HCPCS: 51798 ==

== ENCOUNTER 2025-04-22 13:56 | Outpatient (REF) | payer MEDICAID, SELFPAY ==
--- OUTSIDE RECORDS SUMMARY | 2025-04-21 12:45 | XMS_ITS | Encounter Summary ---
Author Organization [employer] Address [address] [place] [address] 7 [place] [address] Care Team Providers Care Inserting Press Operator Name Role Phone Henry Harvey MD Primary Care Prov ider Reason for Visit * Reason Comments Routine Cleaning Dental Exam Encounter Details Date Type Department Care Team (Latest Contact Info) Description 04/21/2025 12:45 PM EST Office Visit [facility] ADULT DENTAL [address] [place], [place] [phone] Thang Berumenaris [address] [place] [address] Stage 3 grade C generalized periodontitis per AAP/EFP 2017 classification (Primary Dx); Staining of teeth; Generalized gingival recession, moderate; Missing teeth, acquired Social History Tobacco Use Types Packs/Day Years Used Date Smoking Tobacco: Every Day Cigarettes 1 28 Passive Smoke Exposure: Current Smokeless Tobacco: Never Tobacco Cessation:Ready to Q [...] AM EDT documented as of this encounter Last Filed Vital Signs Vital Sign Reading Time Taken Comments Blood Pressure 132/76 04/21/2025 12:53 PM EST Pulse - - Temperature - - Respiratory Rate - - Oxygen Saturation - - Inhaled Oxygen Concentration - - Weight - - Height - - Body Mass Index - - documented in this encounter Progress Notes * Ally Berumen - 04/21/2025 12:45 PM EST Patient ID: Marie Hong is a 49 y.o. female. Time Out: Timeout Date: 04/21/25, Timeout Time: 1255 (X-rays, Bertha chart, P. exam, Prophy) Location: [facility] Tooth: Maxilla and Mandible Procedure: Exam, X-rays, Prophylaxis, and Perio chart Verified the above with patient, assistant auditor, and provider. Confirmed via patient's chart, intraorally and by radiographs. General Maintenance Helper: not applicable Medical Hx: Vitals: Blood pressure 132/76. Medications, Med Hx reviewed with patient and updated in chart. Treatment Provided Dental procedures in this visit D0274 - BITEWINGS - 4 RADIOGRAPHIC IMAGES (Completed) Service provider: Ally Berumen Billing provider: Russell Carlos DDS D0220 - INTRAORAL - PERIAPICAL FIRST RADIOGRAPHIC IMAGE (Completed) Service provider: Ally Berumen Billing provider: Russell Carlos DDS D0230 - INTRAORAL - PERIAPICAL EACH ADDITIONAL RADIOGRAPHIC IMAGE (Completed) Service provider: Ally Berumen Billing provider: Russell Carlos DDS D1110 - PROPHYLAXIS - ADULT (Completed) Service provider: Ally Berumen Billing provider: Russell Carlos DDS D9450 - CASE PRESENTATION, DETAILED AND EXTENSIVE TREATMENT PLANNING (Completed) Service provider: Ally Berumen Billing provider: Russell Carlos DDS D1330 - ORAL HYGIENE INSTRUCTIONS (Completed) Service provider: Ally Berumen Billing provider: SUMAN Munoz Dr. did P. Exam. 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 Oral hygiene instructions provided to patient including brushing technique and flossing. Recommendations: Butte two times daily, modified negron technique, Floss daily, Electric toothbrush, Soft bristle toothbrush, [place]te Tongue, Anti-sensitivity toothpaste. Recall Frequency: [address] Carlos and Mima Berumen RDH reminded Patient that she has advanced periodontitis and that it willbe best for her to see a calciner operator helper. Pt states not having the finances at this time to see periodontitis. NV: 6 months prophy Hygienist: Ally Berumen RDH * Russell Carlos DDS - 04/21/2025 12:45 PM EST Dental procedures in this visit D0274 - BITEWINGS - 4 RADIOGRAPHIC IMAGES (Completed) Service provider: Ally Berumen Billing provider: Russell Carlos DDS D0220 - INTRAORAL - PERIAPICAL FIRST RADIOGRAPHIC IMAGE (Completed) Service provider: Ally Berumen Billing provider: Russell Carlos DDS D0230 - INTRAORAL - PERIAPICAL EACH ADDITIONAL RADIOGRAPHIC IMAGE (Completed) Service provider: Ally Berumen Billing provider: Russell Carlos DDS D1110 - PROPHYLAXIS - ADULT (Completed) Service provider: Ally Berumen Billing provider: Russell Carlos DDS D9450 - CASE PRESENTATION, DETAILED AND EXTENSIVE TREATMENT PLANNING (Completed) Service provider: Ally Berumen Billing provider: Russell Carlos DDS D1330 - ORAL HYGIENE INSTRUCTIONS (Completed) Service provider: Ally Berumen Billing provider: Russell Carlos DDS D0120 - PERIODIC ORAL EVALUATION - ESTABLISHED PATIENT (Completed) Service provider: Russell Carlos DDS Billing provider: Russell Carlos DDS Patient ID: Marie Hong is a 49 y.o. female. Time Out: Timeout Date: 04/21/25, Timeout Time: 1255 (X-rays, Bertha chart, P. exam, Prophy) Location: [facility] Tooth: Maxilla and Mandible Procedure: Exam, X-rays, and Prophylaxis Verified the above with patient, assistant auditor, and provider. Confirmed via patient's chart, intraorally and by radiographs. General Maintenance Helper: not applicable Chief Complaint Patient presents with Routine Cleaning Dental Exam Medical Hx: Vitals: Blood pressure 132/76. Medical History[1] Medications: Encounter Medications[2] Objective HPI Asymptomatic at this time Head and Neck Exam: Lymph Nodes, Lips, Palate, Buccal Mucosa, Floor of Mouth, Tongue, Tonsils, Alveolar Ridges, Oropharynx, Salivary Ducts, and Vestibules Normal appearance Details: Skin NSF OCS: negative Dental Exam As charted Missing teeth acquired No new curious lesions noticed Periodontal disease Deep pockets Bone loss Reference tooth chart for additional findings. Oral Cancer Risk: Low Risk Oral Hygiene Instructions: Butte two times daily, modified negron technique, Floss daily, Electric toothbrush, Soft bristle toothbrush, [place] Tongue, Anti- sensitivity toothpaste, electric T.B. Caries Risk Assessment: Low- no risk factor Assessment/Plan HUMBERTO X ray Prophy Recommended calciner operator helper's consultation Patient tolerated procedure well, all questions answered and expressed understanding. Dismissed in good condition. NV: 6 mrc [employer] Clerk: Ally Berumen RDH Dentist: Russell Carlos DDS [1] Past Medical History: Diagnosis Date Diabetes mellitus (HCC) High cholesterol Hypertension Migraine Periodontal disease [2] Outpatient Encounter Medications as of 04/21/2025 Medication Sig Dispense Refill Acetaminophen Extra Strength 500 MG tablet TAKE 2 TABLETS BY MOUTH EVERY 8 HOURS IF NEEDED FOR MILDPAIN 120 tablet 0 amLODIPine (Norvasc) 5 MG tablet Take 1 tablet (5 mg) by mouth in the morning. 90 tablet 1 aspirin (Aspirin Low Dose) 81 MG EC tablet Take 1 tablet (81 mg) by mouth Once per day. 90 tablet 3 atorvastatin (Lipitor) 80 MG tablet Take 1 tablet (80 mg) by mouth Once per day. 90 tablet 3 Blood Glucose Monitoring Suppl (FreeStyle Lite) w/Device kit 1 kit Once per day. 1 kit 0 Calcium Carb-Cholecalciferol 600-10 MG-MCG tablet Take 1 tablet by mouth Once daily. 90 tablet 3 cetirizine (ZyrTEC) 10 MG tablet Take 1 tablet (10 mg) by mouth in the morning. 90 tablet 1 Dulaglutide (Trulicity) 3 MG/0.5ML solution auto-injector Inject 3 mg under the skin 1 (one) time per week. 2 mL 3 Dulaglutide (Trulicity) 4.5 MG/0.5ML solution auto-injector Inject 4.5 mg under the skin 1 (one) time per week. 2 mL 3 fluticasone (Flonase) 50 MCG/ACT nasal spray USE 1 SPRAY IN EACH NOSTRIL IN THE MORNING. SHAKE GENTLY. BEFORE FIRST USE, PRIME PUMP. AFTER USE, CLEAN TIP AND REPLACE CAP. 32 mL 1 gabapentin (Neurontin) 800 MG tablet TOME ANIL TABLETA LUISA VECES AL DRU 90 tablet 7 losartan-hydroCHLOROthiazide (Hyzaar) 100-25 MG tablet Take 1 tablet by mouth Once per day. 90 tablet 3 Mirabegron ER (Myrbetriq) 8 MG/ML Suspension Reconstituted ER Take 50 mg by mouth Once per day. naproxen (Naprosyn) 500 MG tablet TAKE 1 TABLET BY MOUTH TWICE A DAY IF NEEDED FOR MILD PAIN 60 tablet 0 topiramate (Topamax) 50 MG tablet Take 1 tablet (50 mg) by mouth Once per day. 90 tablet 1 [] FREESTYLE LITE test strip For glucose monitoring, check daily 100 each 12 No facility-administered encounter medications on file as of 04/21/2025. documented in this encounter Plan of Treatment Upcoming Encounters Date Type Department Care Team (Late st Contact Info) Description 05/13/2025 1:15 PM EST Office Visit [facility] CHC MED & PEDS [address] [place] [address] Henry Harvey MD [address] [place] [address] 10/21/2025 1:30 PM EDT Office Visit [facility] ADULT DENTAL [address] [place] [address] [place], Ally [address] [place] [address] Scheduled Orders Name Type Priority Associated Diagnoses Orde r Schedule Full Full PROPHYLAXIS - ADULT Dental Routine [address] arting 04/21/2025 documented as of this encounter Goals Goal Patient Goal Type Associated Problems Recent Progress Patient-Stated? Author Help patients manage their type 2 diabetes Care Plan Help patients manage their type 2 diabetes No [place], Ally Weekly blood pressure task Care Plan Weekly blood pressure task No [place], Ally Help patients manage their type 2 diabetes Care Plan Help patients manage their type 2 diabetes No [place], Ally Patient has chronic kidney disease Care Plan Patient has chronic kidney disease No [place], Ally Help patients manage their type 2 diabetes Care Plan Help patients manage their type 2 diabetes No [place], Ally Patient has diabetic neuropathy Care Plan Patient has diabetic neuropathy No [place], Ally Weekly blood pressure task Care Plan Weekly blood pressure task No [place], Ally Weekly blood pressure task Care Plan Weekly blood pressure task No [place], Ally Patient has chronic kidney disease Care Plan Patient has chronic kidney disease No [place], Ally Patient has chronic kidney disease Care Plan Patient has chronic kidney disease No [place], Ally Patient has diabetic neuropathy Care Plan Patient has diabetic neuropathy No [place], Ally Patient has diabetic neuropathy Care Plan Patient has diabetic neuropathy No [place], Ally documented as of this encounter Procedures Procedure Name Priority Date/Time Associated Diagnosis Comments PROPHYLAXIS - ADULT Routine 04/21/2025 1 2:45 PM EST Stage 3 grade C generalized periodontitis per AAP/EFP 2017 classification Staining of teeth Generalized gingival recession, moderate Missing teeth, acquired PERIODIC ORAL EVALUATION - ESTABLISHED PATIENT Routine 04/21/2025 12:45 PM EST ORAL HYGIENE INSTRUCTIONS Routine 04/21/2025 12:45 PM EST Stage 3 grade C generalized periodontitis per AAP/EFP 2017 classification Staining of teeth Generalized gingival recession, moderate Missing teeth, acquired INTRAORAL - PERIAPICAL FIRST RADIOGRAPHIC IMAGE Routine 04/21/2025 12:45 PM EST Stage 3 grade C generalized periodontitis per AAP/EFP 2017 classification Staining of teeth Generalized gingival recession, moderate Missing teeth, acquired INTRAORAL - PERIAPICAL EACH ADDITIONAL RADIOGRAPHIC IMAGE Routine 04/21/2025 12:45 PM EST Stage 3 grade C generalized periodontitis per AAP/EFP 2017 classification Staining of teeth Generalized gingival recession, moderate Missing teeth, acquired CASE PRESENTATION, DETAILED AND EXTENSIVE TREATMENT PLANNING Routine 04/21/2025 12:45 PM EST Stage 3 grade C generalized periodontitis per AAP/EFP 2017 classification Staining of teeth Generalized gingival recession, moderate Missing teeth, acquired BITEWINGS - 4 RADIOGRAPHIC IMAGES Routine 04/21/2025 12:45 PM EST Stage 3 grade C generalized periodontitis per AAP/EFP 2017 classification Staining of teeth Generalized gingival recession, moderate Missing teeth, acquired documented in this encounter Visit Diagnoses Diagnosis Stage 3 grade C generalized periodontitis per AAP/EFP 2017 classification- Primary Staining of teeth Generalized gingival recession, moderate Missing teeth, acquired documented in this encounter Additional Health Concerns Active Problems Noted Date Diagnosed Date Help patients manage their type 2 diabetes 04/21 Weekly blood pressure task 04/21/2025 Help patients manage their type 2 diabetes 04/21 Patient has chronic kidney disease 04/21/2025 Help patients manage their type 2 diabetes 04/21 Patient has diabetic neuropathy 04/21/2025 Weekly blood pressure task 04/21/2025 Weekly blood pressure task 04/21/2025 Patient has chronic kidney disease 04/21/2025 Patient has chronic kidney disease 04/21/2025 Patient has diabetic neuropathy 04/21/2025 Patient has diabetic neuropathy 04/21/2025 Assessment Noted Time PHQ-9 Depression Total Score: 0 07/25/19 1:13 PM EST documented as of this encounter Care Teams Inserting Press Operator Relationship Specialty Start Date End Date Henry Harvey MD [address] [place] [id number] PCP - General Internal Medicine 10/27/19 documented as of this encounter
--- OUTSIDE RECORDS SUMMARY | 2025-04-21 14:15 | XMS_ITS | Encounter Summary ---
Author Organization [facility] Address [address] [place] [address] Care Team Providers Care Cook Enchilada Name Role Phone Henry Harvey Primary Care Provide r Encounter Details Date Type Department Care Team (Late st Contact Info) Description 04/21/2025 2:15 PM EST Office Visit Orthopedic Surgery - [place] [address] [phone] Fred Bolton DPM [address] [phone] Right foot pain (Primary Dx); Exostosis of right foot; Hammer toe of left foot; Acquired hammer toe of right foot; Dermatophytosis of nail; Verruca plantaris; Diabetic mononeuropathy simplex ([facility] V24, [facility] V28) Social History Tobacco Use Types Packs/Day Years Used Date Smoking Tobacco: Every Day Cigarettes Alcohol Use Standard Drinks/Week Comments No 0 (1 standard drink = 0.6 oz pur e alcohol) Comments Unknown Sex and Gender Information Value Date Recorded Sex Assigned at Not on file Legal Sex Female 5:08 AM EST Gender Identity Not on file Sexual Orientation Not on file documented as of this encounter Progress Notes * Fred Bolton DPM - 04/21/2025 2:15 PM EST S Patient has a complaint of pain in her feet she reports that she is getting worsening pain discomfort of her left heel she states is getting callus buildup in that area she does note that she is typeII diabetic endorses numbness burning tingling to both feet notes that the calluses and wart formations left foot reports that she has had difficulty in care of it has not been compliant with topicalmedications including salicylic acid Patient to get x-rays today's appointment does not that her pain discomfort has been some improvement still getting callus buildup both feet Emirati interpretation services were offered patient declined ROS: GENERAL: Pt denies nausea, fever, vomiting, chills, or shortness of breath. Pt in NAD. CARDIOLOGY: pt denies chest pain, palpitations LUNGS: pt denies shortness of breath MUSCULOSKELETAL: See HPI, otherwise no joint pain or swelling, back pain, or muscle pain. SKIN: see HPI, otherwise no lesions, rash or itching NEURO: No persistent headache, weakness or numbness The remainder of the review of systems is noncontributory PAST MEDICAL HISTORY: Patient Active Problem List Diagnosis Code Hypertension I10 Type 2 diabetes mellitus with neurological manifestations, controlled (HCC) E11.49 Hyperlipidemia E78.5 Hepatic steatosis K76.0 CTS (carpal tunnel syndrome) G56.00 Obesity E66.9 Back pain M54.9 SOCIAL HISTORY: Social History Tobacco Use Smoking status: Every Day Packs/day: 1.00 Years: 27.00 Pack years: 27.00 Types: Cigarettes Smokeless tobacco: Not on file Substance Use Topics Alcohol use: No History Last Reviewed by Meena Reyes M.A. on 10/08/2014 at 10:20 AM Sections Reviewed Medical, Surgical, Family, Custom, Tobacco ACTIVE MEDICATIONS: Current Outpatient Medications Medication Sig Dispense Refill Salicylic Acid 40 % STICK Apply 1 Applicator topically daily. 1 Stick 0 metformin (GLUCOPHAGE) 1000 MG tablet take 1 tablet by mouth twice a day with meals 90 Tab 0 glipiZIDE (GLUCOTROL) 5 MG tablet take 1 tablet by mouth once daily 90 Tab 1 hydrochlorothiazide (HYDRODIURIL) 50 MG tablet take 1 tablet by mouth once daily 30 Tab 5 losartan (COZAAR) 100 MG tablet take 1 tablet by mouth once daily 30 Tab 5 simvastatin (ZOCOR) 20 MG tablet take 1 tablet by mouth at bedtime 30 Tab 5 gabapentin (NEURONTIN) 100 MG capsule Take 1 Cap by mouth 3 times daily. Take 1 cap by mouth 3 times tid for 5 days, then 2 cap tid for 5 days, then 3 cap tid 90 Cap 3 Fluorouracil 5 % Solution Apply 2 Drops topically daily. To the plantar wart 10 mL 3 ammonium lactate (AMLACTIN) 12 % cream Apply to dry skin twice weekly 385 g 3 omeprazole (PRILOSEC) 20 MG capsule Take 1 Cap by mouth daily. 30 Cap 5 naproxen (NAPROSYN) 500 MG tablet Take 1 Tab by mouth 2 times daily (with meals). 60 Tab 1 ranitidine (ZANTAC) 300 MG capsule Take 300 mg by mouth every evening. glucose blood test strips (FREESTYLE INSULINX TEST) strip 1 Strip by In Vitro route 2 times daily. FREESTYLE LANCETS 1 Strip by Does not apply route 2 times daily. Blood Pressure Monitoring (BLOOD PRESSURE CUFF) MISC 1 Each by Does not apply route daily. BP cuff for home monitoring 1 Each 0 No current facility-administered medications for this visit. ALLERGIES: Patient has no known allergies. PHYSICAL EXAM: Height 5' 2 (1.575 m), weight 208 lb 6.4 oz (94.5 kg). Estimated body mass index is 38.12 kg/m?? as calculated from the following: Height as of this encounter: 5' 2 (1.575 m). Weight as of this encounter: 208 lb 6.4 oz (94.5 kg). PODIATRIC EXAMINATION: GENERAL: Patient appears well nourished, with NAD. VASCULAR: Dorsalis pedis pulses are 2/4 bilaterally and Posterior tibial pulses are 2/4 bilaterally. Capillary filling time within normal limits the digits. No pallor on elevation or rubor on dependency. Positive hair growth. No varicosities. Denies rest pain or claudication pain. NEUROLOGICAL: Sharp/dull sensation altered , protective sensation intact 10/10 with 5.07 semmes harshal bilaterally, vibratory sensation with tuning fork intact to the tibial tuberosity. ORTHOPEDIC: Good muscle strength 5/5 of all flexors and extensors. Dorsi flexion of ankle ,10 degrees, plantar flexion WNL. No muscle atrophy. DERMATOLOGICAL:.Abnormal skin formation outer aspect of left foot deep central core pain with lateral compression Nails are thickened discolored x 10 Hyperkeratotic tissue right heel Palpable heterotrophic bone calcaneus right BIOMECHANICS: STJ ROM wnl, MTJ ROM wnl, 1st MPJ ROM wnl. Fat pad atrophy bilaterally with palpationof metatarsal heads 2 3 and 4 left Hammertoe contracture 2 through 5 bilateral worse fourth bilateral IMAGING: IMPRESSION: 1. Right foot pain CANCELED: XR Foot 3+ Views Right 2. Exostosis of right foot 3. Hammer toe of left foot 4. Acquired hammer toe of right foot 5. Dermatophytosis of nail 6. Verruca plantaris 7. Diabetic mononeuropathy simplex ([facility] V24, [facility] V28) PLAN: Pt was seen and examined, history reviewed. Radiographs reviewed patient detail discussed pedal deformities with relatively normal radiographs without acute findings Discussed with patient regarding proper glucose control, exercise, and diet. Explained to patient proper shoe gear, and importance of daily foot checks. I reviewed neuropathy and why it occurs in diabetics. I educated the patient on proper blood sugar control and the importance of an HgBA1c of less than 7.0%. I reviewed the signs and symptoms of neuropathy with the patient Treatment options verrucous plantaris were discussed and reviewed including definitive diagnosis with biopsy Discussed with patient concerns for biopsy as it may lead to scar tissue formation but would have surgical cure and definitive diagnosis patient declined Would recommend destructive procedures patient is willing to proceed Hammertoe contracture deformities were discussed and reviewed treatment options were discussed including wear shoe care silicone toe sleeves tubular gauze can use ammonium lactate topically previously prescribed to help soften thickened skin On radiographs hammertoe contracture forms very mild without significant contractures Discussed reviewed possible benefits of biopsy which I would recommend patient states he is hesitant to pursue she is worried to the risk of wound formation being a diabetic Follow-up in 1 month [id number]: Destruction of Plantar Verrucae: Verbal informed consent was obtained from the patient. Debrided wart(s) with a scalpel. Aggressive debridement dermal curette and 15 scalpel blade followed by chemical destruction and cauterization with silver nitrate sticks. Fred Bolton DPM documented in this encounter Plan of Treatment Upcoming Encounters Date Type Department Care Team (Late st Contact Info) Description 05/27/2025 2:45 PM EST Office Visit Orthopedic Surgery - [place] [address] [phone] Fred Bolton DPM [address] [phone] documented as of this encounter Visit Diagnoses Diagnosis Right foot pain- Primary Pain in soft tissues of limb Exostosis of right foot Hammer toe of left foot Acquired hammer toe of right foot Dermatophytosis of nail Verruca plantaris Plantar wart Diabetic mononeuropathy simplex (CMS/HCC V24, CMS/HCC V28) Type II or unspecified type diabetes mellitus with neurological manifestations, not stated as uncontrolled documented in this encounter Care Teams Cook Enchilada Relationship Specialty Start Date End Date Henry Harvey [address] [place] [address] PCP - General 01/17/24 documented as of this encounter
--- NOTE | ~2025-04-22 | MM_ITS ---
EXAMINATION: MM SCREENING DIGITAL BREAST TOMOSYNTHESIS, BILATERAL CLINICAL INFORMATION: Screening. Asymptomatic. COMPARISON: Mammography: Comparison is made with available priors TECHNIQUE: Digital breast mammography with tomosynthesis is performed in both the craniocaudal and mediolateral oblique views along with computer-aided detection (CAD). FINDINGS: There are scattered areas of fibroglandular density. Left: Asymmetry superior breast middle depth on MLO view. No suspicious calcifications or other abnormal findings. Right: There are no significant masses, abnormal calcifications, or other abnormalities. MM/MM tomosynthesis screening BI IMPRESSION: Additional imaging is recommended ASSESSMENT: BI-RADS Category 0: Incomplete - Need additional Imaging Evaluation RECOMMENDATION: 1. Additional views of the left breast. 2. Targeted ultrasound if warranted after review of the additional views. 3. Radiology department staff will contact the patient for additional imaging. Additional Imaging required Electronically signed by: Tere Peralta DO 04/28/2025 11:07 AM HARI
--- OUTSIDE RECORDS SUMMARY | 2025-04-22 17:50 | XMS_ITS | Encounter Summary ---
Author Organization [employer] Address [address] [facility] 7 [place] [address] Care Team Providers Care Home Service Advisor Name Role Phone Henry Harvey MD Primary Care Prov ider Reason for Visit * Reason Onset Date Comments Prior Authorization 03/25/2024 Encounter Details Date Type Department Care Team ([facility] Contact Info) Description 03/25/2024 Telephone [facility] MEDICINE [address] [place] [address] Henry Harvey MD 505 [place] [address] Prior Authorization Social History Tobacco Use Types [...] Description 05/13/2025 1:15 PM EST Office Visit [facility] CHC MED & PEDS [address] [place] [address] Henry Harvey MD 505 [place] [address] 10/21/2025 1:30 PM EDT Office Visit [facility] ADULT DENTAL [address] [place] [address] [place], Ally [address] [place] [address] documented as of this encounter Visit Diagnoses Not on filedocumented in this encounter Additional Health Concerns Assessment Noted Time PHQ-9 Depression Total Score: 0 11/24/19 23 2:12 PM EDT documented as of this encounter Care Teams Home Service Advisor Relationship Specialty Start Date End Date Henry Harvey MD 505 [place] [address] PCP - General Internal Medicine 10/27/19 documented as of this encounter
--- OUTSIDE RECORDS SUMMARY | 2025-04-22 17:50 | XMS_ITS | Encounter Summary ---
Author Organization [employer] Address [address] [facility] 7 [place] [address] Care Team Providers Care Racing Manager Name Role Phone Henry Harvey MD Primary Care Prov ider Reason for Visit * Reason Comments Med Refill Encounter Details Date Type Department Care Team ([facility] Contact Info) Description 01/13/[address] [facility] CHC MED & PEDS [address] [place] [address] Henry Harvey MD [address] [place] [address] Primary hypertension Social History Tobacco Use Types [...] 1:15 PM EST Office Visit [facility] CHC MED & PEDS [address] [place] [address] Henry Harvey MD [address] [place] [address] 10/21/2025 1:30 PM EDT Office Visit [facility] ADULT DENTAL [address] [place] [address] [place], Ally [address] [place] [address] documented as of this encounter Visit Diagnoses Diagnosis Primary hypertension Unspecified essential hypertension documented in this encounter Additional Health Concerns Assessment Noted Time PHQ-9 Depression Total Score: 0 11/24/19 23 2:12 PM EDT documented as of this encounter Care Teams Racing Manager Relationship Specialty Start Date End Date Henry Harvey MD [address] [place] [address] PCP - General Internal Medicine 10/27/19 documented as of this encounter
--- OUTSIDE RECORDS SUMMARY | 2025-04-22 17:51 | XMS_ITS | Encounter Summary ---
Author Organization [employer] Address [address] [facility] 7 [place] [address] Care Team Providers Care Laborer Marine Terminal Name Role Phone Henry Harvey MD Primary Care Prov ider Encounter Details Date Type Department Care Team ([facility] Contact Info) Description 08/19/2024 Orders Only [facility] CHC MED & PEDS [address] [place] [address] Henry Harvey MD 505 [place] [address] Social History Tobacco Use Types Packs/Day Years [...] Description 05/13/2025 1:15 PM EST Office Visit [facility] CHC MED & PEDS [address] [place] [address] Henry Harvey MD 505 [place] [address] 10/21/2025 1:30 PM EDT Office Visit [facility] ADULT DENTAL 230 [place] [address] [place], Ally [address] [place] [address] documented as of this encounter Visit Diagnoses Not on filedocumented in this encounter Additional Health Concerns Assessment Noted Time PHQ-9 Depression Total Score: 0 07/25/19 25 1:13 PM EST documented as of this encounter Care Teams Laborer Marine Terminal Relationship Specialty Start Date End Date Henry Harvey MD 505 [place] [address] PCP - General Internal Medicine 10/27/19 documented as of this encounter
--- OUTSIDE RECORDS SUMMARY | 2025-04-22 17:51 | XMS_ITS | Encounter Summary ---
Author Organization [employer] Address [address] [place] [address] Care Team Providers Care Podiatry Professor Name Role Phone Henry Harvey MD Primary Care Prov ider Encounter Details Date Type Department Care Team ([facility] Contact Info) Description 02/16/2023 Orders Only [facility] MED & PEDS [address] [place], [place] [phone] Henry Harvey MD [address] [place], [place] [phone] Mixed hyperlipidemia Social History Tobacco Use Types [...] Upcoming Encounters Date Type Department Care Team ([facility] Contact Info) Description 05/13/2025 1:15 PM EST Office Visit [facility] MED & PEDS [address] [place], [place] [phone] Henry Harvey MD 505 [place], [place] [phone] 10/21/2025 1:30 PM EDT Office Visit [facility] ADULT DENTAL 230 [place], [place] [phone] Thang Berumenaris 230 [place], [place] [phone] documented as of this encounter Visit Diagnoses Diagnosis Mixed hyperlipidemia documented in this encounter Additional Health Concerns Assessment Noted Time PHQ-9 Depression Total Score: 0 11/24/19 23 2:12 PM EDT documented as of this encounter Care Teams Podiatry Professor Relationship Specialty Start Date End Date Henry Harvey MD [address] [place] [address] PCP - General Internal Medicine 10/27/19 documented as of this encounter
--- OUTSIDE RECORDS SUMMARY | 2025-04-22 17:51 | XMS_ITS | Clinical Summary ---
Author Organization 175 [facility] Address 175 [place] [address] Phone Care Team Providers Care Sports Management Internship Name Role Phone Henry Harvey Primary Care [...] diabetes mellitus wit h neurological manifestations, controlled ([facility] V24, [facility] V28) 03/22/2024 Back pain 08/01/2014 CTS (carpal tunnel syndrome) 08/01/2014 Obesity 08/01/2014 Hepatic steatosis 06/04/2014 Encounters Date Type Department Care Team Description 04/21/2025 2:15 PM EST Office Visit Orthopedic Surgery [place] [address] [phone] Fred Bolton DPM Right foot pain (Primary Dx); Exostosis of right foot; Hammer toe of left foot; Acquired hammer toe of right foot; Dermatophytosis of nail; Verruca plantaris; Diabetic mononeuropathy simplex ([facility] V24, [facility] V28) 03/20/2025 1:30 PM EDT Office Visit Orthopedic Surgery [facility] [address] [phone] Fred Bolton DPM Exostosis of right foot (Primary Dx); Hammer toe of left foot; Acquired hammer toe of right foot; Dermatophytosis of nail; Verruca plantaris 02/11/2025 2:15 PM EDT Office Visit Orthopedic Surgery [facility] [address] [phone] Fred Bolton DPM Exostosis of right foot (Primary Dx); Verruca plantaris; Hammer toe of left foot; Acquired hammer toe of right foot from Last 3 Months Immunizations Immunization Administration Dates Next Due Tdap Tetanus diptheria acell ular pertussis (Boostrix; Adacel) 7yo and older 05/02/2014 Medical History Medical History Date Comments Hypertension DX:Hypertension Diabetes ([facility] V24, [facility] V28) DX:Diabetes ([facility]) Hyperlipidemia DX:Hyperlipidemi a Diabetes mellitus type 2, uncontrolled DX:Diabetes mellitus type 2, uncontrolled Type 2 diabetes mellitus wit h neurological manifestations, controlled ([facility] V24, [facility] V28) DX:Type 2 diabetes mellitus with neurological manifestations, controlled ([facility]) Family History Medical History Relation [...] PM EST Office Visit Orthopedic Surgery - [place] [address] [phone] Fred Bolton DPM [address] [phone] Health Maintenance Due Date Last Done Comments Breast Cancer Screening 1974 Colorectal Cancer Screening: Colonoscopy 1974 Diabetes: Annual Foot Exam 1984 Diabetes: Annual Retina Eye Exam 1984 Pneumococcal Vaccine: 50+ Years (1 of 2 - PCV) 1993 Cervical Cancer Screening: Pap Smear 1995 HIV Screening 05/01/2022 Social Influencers of Health Screening 05/01/2022 Diabetes: Annual Urine Albumin-Creatinine Ratio (uACR) 05/12/2022 09/11/2014 RSV Immunization Adult Patients (1 - Risk 50-74 years 1-dose series) 2024 Zoster Vaccines (1 of 2) 2024 Depression Screening 05/29/2024 COVID-19 Vaccine ( season) 2025 01/06/2021, 12/16/2020 Influenza Vaccine (#1) 2025 9, 02/28/2018, 02/28/2017, Additional history exists Diabetes: Blood Sugar Control Test (HGBA1C) 10/05/2025 04/07/2025, 03/15/2024, 09/11/2014 Lung Cancer Screening (Low Dose CT) 02/28/2026 02/28/2025 Diabetes: Annual GFR (Glomerular Filtration Rate) 04/07/2026 04/07/2025, 09/11/2014 Hypertension/CHF/CAD Annual BMP Blood Test 04/07/2026 04/07/2025, 09/11/2014 DTaP,Tdap,and Td Vaccines (3 - Td or Tdap) 12/15/2026 12/15/2016, 05/02/2014 Cholesterol Screening (Lipid Panel) 04/07/2030 04/07/2025, 03/15/2024, 09/11/2014 Hepatitis A Vaccines Aged Out [...] Procedure Name Priority Date/Time Associated Diagnosis Comments XR FOOT 3+ VIEWS RIGHT Routine 04/21/2025 2:14 PM EST Bilateral foot pain URINE ALBUMIN CREATININE RATIO Routine 09/11/2014 ANNUAL BMP BLOOD TEST Routine 09/11/2014 HEMOGLOBIN A1C Routine 09/11/2014 LIPID PANEL Routine 09/11/2014 from Last 3 Months or Most Recently Relevant to Health Maintenance Results * XR Foot 3+ Views Right (04/21/2025 2:14 PM EST) Anatomical Region Laterality Modality Lower Extremities, Foot Right Computed Radiography Narrative 04/21/2025 6:40 PM EST Right foot 3 views No fracture. No radiopaque foreign joint spaces normal Foot position rectus Normal talus navicular position normal calcaneal inclination normal symes line talus navicular joint to calcaneal cuboid joint Left foot 3 views No fracture. No radiopaque foreign joint spaces normal Foot position rectus Normal talus navicular position normal calcaneal inclination normal symes line talus navicular joint to calcaneal cuboid joint Fred Bolton DPM IMG XR PROCEDURES Final R esult * Urine Albumin Creatinine Ratio (09/11/2014) Urine Albumin Creatinine Ratio abstracted Historical Provider MD HEALTH MAINTENANCE Final Result * Annual BMP Blood Test (09/11/2014) HM Annual BMP Blood Test abstracted Historical Provider HEALTH MAINTENANCE Final Result * (ABNORMAL) Hemoglobin A1c (09/11/2014) Hemoglobin A1C 6.7(A) 4.0 - 6.0 % Blood Venous blood specimen / Unknown [facility] Provider LAB BLOOD ORDERABLES Ary l Result * (ABNORMAL) Lipid panel (09/11/2014) LDL/HDL Ratio 4 0 - 4 Triglycerides 182(A) 0 - 150 mg/dL Cholesterol 219(A) 0 - 200 mg/dL HDL 49 >=40 mg/dL LDL Cholesterol 134(A) 0 - 100 mg/dL Blood Venous blood specimen / Unknown [facility] Provider LAB BLOOD ORDERABLES Ary l Result from Last 3 Months or Most Recently Relevant to Health Maintenance Insurance MEDICAID - [place] Care Teams Sports Management Internship Relationship Specialty Start Date End Date Henry Harvey [address] [place], [place] PCP - General 01/17/24
--- OUTSIDE RECORDS SUMMARY | 2025-04-22 17:51 | XMS_ITS | Encounter Summary ---
Author Organization [employer] Address [address] [place] [address] 7 [place] [address] Care Team Providers Care Paper Goods Machine Set Up Operator Name Role Phone Henry Harvey MD Primary Care Prov ider Reason for Visit * Reason Comments Med Refill Encounter Details Date Type Department Care Team ([facility] Contact Info) Description 08/23/2024 Refill [facility] CHC MED & PEDS [address] [place] [address] Henry Harvey MD [address] [place] [address] Social History Tobacco Use Types Packs/Day Years [...] Description 05/13/2025 1:15 PM EST Office Visit [facility] CHC MED & PEDS [address] [place] [address] Henry Harvey MD 505 [place] [address] 10/21/2025 1:30 PM EDT Office Visit [facility] ADULT DENTAL [address] [place] [address] [place], Ally [address] [place] [address] documented as of this encounter Visit Diagnoses Not on filedocumented in this encounter Additional Health Concerns Assessment Noted Time PHQ-9 Depression Total Score: 0 07/25/19 25 1:13 PM EST documented as of this encounter Care Teams Paper Goods Machine Set Up Operator Relationship Specialty Start Date End Date Henry Harvey MD [address] [place] [address] PCP - General Internal Medicine 10/27/19 documented as of this encounter
--- OUTSIDE RECORDS SUMMARY | 2025-04-22 17:51 | XMS_ITS | Clinical Summary ---
Author Organization [facility] Address [address] [facility] [address] [place] [phone] Phone Care Team Providers Care Accounting Consultant Name Role Phone Henry Harvey MD [...] MG tabletIndicatio ns:Menorrhagia with irregular cycle TOME ANIL TABLETA TODOS LOS BUNN 30 tablet 3 [...] EXAM 03/08/2022 10/08/2014 BLOOD PRESSURE 12/27/2022 06/29/2022 RSV VACCINE (1 - Risk 50-74 years 1-dose series) 2024 ZOSTER VACCINES (1 of 2) 2024 Adult Td,Tdap Booster 05/02/2024 05/02/2014 INFLUENZA VACCINE (#1) 2024 COVID-19 VACCINE (1 - 2024-2 6 season) 2025 HEPATITIS A VACCINES Aged Out [...] topic Medical Devices Not on file Insurance [facility] C3 ACO C3 ACO C3 ACO C3 ACO C3 ACO C3 [employer]CO [place] [place] [address] [place] [address] [place] [address] [place] [address] C3 ACO Care Teams Accounting Consultant Relationship Specialty Start Date End Date Henry Harvey MD [address] [place] [address] PCP - General Internal Medicine 02/16/22 Additional Source Comments The information contained in this document represents components of the legal health record. It is not the complete legal health record.[facility]
--- OUTSIDE RECORDS SUMMARY | 2025-04-22 17:51 | XMS_ITS | Encounter Summary ---
Author Organization [employer] Address [address] [facility] 7 [place] [address] Care Team Providers Care Agronomy Instructor Name Role Phone Henry Harvey MD Primary Care Prov ider Reason for Visit * Reason Onset Date Comments Prior Authorization 10/16/2024 Encounter Details Date Type Department Care Team ([facility] Contact Info) Description 10/16/2024 Telephone [facility] MEDICINE [address] [place] [address] Henry Harvey MD [address] [place] [address] Prior Authorization Social History Tobacco Use Types [...] Description 05/13/2025 1:15 PM EST Office Visit [facility] CHC MED & PEDS [address] [place] [address] Henry Harvey MD [address] [place] [address] 10/21/2025 1:30 PM EDT Office Visit [facility] ADULT DENTAL [address] [place] [address] [place] Ally [address] [place] [address] documented as of this encounter Visit Diagnoses Not on filedocumented in this encounter Additional Health Concerns Assessment Noted Time PHQ-9 Depression Total Score: 0 07/25/19 25 1:13 PM EST documented as of this encounter Care Teams Agronomy Instructor Relationship Specialty Start Date End Date Henry Harvey MD [address] [place] [id number] PCP - General Internal Medicine 10/27/19 documented as of this encounter
--- OUTSIDE RECORDS SUMMARY | 2025-04-22 17:51 | XMS_ITS | Encounter Summary ---
Author Organization [employer] Address [address] [place] [address] Care Team Providers Care Telephonic Rn Name Role Phone Henry Harvey MD Primary Care Prov ider Encounter Details Date Type Department Care Team (Latest Contact Info) Description 08/09/2018 Abstract [facility] Dental, Provider, DDS Social History Tobacco [...] 05/13/2025 1:15 PM EST Office Visit [facility] CHC MED & PEDS [address] [place] [address] Henry Harvey MD [address] [place] [address] 10/21/2025 1:30 PM EDT Office Visit [facility] ADULT DENTAL [address] [place], [place] [phone] [place], Ally [address] [place] [address] documented as of this encounter Visit Diagnoses Not on filedocumented in this encounter Care Teams Telephonic Rn Relationship Specialty Start Date End Date Henry Harvey MD [address] [place], [place] [phone] PCP - General Internal Medicine 10/27/19 documented as of this encounter
--- OUTSIDE RECORDS SUMMARY | 2025-04-22 17:51 | XMS_ITS | Encounter Summary ---
Author Organization [employer] Address [address] [facility] 7 [place] [address] Care Team Providers Care Front Desk Clerk Name Role Phone Henry Harvey MD Primary Care Prov ider Reason for Visit * Reason Comments Med Refill Encounter Details Date Type Department Care Team ([facility] Contact Info) Description 10/18/2024 Refill [facility] CHC MED & PEDS [address] [place] [address] Henry Harvey MD [address] [place] [address] Primary hypertension Social History Tobacco Use Types [...] Description 05/13/2025 1:15 PM EST Office Visit [facility] CHC MED & PEDS [address] [place] [address] Henry Harvey MD [address] [place] [address] 10/21/2025 1:30 PM EDT Office Visit [facility] ADULT DENTAL [address] [place] [address] [place], Ally [address] [place] [address] documented as of this encounter Visit Diagnoses Diagnosis Primary hypertension Unspecified essential hypertension documented in this encounter Additional Health Concerns Assessment Noted Time PHQ-9 Depression Total Score: 0 07/25/19 25 1:13 PM EST documented as of this encounter Care Teams Front Desk Clerk Relationship Specialty Start Date End Date Henry Harvey MD [address] [place] [address] PCP - General Internal Medicine 10/27/19 documented as of this encounter
--- OUTSIDE RECORDS SUMMARY | 2025-04-22 17:51 | XMS_ITS | Encounter Summary ---
Author Organization [employer] Address [address] [facility] 7 [place] [address] Care Team Providers Care Hairspring Truing Inspector Name Role Phone Henry Harvey MD Primary Care Prov ider Reason for Visit * Reason Comments Med Refill Encounter Details Date Type Department Care Team ([facility] Contact Info) Description 11/10/2023 Refill [facility] CHC MED & PEDS [address] [place] [address] Henry Harvey MD [address] [place] [address] Primary hypertension; Type 2 diabetes mellitus without complication, without long-term current use of insulin ([facility]) Social History Tobacco Use Types Packs/Day [...] Description 05/13/2025 1:15 PM EST Office Visit [facility] CHC MED & PEDS [address] [place] [address] Henry Harvey MD [address] [place] [address] 10/21/2025 1:30 PM EDT Office Visit [facility] ADULT DENTAL [address] [place] [address] [place], Ally [address] [place] [address] documented as of this encounter Visit Diagnoses Diagnosis Primary hypertension Unspecified essential hypertension Type 2 diabetes mellitus without complication, without long-term current use of insulin (HCC) documented in this encounter Additional Health Concerns Assessment Noted Time PHQ-9 Depression Total Score: 0 11/24/19 23 2:12 PM EDT documented as of this encounter Care Teams Hairspring Truing Inspector Relationship Specialty Start Date End Date Henry Harvey MD [address] [place] [address] PCP - General Internal Medicine 10/27/19 documented as of this encounter
--- OUTSIDE RECORDS SUMMARY | 2025-04-22 17:51 | XMS_ITS | Encounter Summary ---
Author Organization [employer] Address [address] [place] [address] Care Team Providers Care Station Examiner Name Role Phone Henry Harvey MD Primary Care Prov ider Reason for Visit * Reason Onset Date Comments Reschedule 12/12/2022 Encounter Details Date Type Department Care Team ([facility] Contact Info) Description 12/12/2022 Telephone [facility] CHC MED & PEDS [address] [place] [address] Henry Harvey MD [address] [place] [address] Reschedule Social History Tobacco Use Types Packs/Day [...] 11/08 derm f/u Please contact pt at [phone] documented in this encounter Plan of Treatment Upcoming Encounters Date Type Department Care Team (Late st Contact Info) Description 05/13/2025 1:15 PM EST Office Visit [facility] CHC MED & PEDS [address] [place] [address] Henry Harvey MD [address] [place], [place] [phone] 10/21/2025 1:30 PM EDT Office Visit [facility] ADULT DENTAL [address] [place], [place] [phone] [place], Ally [address] [place], [place] [phone] documented as of this encounter Visit Diagnoses Not on filedocumented in this encounter Additional Health Concerns Assessment Noted Time PHQ-9 Depression Total Score: 0 11/24/19 23 2:12 PM EDT documented as of this encounter Care Teams Station Examiner Relationship Specialty Start Date End Date Henry Harvey MD [address] [place] [address] PCP - General Internal Medicine 10/27/19 documented as of this encounter
--- OUTSIDE RECORDS SUMMARY | 2025-04-22 17:51 | XMS_ITS | Encounter Summary ---
Author Organization [employer] Address [address] [facility] 7 [place] [address] Care Team Providers Care Trade Analyst Name Role Phone Henry Harvey MD Primary Care Prov ider Reason for Visit * Reason Comments Med Refill Encounter Details Date Type Department Care Team ([facility] Contact Info) Description 11/04/2023 Refill [facility] CHC MED & PEDS [address] [place] [address] Henry Harvey MD [address] [place] [address] Primary hypertension Social History Tobacco Use Types [...] 05/13/2025 1:15 PM EST Office Visit [facility] CHC MED & PEDS [address] [place] [address] Henry Harvey MD [address] [place] [address] 10/21/2025 1:30 PM EDT Office Visit [facility] ADULT DENTAL [address] [place] [address] [place], Ally [address] [place] [address] documented as of this encounter Visit Diagnoses Diagnosis Primary hypertension Unspecified essential hypertension documented in this encounter Additional Health Concerns Assessment Noted Time PHQ-9 Depression Total Score: 0 11/24/19 23 2:12 PM EDT documented as of this encounter Care Teams Trade Analyst Relationship Specialty Start Date End Date Henry Harvey MD [address] [place] [address] PCP - General Internal Medicine 10/27/19 documented as of this encounter
--- OUTSIDE RECORDS SUMMARY | 2025-04-22 17:51 | XMS_ITS | Encounter Summary ---
Author Organization [employer] Address [address] [place] [address] [address] [place] [address] Care Team Providers Care Turner Machine Name Role Phone Henry Harvey MD Primary Care Prov ider Reason for Visit * Reason Comments Med Refill Encounter Details Date Type Department Care Team ([facility] Contact Info) Description 08/23/2024 Refill [facility] CHC MED & PEDS [address] [place] [address] Henry Harvey MD [address] [place] [address] Social History Tobacco Use Types Packs/Day Years [...] Description 05/13/2025 1:15 PM EST Office Visit [facility] CHC MED & PEDS [address] [place] [address] Henry Harvey MD [address] [place] [address] 10/21/2025 1:30 PM EDT Office Visit [facility] ADULT DENTAL [address] [place] [address] [place], Ally [address] [place] [address] documented as of this encounter Visit Diagnoses Not on filedocumented in this encounter Additional Health Concerns Assessment Noted Time PHQ-9 Depression Total Score: 0 07/25/19 25 1:13 PM EST documented as of this encounter Care Teams Turner Machine Relationship Specialty Start Date End Date Henry Harvey MD [address] [place] [address] PCP - General Internal Medicine 10/27/19 documented as of this encounter
--- OUTSIDE RECORDS SUMMARY | 2025-04-22 17:51 | XMS_ITS | Encounter Summary ---
Author Organization [employer] Address [address] [place] [address] Care Team Providers Care Highway Technician Name Role Phone Henry Harvey MD Primary Care Prov ider Encounter Details Date Type Department Care Team (Late Contact Info) Description 02/23/2023 Orders Only [facility] MEDICINE [address] [place] [address] ProviderLina MD Social History Tobacco Use Types Packs/Day Years [...] Department Care Team (Late Contact Info) Description 05/13/2025 1:15 PM EST Office Visit [facility] CHC MED & PEDS [address] [place], [place] [phone] Henry Harvey MD [address] [place], [place] [phone] 10/21/2025 1:30 PM EDT Office Visit [facility] ADULT DENTAL [address] [place] [address] [place] Ally [address] [place] [address] documented as of this encounter Procedures Procedure [...] documented as of this encounter Care Teams Highway Technician Relationship Specialty Start Date End Date Henry Harvey MD [address] [place] [address] PCP - General Internal Medicine 10/27/19 documented as of this encounter
--- OUTSIDE RECORDS SUMMARY | 2025-04-22 17:51 | XMS_ITS | Clinical Summary ---
Author Organization [employer] Address [address] [place] [address] [address] [place] [address] Care Team Providers Care Base Filler Name Role Phone Henry Harvey MD Primary Care Prov ider Allergies No known active allergies Medications fluticasone (Flonase) 50 MCG/ACT nasal sprayIndications:Se asonal allergies USE 1 SPRAY IN EACH NOSTRIL IN THE MORNING. SHAKE GENTLY. BEFORE FIRST USE, PRIME PUMP. AFTER USE, CLEAN TIP AND REPLACE CAP. 32 mL 1 3 Active gabapentin (Neurontin) 800 MG tablet TOME ANIL TABLETA LUISA VECES AL DRU 90 tablet 7 4 Active Mirabegron ER (Myrbetriq) 8 MG/ML Suspension Reconstituted ER Take 50 mg by mouth Once per day. Active Blood Glucose Monitoring Suppl (FreeStyle Lite) w/Device kit 1 kit Once per day. 1 kit 4 Active Calcium Carb-Cholecalcifero l 600-10 MG-MCG tabletIndications:O steopenia of lumbar spine Take 1 tablet by mouth Once daily. 90 tablet 3 4 Active losartan-hydroCHLOR Othiazide (Hyzaar) 100-25 MG tabletIndications:P rimary hypertension Take 1 tablet by mouth Once per day. 90 tablet 3 5 07/25/19 26 Active Acetaminophen Extra Strength 500 MG tablet TAKE 2 TABLETS BY MOUTH EVERY 8 HOURS IF NEEDED FOR MILD PAIN 120 tablet 5 Active Dulaglutide (Trulicity) 3 MG/0.5ML solution auto-injector Inject 3 mg under the skin 1 (one) time per week. 2 mL 3 5 10/18/19 26 Active amLODIPine (Norvasc) 5 MG tabletIndications:P rimary hypertension Take 1 tablet (5 mg) by mouth in the morning. 90 tablet 1 5 Active atorvastatin (Lipitor) 80 MG tabletIndications:M ixed hyperlipidemia Take 1 tablet (80 mg) by mouth Once per day. 90 tablet 3 5 11/13/19 26 Active cetirizine (ZyrTEC) 10 MG tabletIndications:C hronic rhinitis Take 1 tablet (10 mg) by mouth in the morning. 90 tablet 1 5 Active aspirin (Aspirin Low Dose) 81 MG EC tablet Take 1 tablet (81 mg) by mouth Once per day. 90 tablet 3 5 11/13/19 26 Active Dulaglutide (Trulicity) 4.5 MG/0.5ML solution auto-injector Inject 4.5 mg under the skin 1 (one) time per week. 2 mL 3 5 Active topiramate (Topamax) 50 MG tablet Take 1 tablet (50 mg) by mouth Once per day. 90 tablet 1 5 Active naproxen (Naprosyn) 500 MG tablet TAKE 1 TABLET BY MOUTH TWICE A DAY IF NEEDED FOR MILD PAIN 60 tablet 5 Active FREESTYLE LITE test strip For glucose monitoring, check daily 100 each 12 4 04/18/20 25 Active Problems Problem Noted Date Diagnosed Date Stage 3 grade C generalized periodontitis per AAP/EFP 2017 classification 04/21/2025 Generalized gingival recession, moderate 025 Missing teeth, acquired 04/21/2025 Mixed hyperlipidemia 11/12/2024 Assessment & Plan (03/10/2025 [...] with persistant vaginal cyst, will refer to ob-offshore wind turbine technician for evaluation Assessment & Plan (02/06/2023 3:42 [...] Eye exam booked for jul 24 at [facility] & Plan (04/27/2023 12:15 PM EST): On [...] 2:51 PM EDT): Controlled, last results as [id number]/79-127/80, on losartan/hctz 100/25 and amlodipine 5mg, reinforced low sodium diet and exercise as tolerated, she refers has been losing weight. Migraine 02/28/2018 Mood disorder 02/28/2018 Back pain 08/01/2014 Hepatic steatosis 06/04/2014 Encounters Date Type Department Care Team Description 04/21/2025 12:45 PM EST Office Visit [facility] [address] [place] [address] Thang Berumenaris Stage 3 grade C generalized periodontitis per AAP/EFP 2017 classification (Primary Dx); Staining of teeth; Generalized gingival recession, moderate; Missing teeth, acquired 02/28/2025 Orders Only [facility] External Provider, [facility] 02/15/2025 Refill [facility] [address] [place] [address] Henry Harvey MD from Last 3 Months [...] Pressure 132/76 04/21/2025 12:53 PM EST Pulse 84 03/19/2024 2:44 PM EDT Temperature [...] Description 05/13/2025 1:15 PM EST Office Visit [facility] [address] [place] [address] Henry Harvey MD [address] [place] [address] 10/21/2025 1:30 PM EDT Office Visit [facility] [address] [place] [address] [place], Ally [address] [place] [address] Health Maintenance Due Date Last Done Comments [...] (1 of 2) 2024 Eye Exam 07/25/2024 Mammogram 01/06/2025 01/06/2023, 03/0 09/2019, 08/01/2019, Additional history exists COVID-19 Vaccine (3 - season) 2025 01/06/2021, 12/16/2020 Influenza Vaccine (#1) 2025 9, 02/28/2018, 02/28/2017, Additional history exists Diabetes: Hemoglobin A1C 07/08/2025 025, 03/15/2024, 02/06/2023, Additional history exists Alcohol/Substance Use Screening 07/25/2025 07/25/2024 Depression Screening 07/25/2025 07/25/2024, 07/25/19 SDOH Screening 07/25/2025 07/25/2024 Dental Oral Exam 10/20/2025 04/21/2025, , 02/14/2019, Additional history exists Dental Prophylaxis 10/20/2025 04/21/2025, 0 10/08/2024, 05/23/2024, Additional history exists Lung Cancer Screening 02/28/2026 02/28/2025 Diabetes: Urine Protein Screening 04/07/2026 04/07/2025, 02/06/2023, 09/18/2020 Lipid Panel 04/07/2026 04/07/2025, 02/26, 02/06/2023, Additional history exists Tobacco Screening 04/21/2026 04/21/2025 Dental X-Ray: Bitewings 04/22/2026 04/21/20 25, 03/14/2024, 02/14/2019, Additional history exists Cervical Cancer Screening 12/15/2026 [...] on patient's age to complete this topic Goals Goal Patient Goal Type Associated Problems Recent Progress Patient-Stated? Author Help patients manage their type 2 diabetes Care Plan Help patients manage their type 2 diabetes No [place] Weekly blood pressure task Care Plan Weekly [...] Care Plan Patient has diabetic neuropathy No Ally Berumen Procedures Procedure Name Priority Date/Time Associated Diagnosis Comments PERIODIC ORAL EVALUATION - ESTABLISHED PATIENT Routine [...] Generalized gingival recession, moderate Missing teeth, acquired PROPHYLAXIS - ADULT Routine 04/21/2025 1 2:45 [...] Generalized gingival recession, moderate Missing teeth, acquired ALBUMIN, RANDOM URINE W/CREATININE Routine 04/07/2025 10:58 [...] SCREENING Routine 02/28/2025 1 0:39 AM EDT INTRAORAL - COMPLETE SERIES OF RADIOGRAPHIC IMAGES Routine 03/14/2024 1:00 PM EDT Advanced periodontitis Dental calculus Staining of teeth Acute gingival inflammation HEPATITIS C AB W/REFL TO HCV RNA, [...] 10:58 AM EST) Creatinine, Urine 162.56 mg/dL [facility] Microalbumin Urine 17.0 mg/L [facility] Microalbum Creatinine Ratio Ur 10.4 <30 ug/mg cr [facility] Comment:Albumin/Creatinine R atio Reference Ranges: Normal: < 30 ug/mg creatinine Microalbuminuria: 30 - 300 ug/mg creatinineClinical Albuminuria: > 300 ug/mg creatinine Urine (Urine, Random) 04/07/2025 10:58 AM EST 04/07/2025 2:32 PM EST us Henry Fajardo MD LAB URINE ORDERABL ES Final Result [facility] [address] [place] [phone] * (ABNORMAL) Hemoglobin A1c (04/07/2025 10:52 AM EST) Hemoglobin A1c 9.1(H) <6.0 % [facility] Comment:Hemoglobin A1C Refer ence Range Adults: 4.8 - 6.0 % Non diabetic: < 6.0 % Goal: < 7.0 %Additional Action Suggested: > 8.0 %Note: Hemoglobin A1c results are invalid for patients with abnormal amounts of HbF. Blood transfusions may impact the HbA1c concentration in the patient sample. Estimated Average Glucose 214 mg/dL [facility] Comment:eAG = Estimated ave rage glucose which is %A1C expressed asaverage glucose, using the formula of the E9Y-YtiyudjFtktckb Glucose study (ADAG), Diabetes Care, Vol.31,#8,Dec. 2007 Blood Venous blood specimen / Unknown 04/07/2025 10:52 AM EST 04/07/2025 2:17 PM EST us Henry Fajardo MD LAB BLOOD ORDERABL ES Final Result [facility] [address] [place] [phone] * (ABNORMAL) Lipid Panel, Standard (04/07/2025 10:52 AM EST) Triglycerides 153(H) <150 mg/dL [facility] Comment:Desirable Triglyceri de: less than 150 mg/dLBorderline High Triglyceride 150-199 mg/dLHigh Triglyceride: 200-499 mg/dLVery High Triglyceride: greater than or equal to 5OO mg/dL Cholesterol 155 <200 mg/dL [facility] Comment:Desirable Cholestero l: less than 200 mg/dLBorderline High Cholesterol: 200-239 mg/dLHigh Cholesterol: greater than 239 mg/dL LDL Cholesterol Calculated 94 <100 mg/dL [facility] Comment:Desirable LDL: less than 100 mg/dLNear Optimal/Above Optimal LDL: 110- 129 mg/dLBorderline High LDL: 130-159 mg/dLHigh LDL: 160-189 mg/dLVery High LDL: greater than or equal to 190 mg/dL HDL Cholesterol 31(L) >40 mg/dL [facility] Comment:Desirable HDL: great er than 40 mg/dL Note: This HDL assay may give artificially low results in patients with liver disease. Blood Venous blood specimen / Unknown 04/07/2025 10:52 AM EST 04/07/2025 2:21 PM EST us eHnry Fajardo MD LAB BLOOD ORDERABL ES Final Result Performing Organization Address City/[facility]/ZIP Co de Phone Number [facility] [address] [place] [phone] * (ABNORMAL) Comprehensive Metabolic Panel (04/07/2025 10:52 AM EST) Sodium 140 135 - 145 mmol/L [facility] Potassium 3.5 3.3 - 5.1 mmol/L [facility] Chloride 107 96 - 108 mmol/L [facility] Carbon Dioxide 24 22 - 29 mmol/L [facility] Anion Gap 13 12 - 20 [facility] Urea Nitrogen (BUN) 14 9 - 16 mg/dL [facility] Creatinine, Serum 0.66 0.5 - 1.4 mg/dL [facility] Estimated Glomerular Filt Rate >60 [facility] Comment:Chronic Kidney Disea se: Estimated GFR < 60 mL/min/1.28h4Hyctqq Kidney Disease: Estimated GFR < 15 mL/min/1.73m2 Glucose 207(H) 60 - 115 mg/dL [facility] Calcium 8.7 8.4 - 10.2 mg/dL [facility] Bilirubin, Total 0.3 0.0 - 1.0 mg/dL [facility] Aspartate Amino Transferase 38(H) 5 - 31 U/L [facility] Alanine Aminotransferase 37(H) 0 - 31 U/L [facility] Total Protein 7.0 6.5 - 8.0 g/dL [facility] Albumin Level 4.1 3.5 - 5.0 g/dL [facility] Alkaline Phosphatase 85 39 - 117 U/L [facility] Blood Venous blood specimen / Unknown 04/07/2025 10:52 AM EST 04/07/2025 2:21 PM EST us Henry Fajardo MD LAB BLOOD ORDERABL ES Final Result [facility] [address] [place] [phone] * CT Lung Screening Low dose (02/28/2025 10:39 AM EDT) Anatomical Region Laterality Modality Lung Computed Tomogra phy 02/28/2025 10:3 9 AM EDT Narrative 02/28/2025 11:12 AM EDT [address] [address] [address] Scan Report Signed Patient: Marie Cobos MR#: [id number] : 1975 Acct:[id number] Age/Sex: 49 / F ADM Date: 02/28/25 Loc: HO.CT Attending Dr: Brandy Greenberg PA-C Ordering Physician: Brandy Greenberg PA-C Date of Service: 02/28/25 Procedure(s): CT lung screening Accession Number(s): [id number] cc: Henry Harvey MD; Brandy Greenberg PA-C Report Number: [id number]: Total DLP = 64.00 mGy-cm Reason for [...] for CT CHEST LOW DOSE CANCER SCREENING ([id number]) can be placed. Electronically signed by: Jerson Salvador MD 02/28/2025 11:09 AM EDT Dictated By: Jerson Salvador MD Signed By: <Electronically signed by Jerson Salvador MD in OV> 02/28/25 1109 DD/ 1039 TD/TT: 02/28/25 1054 Systems Integration Engineer: Procedure Note Donotuseinterpreter, Image - 02/28/[address] [address] [address] Scan Report Signed Patient: Marie Cobos AMR#: [id number] : 1975Acct:[id number] Age/Sex: 49 / FADM Date: 02/28/25 Loc: HO.CT Attending Dr: Brandy Greenberg PA-C Ordering Physician: Brandy Greenberg PA-C Date of Service: 02/28/25 Procedure(s): CT lung screening Accession Number(s): [id number] cc: Henry Harvey MD; Brandy Greenberg PA-C Report Number: [id number]: Total DLP = 64.00 mGy-cm Reason for [...] for CT CHEST LOW DOSE CANCER SCREENING ([id number]) can be placed. Electronically signed by: Jerson Salvador MD 02/28/2025 11:09 AM EDT RP Dictated By: Jerson Salvador MD Signed By: <Electronically signed by Jerson Salvador MD in OV> 02/28/25 1109 DD/ 1039 TD/TT: 02/28/25 1054 Systems Integration Engineer: [facility] External Provider IMG CT PROCEDURES Final Result * Hepatitis C Antibody with Reflex to HCV, RNA, Quantitative, Real-Time PCR (02/06/2023 3:56 PM EDT) Hepatitis C Antibody Nonreactive Nonreactive [facility] Comment:Antibodies to HCV no t detected; does not exclude early acuteHCV infection. Blood Venous blood specimen / Unknown 02/06/2023 3:56 PM EDT 02/06/2023 5:49 PM EDT Henry Fajardo MD LAB BLOOD ORDERABL ES Final Result [facility] [address] [place] [phone] * BI Mammogram Screening Tomosynthesis Bilateral (01/06/2023 11:30 AM EDT) Anatomical Region Laterality Modality Breast Bilateral Mammography 01/06/2023 11:3 0 AM EDT Narrative 01/09/2023 12:13 PM EDT [address] [place] [address] Mammography Report Signed Patient: Marie Cobos MR#: [id number] : 1975 Acct:[id number] Age/Sex: 47 / F ADM Date: 01/06/23 Loc: HO.MAMMO Attending Dr: Henry Fajardo MD Ordering Physician: Henry Harvey MD Res ults: Date of Service: 01/06/23 Follow Up: Procedure(s): MM tomosynthesis screening BI Accession Number(s): [id number] cc: Henry Harvey MD EXAMINATION: MM SCREENING [...] in OV> 01/09/23 1210 DD/ 1130 TD/TT: Systems Integration Engineer: Procedure Note Donotuseinterpreter, Image - 01/09/[address] [place] [address] Mammography Report Signed Patient: Marie Cobos AMR#: M [id number] : 1975Acct:[id number] Age/Sex: 47 / FADM Date: 01/06/23 Loc: HO.MAMMO Attending Dr: Henry Fajardo MD Ordering Physician: Henry Harvey ults: Date of Service: 01/06/23Follow Up: Procedure(s): MM tomosynthesis screening BI Accession Number(s): [id number] cc: Henry Harvey MD EXAMINATION: MM SCREENING [...] in OV> 01/09/23 1210 DD/ 1130 TD/TT: Systems Integration Engineer: us Henry Fajardo MD IMG BI PROCEDURES Final Result * HPV E6/E7 RFLX LG 16 18/45 (12/15/2021 1:36 PM EDT) HPV 16 RNA [facility] HPV 18/45 RNA [facility] HPV E6 E7 ADD [facility] HPV mRNA E6/E7 rflx Not Detected Not Detected [facility] Comment: Methodology: Chief Executive-Mediated Amplification This assay detects E6/E7 viral messenger RNA (mRNA) from 14 high-risk HPV types (16,18,31,33,35,39,45,51,52,56,58,59,66,68). Cervical sources are required for HPV testing. If a vaginal source from a patient who has had a total hysterectomy with removal of cervix was submitted, please contact the testing laboratory for alternative testing options. For additional information, please refer to http://education.MobSmith/faq/UGU604b4 (This link if provided for information/ educational purposes only.) THIS TEST WAS PERFORMED AT: [facility] [address] [place] [address] [address]LO[address],[place] [phone] LAMINE PIMENTEL MD 12/15/2021 1:36 PM EDT Mina Alcantar MD HISTORICAL/NON ORDERABLE LABS Fi nal Result [facility] [place] [address], * Pap Smear (12/15/2021) Historical Provider HEALTH MAINTENANCE Final Result from Last 3 Months or Most Recently Relevant to Health Maintenance Additional Health Concerns Active Problems Noted Date [...] neuropathy 04/21/2025 Patient has diabetic neuropathy 04/21/2025 Insurance [employer] [place] [facility] AD[place] Care Teams Base Filler Relationship Specialty Start Date End Date Henry Harvey MD [address] [place] [address] PCP - General Internal Medicine 10/27/19
== END 2025-04-22 13:57 | disposition home or self-care (01) ==
LOC: HO.MAMMO 13:56
PROVIDERS: PCP Internal Medicine; Visit Provider Internal Medicine
DX: Z12.31 Encounter for screening mammogram for malignant neoplasm of breast (principal)
CPT/HCPCS: 77063; 77067

== ENCOUNTER → 2025-04-22 14:00 | Outpatient (BNV) | payer MEDICAID, SELFPAY | PROVIDERS: PCP Internal Medicine; Visit Provider Internal Medicine | DX: Z12.31 Encounter for screening mammogram for malignant neoplasm of breast (principal) | CPT/HCPCS: 77063; 77067 ==